=== PATIENT | female | born 1935 | race Caucasian/White ===

== ENCOUNTER 2019-01-07 20:41 | Inpatient (IN) | payer OTHER ==
--- NOTE | 2019-01-07 20:52 | PDOC ---
History of Present Illness - General Stated Complaint: FALL Time Seen by Provider: 01/07/19 20:52 History Source: Patient Exam Limitations: No Limitations - History of Present Illness Initial Comments: 01/07/19 21:09 Leena Oliva is a 83yF w HTN, a fib, valve replacement (20yrs ago) on coumadin and 3L NC baseline presenting with head trauma s/p fall. At 6pm today at [facility], she stood up from seat after eating dinner, turned around, legs gave way and fell down hitting lateral aspect of L eye orbit. No LOC, vomiting. Superficial abrasions to L and R hand thumbs. Denies cardiac arrythmia. Denies fever, face pain, change in vision, nausea, SOB, chest/AB pain, urinary/bowel mvmt changes. Had tetanus shot within last 10yrs. Past History - Past Medical History Allergies/Adverse Reactions: Allergies Allergy/AdvReac Type Severity Reaction Status Date / Time amoxicillin trihydrate Allergy Intermediate Rash Verified 01/07/19 20:55 [From Augmentin] potassium clavulanate Allergy Intermediate Rash Verified 01/07/19 20:55 [From Augmentin] codeine Allergy Unknown Rash Verified 01/07/19 20:55 propoxyphene HCl Allergy Unknown Rash Verified 01/07/19 20:55 [From Darvon] valsartan [From Diovan] Allergy Unknown Rash Verified 01/07/19 20:55 dairy products AdvReac Unknown Uncoded 01/07/19 20:55 Home Medications: Ambulatory Orders Aspirin [ASA -] 81 mg PO DAILY 05/09/14 Furosemide [Lasix -] 20 mg PO ACDIN 05/09/14 Furosemide [Lasix -] 40 mg PO ACBK 05/09/14 Metoprolol Tartrate 100 mg PO BID 05/09/14 Oyster Shell Calcium + D Tab 1 tab PO BID 05/09/14 Pantoprazole Sodium [Protonix] 40 mg PO DAILY 05/09/14 Potassium Chloride [K-Dur] 20 meq PO BID 05/09/14 Vitamin D3 1,000 units PO DAILY 05/09/14 Warfarin Sodium [Coumadin] 2.5 mg PO ASDIR 05/09/14 Warfarin Sodium [Coumadin] 5 mg PO ASDIR 05/09/14 Anemia: Yes Cardiac Disorders: Yes (at fib; rheumatic heart disease) GI Disorders: Yes (gerd) HTN: Yes - Surgical History Abdominal Surgery: Yes (ovarian cyst removed) Appendectomy: Yes Cardiac Surgery: Yes (valve replacement) Orthopedic Surgery: Yes (ruptured disc repair) - Suicide/Smoking/Psychosocial Hx Smoking History: Never smoked Review of Systems - Review of Systems Constitutional: No: Chills, Fever HEENTM: No: Eye Pain, Recent change in vision, Ear Pain, Nose Pain, Throat Pain , Mouth Pain Respiratory: No: Cough, Shortness of Breath Cardiac (ROS): No: Chest Pain, Lightheadedness, Palpitations ABD/GI: No: Abdominal Distended, Constipated, Diarrhea, Nausea, Vomiting : No: Burning, Dysuria, Discharge, Flank Pain, Hematuria, Incontinence Musculoskeletal: No: Back Pain, Joint Pain, Muscle Pain, Muscle Weakness Integumentary: No: Bruising Neurological: No: Headache, Numbness, Paresthesia, Seizure, Tingling Psychiatric: No: Anxiety, Depression, Stressors Endocrine: No: Excessive Sweating, Flushing, Intolerance to Cold, Intolerance to Heat Hematologic/Lymphatic: Yes: Easy Bleeding. No: Blood Clots *Physical Exam - Physical Exam General Appearance: Yes: Nourished, Appropriately Dressed. No: Apparent Distress HEENT: positive: EOMI, SALOME, Normal Voice, Hearing Grossly Normal, Other (5cm abrasion over L lateral eye orbit). negative: Scleral Icterus (R), Scleral Icterus (L), Nasal Congestion, Rhinorrhea Neck: positive: Supple. negative: Tender, Rigid Respiratory/Chest: positive: Lungs Clear, Normal Breath Sounds. negative: Chest Tender, Respiratory Distress, Crackles, Rales, Rhonchi, Stridor, Wheezing Cardiovascular: positive: S1, S2, Tachycardia, Irregularly Irregular, Other ( mechanical click). negative: Edema Gastrointestinal/Abdominal: positive: Normal Bowel Sounds, Flat, Soft. negative : Tender, Organomegaly Extremity: positive: Normal Capillary Refill, Other (abrasions L/R thenar eminences w dried blood and tape, no tenderness). 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 negative: Sensory Deficit, Confused, Disoriented ED Treatment Course - LABORATORY CBC & Chemistry Diagram: 01/07/19 22:00 01/07/19 22:00 Medical Decision Making - Medical Decision Making 01/07/19 21:18 CBC CMP trop coags EKG CXR UA Ux head/c-spine/facial bone CT show no acute bleed/fracture CXR shows bilateral basilar effusions EKG shows a fib HR 99, QTc 436 Hgb 8.1, INR 2.5 on coumadin, trop 0.07 UA neg *Draw 2nd trop, BNP, CBC at 1am Leena Oliva is a 83yF w HTN, a fib, valve replacement (20yrs ago) on coumadin and 3L NC baseline presenting with head trauma s/p fall. EKG shows atrial fibrillation. Head/c-spine/facial bone CT show no acute bleed/ fracture. Neuro intact, denies any pain. Hgb 8.1, INR 2.5 therapeutic on coumadin, elevated trop 0.07. CXR shows bilateral basilar effusions Admitted to tele Dr Upton for syncope in setting of elevated troponin, a fib, anemia. Placed cardiology consult order for [place] *Draw 2nd trop, BNP, CBC at 1am Signed out to night team PCP Dr Roque Upton fuller brush worker contact - [facility] [phone] *DC/Admit/Observation/Transfer Diagnosis at time of Disposition: Syncope Qualifiers: Syncope type: unspecified Qualified Code(s): R55 - Syncope and collapse Atrial fibrillation Qualifiers: Atrial fibrillation type: chronic Qualified Code(s): I48.2 - Chronic atrial fibrillation Anemia Qualifiers: Anemia type: unspecified type Qualified Code(s): D64.9 - Anemia, unspecified - Discharge Dispostion Condition at time of disposition: Good - Referrals - Patient Instructions - Post Discharge Activity
--- NOTE | 2019-01-07 20:54 | PDOC ---
Attending Attestation - Resident Resident Name: Mauro Mathews - ED Attending Attestation I have performed the following: I have examined & evaluated the patient, The case was reviewed & discussed with the resident, I agree w/resident's findings & plan - HPI HPI: 01/07/19 23:34 Pt fell at [facility] today; fell while turning. Unwitnessed. She has a hx of anemia requiring transfusions and afib and she is on blood thinners. - Physicial Exam PE: 01/07/19 23:07 Pt reports having a mechanical fall at the [facility]; she states that she has a hx of being anemic, and that she has had blood transfusions in the past. She didn't have any dizziness today. 01/07/19 23:35 Agree with resident exam - Medical Decision Making 01/07/19 23:34 Patient Name: AMADOR MARTIN THIS IS A PRELIMINARY REPORT FROM [facility] EXAM: CT head without contrast and CT face without contrast and CT cervical spine without contrast IMAGES: 151 DATE OF EXAM: 2019-01-07 22:07:07 REASON FOR EXAM: Fall COMPARISON: None. FINDINGS: CT head: There is cerebral atrophy. Chronic microvascular ischemic changes are noted. No acute intracranial hemorrhage or acute infarction. CT face: No acute maxillofacial fracture. No acute intraorbital injury. Mild left periorbital soft tissue edema. Minimal chronic sinus changes. Small left mastoid effusion. CT cervical spine: Hyperlordosis of the cervical spine with grossly normal alignment. Degenerative changes noted. No acute cervical spine fracture or dislocation. Chronic appearing compression fractures of T2 and T3 vertebrae. Chronic left first rib fracture. Fibrotic changes in lung apices with mild pleural calcifications. Possible right pleural effusion. 01/07/19 23:33 01/07/19 23:35 Admit to tele for abs; pt is tachycardic.
[2019-01-07 22:09] LABS: BASO % 1.1 % (0-2.0); EOS % 1.2 % (0-4.5); HEMATOCRIT 25.3 % (32.4-45.2); HEMOGLOBIN 8.1 GM/dL (10.7-15.3); MCHC 31.9 g/dl (32.0-36.0); MEAN CELL VOLUME 90.9 fl (80-96); MEAN PLT VOLUME 7.1 fl (7.5-11.1); MONO % 8.9 % (3.8-10.2); NEUT % 79.8 % (42.8-82.8); PLATELET COUNT 175 K/MM3 (134-434); RBC 2.78 M/mm3 (3.60-5.2); RDW 20.8 % (11.6-15.6); WHITE BLOOD COUNT 5.1 K/mm3 (4.0-10.0)
[2019-01-07 22:25] LABS: ALBUMIN 2.9 g/dl (3.4-5.0); BILIRUBIN,TOTAL 0.4 mg/dL (0.2-1); BLOOD UREA NITROGEN 37.2 mg/dL (7-18); CALCIUM 7.9 mg/dL (8.5-10.1); CREATININE 1.3 mg/dL (0.55-1.3); INR 2.56 (0.83-1.09); POTASSIUM 3.8 mmol/L (3.5-5.1); PROTHROMBIN TIME (PATIENT) 30.5 SEC (9.7-13.0); TOT PROT 5.5 g/dl (6.4-8.2)
[2019-01-07 22:45] LABS: ANISOCYTOSIS 2+; MACROCYTOSIS 1+
[2019-01-07 23:07] LABS: EPI CELLS 2.5 /HPF (0-5/HPF); HYALINE CASTS 8 /lpf (0-8); PH,URINE 5.5 (5.0-8.0); URINE APPEARANCE CLEAR; URINE BACTERIA 2.4 /hpf (NEGATIVE); URINE BILIRUBIN NEGATIVE (NEGATIVE); URINE COLOR YELLOW; URINE GLUCOSE (UA) NEGATIVE (NEGATIVE); URINE KETONE NEGATIVE (NEGATIVE); URINE LEUK ESTERASE 1+ (NEGATIVE); URINE NITRITE NEGATIVE (NEGATIVE); URINE PROTEIN NEGATIVE (NEGATIVE); URINE RBC 1 /hpf (0-4); URINE UROBILINOGEN 0.2 mg/dL (0.2-1.0); URINE WBC 10 /hpf (0-5)
[2019-01-08] MEDS ORDERED: WARFARIN NA 2.5 MG TABLET (FP) PO ONE (00:07)
[2019-01-08] MEDS ORDERED: ATORVASTATIN CA 40 MG TABLET (FP) PO ONE (00:09)
[2019-01-08] MEDS ORDERED: ATORVASTATIN CA 40 MG TABLET (FP) ONE (01:00)
[2019-01-08 01:09] LABS: BASO % 1.2 % (0-2.0); HEMATOCRIT 25.6 % (32.4-45.2); LYMPH % 6.2 % (8-40); MCH 28.7 pg (25.7-33.7); MCHC 31.4 g/dl (32.0-36.0); MEAN CELL VOLUME 91.5 fl (80-96); MEAN PLT VOLUME 7.4 fl (7.5-11.1); MONO % 9.1 % (3.8-10.2); NEUT % 82.5 % (42.8-82.8); PLATELET COUNT 173 K/MM3 (134-434); RDW 20.8 % (11.6-15.6); WHITE BLOOD COUNT 6.8 K/mm3 (4.0-10.0)
[2019-01-08 01:39] LABS: N-TERMINAL BNP 9094.9 pg/ml (5-450)
[2019-01-08 06:13] LABS: HEMATOCRIT 23.9 % (32.4-45.2); HEMOGLOBIN 7.7 GM/dL (10.7-15.3); MCH 29.4 pg (25.7-33.7); MCHC 32.2 g/dl (32.0-36.0); MEAN CELL VOLUME 91.2 fl (80-96); MEAN PLT VOLUME 7.3 fl (7.5-11.1); PLATELET COUNT 162 K/MM3 (134-434); RBC 2.62 M/mm3 (3.60-5.2); RDW 20.8 % (11.6-15.6); WHITE BLOOD COUNT 5.5 K/mm3 (4.0-10.0)
[2019-01-08 06:40] LABS: ALBUMIN 2.7 g/dl (3.4-5.0); BILIRUBIN,TOTAL 0.5 mg/dL (0.2-1); BLOOD UREA NITROGEN 36.6 mg/dL (7-18); CREATININE 1.2 mg/dL (0.55-1.3); POTASSIUM 3.5 mmol/L (3.5-5.1); TOT PROT 5.1 g/dl (6.4-8.2)
[2019-01-08 07:13] LABS: INR 1.99 (0.83-1.09); PROTHROMBIN TIME (PATIENT) 23.7 SEC (9.7-13.0)
--- NOTE | 2019-01-08 11:36 | CON.CARD ---
Consult Consult Specialty:: Cardiology Referred by:: Medicine Reason for Consultation:: fall/syncope, hx afib, heart valve replacement - History of Present Illness Chief Complaint: fall History of Present Illness: 83F h/o HTN, afib s/p mechanical MVR and AVR (>20 years ago) on coumadin and 3L NC O2 at [place] p/w fall, head trauma. On day of admission she stood up after eating dinner and felt her legs gave way. No dizziness, lightheadedness, syncope. In recent past she has felt short of breath lying down flat, recently has been on home O2. Used to see Dr. Faith for cardio, not sure when she last saw him and doesn't remember last echo. No edema, chest pain, palps. - Alcohol/Substance Use Hx Alcohol Use: No - Smoking History Smoking history: Never smoked Home Medications - Allergies Allergies/Adverse Reactions: Allergies Allergy/AdvReac Type Severity Reaction Status Date / Time amoxicillin trihydrate Allergy Intermediate Rash Verified 01/07/19 20:55 [From Augmentin] potassium clavulanate Allergy Intermediate Rash Verified 01/07/19 20:55 [From Augmentin] codeine Allergy Unknown Rash Verified 01/07/19 20:55 propoxyphene HCl Allergy Unknown Rash Verified 01/07/19 20:55 [From Darvon] valsartan [From Diovan] Allergy Unknown Rash Verified 01/07/19 20:55 dairy products AdvReac Unknown Uncoded 01/07/19 20:55 - Home Medications Home Medications: Ambulatory Orders Buspirone HCl [Buspar -] 5 mg PO BID 01/08/19 Docusate Sodium [Colace] 100 mg PO DAILY 01/08/19 Ferrous Sulfate 325 mg PO DAILY 01/08/19 Folic Acid 1 mg PO DAILY 01/08/19 Metoprolol Succinate 50 mg PO BID 01/08/19 Multivitamin,Ther and Minerals [Vitamin and Minerals] 1 each PO DAILY 01/08/19 Phytonadione [Mephyton -] 5 mg PO WEEKLY 01/08/19 Ranitidine HCl 150 mg PO DAILY 01/08/19 Sennosides [Senna] 17.2 mg PO DAILY 01/08/19 Torsemide 20 mg PO DAILY 01/08/19 Tuberculin,Purif.prot.deriv. [Tubersol] 0.1 ml ID DAILY 01/08/19 Warfarin Sodium [Coumadin] 2.5 mg PO ASDIR 01/08/19 Warfarin Sodium [Coumadin] 3 mg PO ASDIR 01/08/19 Family Medical History Family History: Unremarkable Review of Systems - Review of Systems Constitutional: reports: No Symptoms Eyes: reports: No Symptoms HENT: reports: No Symptoms Neck: reports: No Symptoms Cardiovascular: reports: No Symptoms Respiratory: reports: No Symptoms Gastrointestinal: reports: No Symptoms Genitourinary: reports: No Symptoms Musculoskeletal: reports: No Symptoms Integumentary: reports: No Symptoms Neurological: reports: No Symptoms Endocrine: reports: No Symptoms Hematology/Lymphatic: reports: No Symptoms Psychiatric: reports: No Symptoms Vital Signs: Vital Signs Temperature 98.1 F 01/08/19 06:08 Pulse Rate 82 01/08/19 10:00 Respiratory Rate 25 H 01/08/19 10:00 Blood Pressure 95/63 01/08/19 10:00 O2 Sat by Pulse Oximetry (%) 95 01/08/19 09:00 Constitutional: Yes: No Distress, Calm Eyes: Yes: Conjunctiva Clear, EOM Intact HENT: Yes: Atraumatic, Normocephalic Neck: Yes: Supple, Trachea Midline Respiratory: Yes: Regular, Diminished (dec breath sounds at bases bilaterally) Gastrointestinal: Yes: Normal Bowel Sounds, Soft Cardiovascular: Yes: Pulse Irregular JVD: Yes Heart Sounds: Yes: S1, S2 Edema: No Peripheral Pulses WNL: Yes Peripheral Pulses: 2+ Left Doralis Pedis, 2+ Right Dorsalis Pedis Integumentary: No: Jaundice Neurological: Yes: Alert, Oriented Psychiatric: No: Agitated - Other Data Labs, Other Data: CBC, BMP 01/08/19 05:25 01/08/19 05:25 INR, PTT INR 1.99 (0.83-1.09) H 01/08/19 05:25 Troponin, BNP 01/07/19 01/08/19 01/08/19 22:00 00:52 05:25 Troponin I 0.07 H 0.07 H 0.06 H B-Natriuretic Peptide 9094.9 H Troponin, BNP 01/07/19 01/08/19 01/08/19 22:00 00:52 05:25 Troponin I 0.07 H 0.07 H 0.06 H B-Natriuretic Peptide 9094.9 H Assessment/Plan EKG afib, no ischemic changes CXR: stephie pleural effusions, + congestive changes tele: afib, rate controlled fall - patient denies syncope, dizziness - monitoring on tele - echo ordered stephie pleural effusions, elevated BNP, acute HF exacerbation - BNP >9000, JVD on exam with congestive changes on CXR - echo pending - on torsemide 20 mg daily outpatient - lasix 40 mg IV daily, monitor Cr, lytes daily weights elevated trop - indeterminate range, no ischemic changes on EKG - unlikely ACS h/o mechanical MVR, AVR - goal INR 2.5-3.5 - cont coumadin - echo pending afib - cont coumadin, metoprolol, rate stable HLD - cont statin
[2019-01-08] MEDS: FUROSEMIDE 40 MG/4 ML INJECTABLE VIAL IVPUSH SCH (12:10)
--- NOTE | 2019-01-08 12:51 | HP ---
Admitting History and Physical - Primary Care Physician PCP: Roque Upton - Admission Chief Complaint: fall History of Present Illness: Pt with known mechanical AVR, MVR, A fib, on AC, fell (at NH, stood up from wheelchair, turned and fell) and hit her head. History Source: Patient Limitations to Obtaining History: No Limitations - Past Medical History Cardiovascular: Yes: AFIB, HTN Heme/Onc: Yes: Anemia (s/p recent PRBC Tx) - Past Surgical History Additional Past Surgical History: mechanical AVR, and MVR - Advance Directives Advance Directives: Yes: DNR, MOLST - Smoking History Smoking history: Never smoked - Alcohol/Substance Use Hx Alcohol Use: No Home Medications - Allergies Allergies/Adverse Reactions: Allergies Allergy/AdvReac Type Severity Reaction Status Date / Time amoxicillin trihydrate Allergy Intermediate Rash Verified 01/07/19 20:55 [From Augmentin] potassium clavulanate Allergy Intermediate Rash Verified 01/07/19 20:55 [From Augmentin] codeine Allergy Unknown Rash Verified 01/07/19 20:55 propoxyphene HCl Allergy Unknown Rash Verified 01/07/19 20:55 [From Darvon] valsartan [From Diovan] Allergy Unknown Rash Verified 01/07/19 20:55 dairy products AdvReac Unknown Uncoded 01/07/19 20:55 - Home Medications Home Medications: Ambulatory Orders Buspirone HCl [Buspar -] 5 mg PO BID 01/08/19 Docusate Sodium [Colace] 100 mg PO DAILY 01/08/19 Ferrous Sulfate 325 mg PO DAILY 01/08/19 Folic Acid 1 mg PO DAILY 01/08/19 Metoprolol Succinate 50 mg PO BID 01/08/19 Multivitamin,Ther and Minerals [Vitamin and Minerals] 1 each PO DAILY 01/08/19 Phytonadione [Mephyton -] 5 mg PO WEEKLY 01/08/19 Ranitidine HCl 150 mg PO DAILY 01/08/19 Sennosides [Senna] 17.2 mg PO DAILY 01/08/19 Torsemide 20 mg PO DAILY 01/08/19 Tuberculin,Purif.prot.deriv. [Tubersol] 0.1 ml ID DAILY 01/08/19 Warfarin Sodium [Coumadin] 2.5 mg PO ASDIR 01/08/19 Warfarin Sodium [Coumadin] 3 mg PO ASDIR 01/08/19 Review of Systems - Review of Systems Constitutional: denies: Chills, Fever Eyes: denies: Blurred Vision, Double Vision HENT: denies: Ear Discharge, Nasal Congestion, Throat Pain Neck: reports: Stiffness. denies: Pain on Movement Cardiovascular: reports: Edema, Palpitations. denies: Chest Pain Respiratory: denies: Cough, SOB Gastrointestinal: denies: Abdominal Pain, Diarrhea, Vomiting Genitourinary: denies: Burning, Discharge Musculoskeletal: denies: Back Pain, Muscle Pain Integumentary: denies: Pruritis, Rash Neurological: denies: Change in Speech, Confusion, Headache, Numbness Endocrine: denies: Excessive Sweating, Intolerance to Cold Hematology/Lymphatic: reports: Easily Bruised (since on Coumadin) Psychiatric: denies: Anxiety, Depression Physical Examination Vital Signs: Vital Signs Temperature 98.1 F 01/08/19 06:08 Pulse Rate 82 01/08/19 10:00 Respiratory Rate 25 H 01/08/19 10:00 Blood Pressure 95/63 01/08/19 10:00 O2 Sat by Pulse Oximetry (%) 95 01/08/19 09:00 Constitutional: Yes: No Distress Eyes: Yes: Conjunctiva Clear, EOM Intact HENT: Yes: Epistaxis, Rhinnorhea. No: Drooling Neck: Yes: Lymphadenopathy Cardiovascular: Yes: Pulse Irregular, S1, S2 Respiratory: Yes: Regular, CTA Bilaterally, Rales Gastrointestinal: Yes: Normal Bowel Sounds, Soft. No: Tenderness ...Rectal Exam: Yes: Deferred Renal/: Yes: CVA Tenderness - Left, CVA Tenderness - Right Breast(s): Yes: Other (deferred) Musculoskeletal: No: Back Pain, Joint Swelling Edema: No Integumentary: Yes: Bruising (left periorbital) Neurological: Yes: Alert, Oriented, Other (motor and sensory examiantion is symmetric) Psychiatric: Yes: Alert, Oriented Labs: CBC, BMP 01/08/19 05:25 01/08/19 05:25 Imaging - Results Chest X-ray: Report Reviewed X-ray: Report Reviewed Cat Scan: Report Reviewed Problem List - Problems (1) Elevation of cardiac enzymes Code(s): R74.8 - ABNORMAL LEVELS OF OTHER SERUM ENZYMES (2) Mechanical heart valve present Code(s): Z95.2 - PRESENCE OF PROSTHETIC HEART VALVE (3) Anemia Code(s): D64.9 - ANEMIA, UNSPECIFIED Qualifiers: Anemia type: unspecified type Qualified Code(s): D64.9 - Anemia, unspecified (4) Fall Code(s): W19.XXXA - UNSPECIFIED FALL, INITIAL ENCOUNTER (5) Atrial fibrillation Code(s): I48.91 - UNSPECIFIED ATRIAL FIBRILLATION Qualifiers: Atrial fibrillation type: chronic Qualified Code(s): I48.2 - Chronic atrial fibrillation (6) Syncope Code(s): R55 - SYNCOPE AND COLLAPSE Qualifiers: Syncope type: unspecified Qualified Code(s): R55 - Syncope and collapse Assessment/Plan Admit to monitor bed Cardio consult, appreciated Serial CE Unclear cause of anemia, send iron studies Anemia in a pt with + Trop I; to transfuse PRBC; monito rINR Subtherapeutic INR for a person with mechanical valve; start Heparin iv infusion , COumadin; to f/u INR Pt's condition was reviewed with pt and 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
[2019-01-08] MEDS ORDERED: HEPARIN NA (PORCINE) 5,000 UNITS/ML 1ML VIAL IVPUSH PRN ×2 (14:37)
[2019-01-08] MEDS ORDERED: TORSEMIDE 20 MG TABLET (FP) PO SCH (14:45)
[2019-01-08] MEDS: FOLIC ACID 1 MG TABLET (FP) PO SCH (15:44)
[2019-01-08] MEDS: HEPARIN - 25,000 UNIT in SODIUM CHLORIDE 495 ML IV SCH (15:44)
[2019-01-08] MEDS: DOCUSATE SODIUM 100 MG CAPSULE (FP) PO SCH (15:44)
[2019-01-08] MEDS: RANITIDINE HCL 150 MG TABLET (FP) PO SCH (15:44)
[2019-01-08 17:34] LABS: IRON SERUM 33 ug/dL (50-175); TOTAL IRON BINDING CAPACITY 327 ug/dL (250-450)
[2019-01-08] MEDS ORDERED: WARFARIN NA 2.5 MG TABLET (FP) PO SCH (18:00)
[2019-01-08] MEDS ORDERED: WARFARIN NA 3 MG TABLET PO ONE (18:00)
[2019-01-08] MEDS: busPIRone HCL 5 MG TABLET PO SCH (21:09)
[2019-01-08] MEDS: SENNOSIDES 8.6MG TABLET (FP) PO SCH (21:09)
[2019-01-09 06:29] LABS: HEMATOCRIT 25.2 % (32.4-45.2); HEMOGLOBIN 8.1 GM/dL (10.7-15.3); MCH 29.5 pg (25.7-33.7); MCHC 32.3 g/dl (32.0-36.0); MEAN CELL VOLUME 91.3 fl (80-96); MEAN PLT VOLUME 7.7 fl (7.5-11.1); PLATELET COUNT 146 K/MM3 (134-434); RBC 2.76 M/mm3 (3.60-5.2); RDW 20.4 % (11.6-15.6); WHITE BLOOD COUNT 4.9 K/mm3 (4.0-10.0)
[2019-01-09 06:54] LABS: ALBUMIN 2.4 g/dl (3.4-5.0); BILIRUBIN,TOTAL 1.2 mg/dL (0.2-1); BLOOD UREA NITROGEN 42.2 mg/dL (7-18); CALCIUM 7.6 mg/dL (8.5-10.1); POTASSIUM 3.8 mmol/L (3.5-5.1); TOT PROT 4.7 g/dl (6.4-8.2)
--- NOTE | 2019-01-09 07:11 | EKG ---
Test Reason : Blood Pressure : / mmHG Vent. Rate : 099 BPM Atrial Rate : 110 BPM P-R Int : 000 ms QRS Dur : 082 ms QT Int : 340 ms P-R-T Axes : 000 068 006 degrees QTc Int : 436 ms ATRIAL FIBRILLATION NONSPECIFIC ST ABNORMALITY ABNORMAL ECG NO PREVIOUS ECGS AVAILABLE Confirmed by NARINDER MARSHALL MD ([id number]) on 01/09/2019 7:11:24 AM Referred By: Confirmed By:NARINDER MARSHALL MD
--- NOTE | 2019-01-09 09:02 | PN ---
Progress Note, Physician Chief Complaint: s/p fall History of Present Illness: fall sec to leg weakness. no syncope. denies sob, leg swelling. no cp, palp - Current Medication List Current Medications: Active Medications Buspirone HCl (Buspar -) 5 mg PO BID [facility] Last Admin: 01/08/19 21:09 Dose: 5 mg Docusate Sodium (Colace -) 100 mg PO DAILY [facility] Last Admin: 01/08/19 15:44 Dose: 100 mg Folic Acid (Folic Acid -) 1 mg PO DAILY [facility] Last Admin: 01/08/19 15:44 Dose: 1 mg Furosemide (Lasix Injection -) 40 mg IVPUSH DAILY [facility] Last Admin: 01/08/19 12:10 Dose: 40 mg Heparin Sodium (Porcine) (Heparin -) 1,000 unit IVPUSH PRN PRN PRN Reason: Heparin Heparin Sodium (Porcine) (Heparin -) 5,000 unit IVPUSH PRN PRN PRN Reason: Heparin Heparin Sodium (Porcine) 25, (000 unit/ Sodium Chloride) 500 mls @ 16 mls/hr IV TITR [facility]; Protocol Last Titration: 01/09/19 04:19 Dose: 800 unit/hr, 16 mls/hr Metoprolol Succinate (Toprol Xl -) 50 mg PO BID [facility] Last Admin: 01/08/19 21:09 Dose: 50 mg Ranitidine HCl (Zantac -) 150 mg PO DAILY [facility] Last Admin: 01/08/19 15:44 Dose: 150 mg Senna (Senna -) 2 tab PO HS [facility] Last Admin: 01/08/19 21:09 Dose: 2 tab - Objective Vital Signs: Vital Signs Temperature 97.8 F 01/09/19 06:00 Pulse Rate 78 01/09/19 06:00 Respiratory Rate 21 H 01/09/19 06:00 Blood Pressure 107/61 01/09/19 06:00 O2 Sat by Pulse Oximetry (%) 95 01/08/19 21:00 Constitutional: Yes: Well Nourished, No Distress, Calm Cardiovascular: Yes: Pulse Irregular (mech S2), S1, S2. No: Gallop, Murmur Respiratory: Yes: Regular, Diminished (bases), Rales (R base). No: Accessory Muscle Use Extremities: No: Cold Edema: No Neurological: Yes: Alert, Oriented Psychiatric: No: Agitated Labs: CBC, BMP 01/09/19 05:20 01/09/19 05:20 INR, PTT INR 1.99 (0.83-1.09) H 01/08/19 05:25 Assessment/Plan EKG afib, no ischemic changes CXR: stephie pleural effusions, + congestive changes tele: AF, good HR. artifact fall - patient denies syncope, dizziness--fall mechanical in nature - on AC as outpt, CT head here no bleed - echo ordered acute HF exacerbation - BNP >9000, JVD on exam with congestive changes on CXR - echo pending - on torsemide 20 mg daily outpatient - denies sob, labs stable. cont lasix 40 mg IV daily, monitor labs (and daily wts once pt on floor). rpt cxr in am elevated trop - indeterminate range, no ischemic changes on EKG - unlikely ACS h/o mechanical MVR, AVR - goal INR 2.5-3.5 - cont coumadin - cont UFH gtt until INR therapeutic - echo pending afib - cont coumadin, metoprolol, rate stable anemia: - counts stable here, no baseline data available HLD - cont statin
[2019-01-09] MEDS: busPIRone HCL 5 MG TABLET PO SCH ×2 (11:04→21:19)
[2019-01-09] MEDS: DOCUSATE SODIUM 100 MG CAPSULE (FP) PO SCH (11:05)
[2019-01-09] MEDS: FUROSEMIDE 40 MG/4 ML INJECTABLE VIAL IVPUSH SCH (11:05)
[2019-01-09] MEDS: RANITIDINE HCL 150 MG TABLET (FP) PO SCH (11:05)
[2019-01-09] MEDS: FOLIC ACID 1 MG TABLET (FP) PO SCH (11:05)
[2019-01-09 12:30] LABS: INR 2.32 (0.83-1.09); PROTHROMBIN TIME (PATIENT) 27.6 SEC (9.7-13.0)
--- NOTE | 2019-01-09 16:21 | ECHO ---
Name: AMADOR MARTIN, Exam:Adult Echocardiogram Study Date: 01/09/2019 01:32 PM Age: 83 yrs Reason For Study: HISTORY OF MVR, AVR, CHF Height: 64 in Weight: 80 lb BSA: 1.3 m2 MMode/2D Measurements & Calculations IVSd: 0.95 cm Ao root diam: 2.7 cm LVIDd: 3.6 cm LA dimension: 5.3 cm LVIDs: 2.7 cm LVPWd: 1.1 cm LVPWs: 1.2 cm EDV(Teich): 53.7 ml ESV(Teich): 27.2 ml LVOT diam: 2.1 cm LAV (MOD-bp): 84.0 ml Doppler Measurements & Calculations Ao V2 max: 247.6 cm/sec MVA(VTI): 2.0 cm2 Ao max P.6 mmHg MV V2 max: 169.4 cm/sec Ao V2 mean: 156.6 cm/sec MV max P.5 mmHg Ao mean P.5 mmHg MV V2 mean: 84.8 cm/sec Ao V2 VTI: 45.2 cm MV mean P.9 mmHg MV V2 VTI: 26.0 cm B[place](I,D): 1.2 cm2 B[place](V,D): 1.2 cm2 LV V1 max P.9 mmHg MR max daron: 320.0 cm/sec LV V1 mean P.4 mmHg MR max P.0 mmHg LV V1 max: 85.4 cm/sec LV V1 mean: 53.9 cm/sec LV V1 VTI: 15.6 cm SV(LVOT): 52.2 ml TR max daron: 327.1 cm/sec TR max P.6 mmHg RVSP(TR): 53.6 mmHg PA V2 max: 84.8 cm/sec PI end-d daron: 140.5 cm/sec PA max P.9 mmHg RAP systole: 10.0 mmHg Procedure A complete two-dimensional transthoracic echocardiogram was performed (2D, M-mode, Doppler and color flow Doppler). Technically limited study. Left Ventricle The left ventricle is normal in size. Left ventricular systolic function is mildly reduced. Ejection Fraction = 45-50%. There is mild global hypokinesis of the left ventricle. Right Ventricle The right ventricle is not well visualized. Atria The left atrium is severely dilated. The right atrium is severely dilated. Mitral Valve There is a mechanical mitral valve. The prosthetic mitral valve is well-seated. There is mild mitral regurgitation. Tricuspid Valve The tricuspid valve is normal in structure and function. There is moderate to severe tricuspid regurg itation. Pulmonary artery systolic pressure is at least 54 mmHg if RA pressure is assumed 3 mmHg (IVC was not clearly visualized). Aortic Valve There is a mechanical aortic valve. The prosthetic aortic valve is well-seated. Mild aortic regurgita tion. Pulmonic Valve The pulmonic valve is not well visualized. Mild to moderate pulmonic valvular regurgitation. Great Vessels The aortic root is normal size. Pericardium/Pleura There is no pericardial effusion. Interpretation Summary Technically limited study The left ventricle is normal in size. Left ventricular systolic function is mildly reduced. There is mild global hypokinesis of the left ventricle. Ejection Fraction = 45-50%. The right ventricle is not well visualized. The left atrium is severely dilated. The right atrium is severely dilated. There is a mechanical mitral valve. The prosthetic mitral valve is well-seated. There is mild mitral regurgitation. There is moderate to severe tricuspid regurgitation. Pulmonary artery systolic pressure is at least 54 mmHg if RA pressure is assumed 3 mmHg (IVC was not clearly visualized) There is a mechanical aortic valve. The prosthetic aortic valve is well-seated. Mild aortic regurgitation. Mild to moderate pulmonic valvular regurgitation. There is no pericardial effusion. Taj Park MD 01/09/2019 04:20 PM
[2019-01-09] MEDS ORDERED: WARFARIN NA 3 MG TABLET PO ONE (18:00)
[2019-01-09] MEDS ORDERED: PT OWN MED DRAWER 7, Y5N ONE (18:01)
--- NOTE | 2019-01-09 20:06 | PN ---
Progress Note, Physician History of Present Illness: Pt w/o MORRIS, dizziness, SOB, CP, palpitations, abd pain, motpr weakness, no sensory deficit. - Current Medication List Current Medications: Active Medications Buspirone HCl (Buspar -) 5 mg PO BID [facility] Last Admin: 01/09/19 11:04 Dose: 5 mg Docusate Sodium (Colace -) 100 mg PO DAILY [facility] Last Admin: 01/09/19 11:05 Dose: 100 mg Folic Acid (Folic Acid -) 1 mg PO DAILY [facility] Last Admin: 01/09/19 11:05 Dose: 1 mg Furosemide (Lasix Injection -) 40 mg IVPUSH DAILY [facility] Last Admin: 01/09/19 11:05 Dose: 40 mg Heparin Sodium (Porcine) (Heparin -) 1,000 unit IVPUSH PRN PRN PRN Reason: Heparin Heparin Sodium (Porcine) (Heparin -) 5,000 unit IVPUSH PRN PRN PRN Reason: Heparin Heparin Sodium (Porcine) 25, (000 unit/ Sodium Chloride) 500 mls @ 16 mls/hr IV TITR [facility]; Protocol Last Titration: 01/09/19 11:16 Dose: 650 unit/hr, 13 mls/hr Metoprolol Succinate (Toprol Xl -) 50 mg PO BID [facility] Last Admin: 01/09/19 11:05 Dose: 50 mg Ranitidine HCl (Zantac -) 150 mg PO DAILY [facility] Last Admin: 01/09/19 11:05 Dose: 150 mg Senna (Senna -) 2 tab PO HS [facility] Last Admin: 01/08/19 21:09 Dose: 2 tab - Objective Vital Signs: Vital Signs Temperature 97.9 F 01/09/19 17:57 Pulse Rate 81 01/09/19 17:57 Respiratory Rate 18 01/09/19 17:57 Blood Pressure 108/46 L 01/09/19 17:57 O2 Sat by Pulse Oximetry (%) 98 01/09/19 12:31 Constitutional: Yes: No Distress, Calm Cardiovascular: Yes: Regular Rate and Rhythm, Murmur, S1, S2 Respiratory: Yes: Regular, Other (crackles at right base) Gastrointestinal: Yes: Normal Bowel Sounds, Soft. No: Tenderness Edema: No Neurological: Yes: Alert, Oriented, Other (motor and sensory symmetric in UE/ LE / face) Labs: CBC, BMP 01/09/19 05:20 01/09/19 05:20 INR, PTT INR 2.32 (0.83-1.09) H 01/09/19 07:10 Problem List - Problems (1) Elevation of cardiac enzymes Code(s): R74.8 - ABNORMAL LEVELS OF OTHER SERUM ENZYMES (2) Mechanical heart valve present Code(s): Z95.2 - PRESENCE OF PROSTHETIC HEART VALVE (3) Anemia Code(s): D64.9 - ANEMIA, UNSPECIFIED Qualifiers: Anemia type: unspecified type Qualified Code(s): D64.9 - Anemia, unspecified (4) Fall Code(s): W19.XXXA - UNSPECIFIED FALL, INITIAL ENCOUNTER (5) Atrial fibrillation Code(s): I48.91 - UNSPECIFIED ATRIAL FIBRILLATION Qualifiers: Atrial fibrillation type: chronic Qualified Code(s): I48.2 - Chronic atrial fibrillation (6) Syncope Code(s): R55 - SYNCOPE AND COLLAPSE Qualifiers: Syncope type: unspecified Qualified Code(s): R55 - Syncope and collapse Assessment/Plan Admitted to monitor bed Cardio consult, appreciated Serial CE -negative this AM S/p PRBC Tx (one unit) Subtherapeutic INR for a person with mechanical valve; started on Heparin infusion; on Coumadin; to f/u INR Pt's condition was reviewed with pt;all questions were answered. Pt's condition was reviewed with her nurses ( morning and evening shift) AM labs.
[2019-01-09] MEDS: HEPARIN - 25,000 UNIT in SODIUM CHLORIDE 495 ML IV SCH (21:16)
[2019-01-09] MEDS: SENNOSIDES 8.6MG TABLET (FP) PO SCH (21:19)
[2019-01-09 22:13] LABS: INR 2.76 (0.83-1.09); PROTHROMBIN TIME (PATIENT) 32.9 SEC (9.7-13.0)
[2019-01-10 05:54] LABS: HEMATOCRIT 25.4 % (32.4-45.2); HEMOGLOBIN 8.1 GM/dL (10.7-15.3); MCH 29.5 pg (25.7-33.7); MEAN CELL VOLUME 92.2 fl (80-96); PLATELET COUNT 167 K/MM3 (134-434); RBC 2.75 M/mm3 (3.60-5.2); RDW 20.3 % (11.6-15.6)
[2019-01-10 06:20] LABS: INR 2.89 (0.83-1.09); PROTHROMBIN TIME (PATIENT) 34.5 SEC (9.7-13.0)
[2019-01-10 06:39] LABS: ALBUMIN 2.6 g/dl (3.4-5.0); BILIRUBIN,TOTAL 0.4 mg/dL (0.2-1); BLOOD UREA NITROGEN 44.3 mg/dL (7-18); CALCIUM 7.9 mg/dL (8.5-10.1); POTASSIUM 3.9 mmol/L (3.5-5.1)
[2019-01-10] MEDS: FOLIC ACID 1 MG TABLET (FP) PO SCH (09:51)
[2019-01-10] MEDS: RANITIDINE HCL 150 MG TABLET (FP) PO SCH (09:51)
[2019-01-10] MEDS: FUROSEMIDE 40 MG/4 ML INJECTABLE VIAL IVPUSH SCH ×2 (09:51→18:44)
[2019-01-10] MEDS: busPIRone HCL 5 MG TABLET PO SCH ×2 (09:51→22:04)
[2019-01-10] MEDS: DOCUSATE SODIUM 100 MG CAPSULE (FP) PO SCH (09:51)
--- NOTE | 2019-01-10 09:51 | PN ---
Progress Note, Physician History of Present Illness: Pt w/o MORRIS, dizziness, SOB, CP, palpitations, abd pain, motor weakness, no sensory deficit. - Current Medication List Current Medications: Active Medications Buspirone HCl (Buspar -) 5 mg PO BID [facility] Last Admin: 01/09/19 21:19 Dose: 5 mg Docusate Sodium (Colace -) 100 mg PO DAILY [facility] Last Admin: 01/09/19 11:05 Dose: 100 mg Folic Acid (Folic Acid -) 1 mg PO DAILY [facility] Last Admin: 01/09/19 11:05 Dose: 1 mg Furosemide (Lasix Injection -) 40 mg IVPUSH DAILY [facility] Last Admin: 01/09/19 11:05 Dose: 40 mg Heparin Sodium (Porcine) (Heparin -) 1,000 unit IVPUSH PRN PRN PRN Reason: Heparin Heparin Sodium (Porcine) (Heparin -) 5,000 unit IVPUSH PRN PRN PRN Reason: Heparin Heparin Sodium (Porcine) 25, (000 unit/ Sodium Chloride) 500 mls @ 16 mls/hr IV TITR [facility]; Protocol Last Admin: 01/09/19 21:16 Dose: Not Given Metoprolol Succinate (Toprol Xl -) 50 mg PO BID [facility] Last Admin: 01/09/19 21:19 Dose: 50 mg Ranitidine HCl (Zantac -) 150 mg PO DAILY [facility] Last Admin: 01/09/19 11:05 Dose: 150 mg Senna (Senna -) 2 tab PO HS [facility] Last Admin: 01/09/19 21:19 Dose: 2 tab - Objective Vital Signs: Vital Signs Temperature 97.7 F 01/10/19 09:33 Pulse Rate 64 01/10/19 09:33 Respiratory Rate 17 01/10/19 09:33 Blood Pressure 114/55 L 01/10/19 09:33 O2 Sat by Pulse Oximetry (%) 100 01/10/19 08:53 Constitutional: Yes: No Distress, Calm Cardiovascular: Yes: Regular Rate and Rhythm, S1, S2 Respiratory: Yes: Regular, Other (crackles at both bases and 1/3 up) Gastrointestinal: Yes: Normal Bowel Sounds, Soft. No: Tenderness Edema: No Neurological: Yes: Alert, Oriented, Other (motor and sensory is symmetric inUE/ LE/ face.) Labs: CBC, BMP 01/10/19 05:00 01/10/19 05:00 INR, PTT INR 2.89 (0.83-1.09) H 01/10/19 05:00 - ....Imaging Other: Report Reviewed (Echo) Problem List - Problems (1) Elevation of cardiac enzymes Code(s): R74.8 - ABNORMAL LEVELS OF OTHER SERUM ENZYMES (2) Mechanical heart valve present Code(s): Z95.2 - PRESENCE OF PROSTHETIC HEART VALVE (3) Anemia Code(s): D64.9 - ANEMIA, UNSPECIFIED Qualifiers: Anemia type: unspecified type Qualified Code(s): D64.9 - Anemia, unspecified (4) Fall Code(s): W19.XXXA - UNSPECIFIED FALL, INITIAL ENCOUNTER (5) Atrial fibrillation Code(s): I48.91 - UNSPECIFIED ATRIAL FIBRILLATION Qualifiers: Atrial fibrillation type: chronic Qualified Code(s): I48.2 - Chronic atrial fibrillation (6) Syncope Code(s): R55 - SYNCOPE AND COLLAPSE Qualifiers: Syncope type: unspecified Qualified Code(s): R55 - Syncope and collapse Assessment/Plan Admitted to monitor bed Cardio consult, appreciated Serial CE -negative S/p PRBC Tx (one unit) Consider extra Lasix INR to keep w/i 2.5 to 3.5 range (for a person with mechanical valve); to f/u INR Pt's condition was reviewed with her nurses AM labs.
--- NOTE | 2019-01-10 10:38 | PN ---
Progress Note (short form) - Note Progress Note: s: no chest pain, palps, dizziness, dyspnea Current Medications Buspirone HCl (Buspar -) 5 mg PO BID [facility] Last Admin: 01/10/19 09:51 Dose: 5 mg Docusate Sodium (Colace -) 100 mg PO DAILY [facility] Last Admin: 01/10/19 09:51 Dose: 100 mg Folic Acid (Folic Acid -) 1 mg PO DAILY [facility] Last Admin: 01/10/19 09:51 Dose: 1 mg Furosemide (Lasix Injection -) 40 mg IVPUSH DAILY [facility] Last Admin: 01/10/19 09:51 Dose: 40 mg Heparin Sodium (Porcine) (Heparin -) 1,000 unit IVPUSH PRN PRN PRN Reason: Heparin Heparin Sodium (Porcine) (Heparin -) 5,000 unit IVPUSH PRN PRN PRN Reason: Heparin Heparin Sodium (Porcine) 25, (000 unit/ Sodium Chloride) 500 mls @ 16 mls/hr IV TITR [facility]; Protocol Last Admin: 01/09/19 21:16 Dose: Not Given Metoprolol Succinate (Toprol Xl -) 50 mg PO BID [facility] Last Admin: 01/10/19 09:51 Dose: 50 mg Ranitidine HCl (Zantac -) 150 mg PO DAILY [facility] Last Admin: 01/10/19 09:51 Dose: 150 mg Senna (Senna -) 2 tab PO HS [facility] Last Admin: 01/09/19 21:19 Dose: 2 tab Vital Signs Period Temp Pulse Resp BP Sys/Vergara Pulse Ox Last 24 Hr 97.7 F-97.9 F 64-88 17-18 95-126/46-86 98-100 Constitutional: Yes: Well Nourished, No Distress, Calm Cardiovascular: Yes: Pulse Irregular ([facility] S2), S1, S2. No: Gallop, Murmur Respiratory: Yes: Regular, Diminished (bases), Rales (R base). No: Accessory Muscle Use Extremities: No: Cold Edema: No Neurological: Yes: Alert, Oriented Psychiatric: No: Agitated Assessment/Plan EKG afib, no ischemic changes CXR: stephie pleural effusions, + congestive changes echo 12/2018 tds, EF 45-50% mildly reduced LV function, RV not well visualized, LA/RA severely dilated, mech MVR/AVR well seated, mild MR, mild AR tele: AF, good HR. artifact fall - patient denies syncope, dizziness--fall mechanical in nature - on AC as outpt, CT head here no bleed acute HF exacerbation - BNP >9000, JVD on exam with congestive changes on CXR - echo mildly reduced LV function with stable MVR/AVR function - on torsemide 20 mg daily outpatient - denies sob, labs stable. CXR unchanged, weight stable. inc lasix to 40 mg IV BID elevated trop - indeterminate range, no ischemic changes on EKG - unlikely ACS h/o mechanical MVR, AVR - goal INR 2.5-3.5 - cont coumadin - cont UFH gtt until INR therapeutic - echo shows stable valve function, outpatient follow up afib - cont coumadin, metoprolol, rate stable anemia: - counts stable here, no baseline data available HLD - cont statin
[2019-01-10] MEDS: HEPARIN - 25,000 UNIT in SODIUM CHLORIDE 495 ML IV SCH (18:44)
[2019-01-10] MEDS: SENNOSIDES 8.6MG TABLET (FP) PO SCH (22:05)
[2019-01-10] MEDS ORDERED: WARFARIN NA 2.5 MG TABLET (FP) PO ONE (22:45)
[2019-01-11 06:06] LABS: HEMATOCRIT 23.4 % (32.4-45.2); HEMOGLOBIN 7.5 GM/dL (10.7-15.3); MCH 29.7 pg (25.7-33.7); MEAN CELL VOLUME 92.7 fl (80-96); MEAN PLT VOLUME 7.7 fl (7.5-11.1); PLATELET COUNT 171 K/MM3 (134-434); RBC 2.53 M/mm3 (3.60-5.2); WHITE BLOOD COUNT 5.3 K/mm3 (4.0-10.0)
[2019-01-11 06:17] LABS: BLOOD UREA NITROGEN 34.8 mg/dL (7-18); CALCIUM 8.1 mg/dL (8.5-10.1); CREATININE 0.9 mg/dL (0.55-1.3); POTASSIUM 3.8 mmol/L (3.5-5.1)
[2019-01-11 06:21] LABS: INR 3.75 (0.83-1.09); PROTHROMBIN TIME (PATIENT) 44.8 SEC (9.7-13.0)
[2019-01-11] MEDS: FUROSEMIDE 40 MG/4 ML INJECTABLE VIAL IVPUSH SCH ×2 (06:24→15:38)
[2019-01-11] MEDS: FOLIC ACID 1 MG TABLET (FP) PO SCH (09:43)
[2019-01-11] MEDS: DOCUSATE SODIUM 100 MG CAPSULE (FP) PO SCH (09:43)
[2019-01-11] MEDS: RANITIDINE HCL 150 MG TABLET (FP) PO SCH (09:43)
[2019-01-11] MEDS: busPIRone HCL 5 MG TABLET PO SCH ×2 (09:43→22:04)
--- NOTE | 2019-01-11 09:52 | PN ---
Progress Note, Physician History of Present Illness: Pt w/o MORRIS, dizziness, SOB, CP, palpitations, abd pain, motor weakness, no sensory deficit. Pt w/o nose bleed, no gum bleed, no coughing up blood, no blood in urine, no blood in stool. - Current Medication List Current Medications: Active Medications Buspirone HCl (Buspar -) 5 mg PO BID [facility] Last Admin: 01/11/19 09:43 Dose: 5 mg Docusate Sodium (Colace -) 100 mg PO DAILY [facility] Last Admin: 01/11/19 09:43 Dose: 100 mg Folic Acid (Folic Acid -) 1 mg PO DAILY [facility] Last Admin: 01/11/19 09:43 Dose: 1 mg Furosemide (Lasix Injection -) 40 mg IVPUSH BID@0600,1400 [facility] Last Admin: 01/11/19 06:24 Dose: 40 mg Metoprolol Succinate (Toprol Xl -) 50 mg PO BID [facility] Last Admin: 01/11/19 09:43 Dose: 50 mg Ranitidine HCl (Zantac -) 150 mg PO DAILY [facility] Last Admin: 01/11/19 09:43 Dose: 150 mg Senna (Senna -) 2 tab PO HS [facility] Last Admin: 01/10/19 22:05 Dose: 2 tab - Objective Vital Signs: Vital Signs Temperature 97.6 F 01/11/19 00:00 Pulse Rate 82 01/11/19 04:00 Respiratory Rate 16 01/11/19 04:00 Blood Pressure 131/62 01/11/19 04:00 O2 Sat by Pulse Oximetry (%) 100 01/10/19 22:00 Constitutional: Yes: No Distress, Calm Cardiovascular: Yes: Regular Rate and Rhythm, Murmur, S1, S2 Respiratory: Yes: Regular, CTA Bilaterally. No: Rales Gastrointestinal: Yes: Normal Bowel Sounds, Soft. No: Tenderness Edema: No Neurological: Yes: Alert, Oriented Labs: CBC, BMP 01/11/19 05:00 01/11/19 05:00 INR, PTT INR 3.75 (0.83-1.09) H 01/11/19 05:00 Problem List - Problems (1) Elevation of cardiac enzymes Code(s): R74.8 - ABNORMAL LEVELS OF OTHER SERUM ENZYMES (2) Mechanical heart valve present Code(s): Z95.2 - PRESENCE OF PROSTHETIC HEART VALVE (3) Anemia Code(s): D64.9 - ANEMIA, UNSPECIFIED Qualifiers: Anemia type: unspecified type Qualified Code(s): D64.9 - Anemia, unspecified (4) Fall Code(s): W19.XXXA - UNSPECIFIED FALL, INITIAL ENCOUNTER (5) Atrial fibrillation Code(s): I48.91 - UNSPECIFIED ATRIAL FIBRILLATION Qualifiers: Atrial fibrillation type: chronic Qualified Code(s): I48.2 - Chronic atrial fibrillation (6) Syncope Code(s): R55 - SYNCOPE AND COLLAPSE Qualifiers: Syncope type: unspecified Qualified Code(s): R55 - Syncope and collapse Assessment/Plan Admitted to monitor bed Cardio consult, appreciated Serial CE -negative S/p PRBC Tx (one unit); H/H is trending down, again; stool for occult blood is pending; Iron studies are suggestive of anemia of chronic disease; pt with recent admission to [facility] for Hb of 5 (unclear cause of anemia) and s/p PRBC Tx (2 or 3 units). Heme consult. to Tx PRBC again. Supratherapeutic INR today. No warfarin. INR:to keep w/i 2.5 to 3.5 range (for a person with mechanical valve); to f/u INR Pt's condition was reviewed with her nurses AM labs.
--- NOTE | 2019-01-11 10:45 | PN ---
Progress Note (short form) - Note Progress Note: s: no chest pain, palps, dizziness, dyspnea Current Medications Buspirone HCl (Buspar -) 5 mg PO BID [facility] Last Admin: 01/11/19 09:43 Dose: 5 mg Docusate Sodium (Colace -) 100 mg PO DAILY [facility] Last Admin: 01/11/19 09:43 Dose: 100 mg Folic Acid (Folic Acid -) 1 mg PO DAILY [facility] Last Admin: 01/11/19 09:43 Dose: 1 mg Furosemide (Lasix Injection -) 40 mg IVPUSH BID@0600,1400 [facility] Last Admin: 01/11/19 06:24 Dose: 40 mg Metoprolol Succinate (Toprol Xl -) 50 mg PO BID [facility] Last Admin: 01/11/19 09:43 Dose: 50 mg Ranitidine HCl (Zantac -) 150 mg PO DAILY [facility] Last Admin: 01/11/19 09:43 Dose: 150 mg Senna (Senna -) 2 tab PO HS [facility] Last Admin: 01/10/19 22:05 Dose: 2 tab Vital Signs Period Temp Pulse Resp BP Sys/Vergara Pulse Ox Last 24 Hr 97.5 F-97.7 F 73-82 15-18 96-131/51-63 100-100 Constitutional: Yes: Well Nourished, No Distress, Calm Cardiovascular: Yes: Pulse Irregular ([facility] S2), S1, S2. No: Gallop, Murmur Respiratory: Yes: Regular, Diminished (bases), Rales (bases bilaterally). No: Accessory Muscle Use Extremities: No: Cold Edema: No Neurological: Yes: Alert, Oriented Psychiatric: No: Agitated no jaundice, diaphoresis Assessment/Plan EKG afib, no ischemic changes CXR: stephie pleural effusions, + congestive changes echo 12/2018 tds, EF 45-50% mildly reduced LV function, RV not well visualized, LA/RA severely dilated, mech MVR/AVR well seated, mild MR, mild AR tele: AF, good HR. artifact fall - patient denies syncope, dizziness--fall mechanical in nature - on AC as outpt, CT head here no bleed acute HF exacerbation - BNP >9000, JVD on exam with congestive changes on CXR - echo mildly reduced LV function with stable MVR/AVR function - on torsemide 20 mg daily outpatient - sob improving, Cr stable, continue lasix 40 mg IV BID elevated trop - indeterminate range, no ischemic changes on EKG - unlikely ACS h/o mechanical MVR, AVR - goal INR 2.5-3.5 - cont coumadin - cont UFH gtt until INR therapeutic - echo shows stable valve function, outpatient follow up afib - cont coumadin, metoprolol, rate stable anemia: - counts stable here, no baseline data available HLD - cont statin
--- NOTE | 2019-01-11 17:07 | CONS ---
DATE OF CONSULTATION: 01/11/2019 HISTORY OF PRESENT ILLNESS: This is an 83-year-old female being seen for evaluation of anemia. Patient initially admitted to [facility] on January 08. Patient provides a history of several weeks earlier having been admitted to [facility] where she received 3 units of packed cells. She presented with hematocrit of 25% which on repeat was 24% and has received 2 units of packed cells. WBC is normal. Platelet count is normal. Differential count is normal. Patient denies epistaxis, hematuria, melena, or hematochezia. The patient states that several years ago she had a colonoscopy and she is uncertain if she has had a prior EGD. SOCIAL HISTORY: The patient has never been . No children. No industrial exposures or intoxicants. No smoking. No drinking. FAMILY HISTORY: Includes mother with history of cancer of questionable type, sister with stroke. No history of anemia provided. PAST MEDICAL HISTORY: No history of hypertension, prior SD, stroke, hepatitis, gout, thyroid disease, kidney disease, hypercholesterolemia. PAST SURGICAL HISTORY: In 1997, the patient underwent a microvalve replacement and an aortic valve replacement and has been on Coumadin since. She does have a history of rheumatic heart disease. Patient also with history of tonsillectomy at a young age. MEDICATION: Patient's admitting medications included BuSpar 5 mg b.i.d., Colace 100, iron 325, folic acid 1, metoprolol 50 b.i.d., multivitamins with minerals, 5 weekly, Zantac 150, senna daily, torsemide 20, Coumadin based upon INR. Upon admission, she was subtherapeutic. ALLERGIES: Includes AMOXICILLIN, CODEINE, DARVON, DIOVAN, and DAIRY. REVIEW OF SYSTEMS: No headaches, no diplopia, no epistaxis, no dysphagia, no chest pain, shortness of breath, no nausea, vomiting, diarrhea, constipation, melena. No dysuria, hematuria. No vaginal bleeding. No back pain. No lower extremity edema or pains. CURRENT PHYSICAL EXAMINATION: Vital Signs: Blood pressure 116/53, pulse 84, respiratory 16, afebrile. HEENT: ADRIANA, EOM intact. Oropharynx unremarkable. Tongue papillated. Neck: Supple. No thyromegaly. No cervical supraclavicular or axillary nodes. Back: There is kyphosis. Lungs: Diminished breath sounds bilaterally. Cardiac: Regular rhythm, prosthetic aortic and right mitral valve. Breast: No dominant masses. Abdomen: Soft without organomegaly. Extremities: No significant edema. LABORATORY: On admission, hemoglobin 8, hematocrit 25.6, currently 23.4, normal indices, normal white count, normal platelet count. Sodium 141, potassium 3.8, chloride 96, CO2 of 43, BUN 34, creatinine 0.9, iron 33, TIBC 327, 286, AST 31, ALT 20, alkaline phosphatase 99, protein 5, albumin 2.6, folate greater than 2200, B12 of 513. IMPRESSION: An 83-year-old with anemia, previously several weeks earlier 3 packed cells, now currently 2 packed cells. Rapid requirement of blood suggests possibility of gastrointestinal bleeding. In view of valvular heart disease, hemolytic component need be excluded. Will review smears to look for schistocytes. Stool guaiacs to be obtained as well. Will also consider flow cytometry if nonrevealing. Currently it appears that patient has a picture compatible with chronic disease, anemia. Cannot exclude component of iron deficiency as well. Rapid fall in hemoglobin, hematocrit also suggests some component of GI bleeding or hemolytic component cannot be excluded. Thank you. STEPHENIE ROCHE M.D. ONUR/[id number]
[2019-01-11] MEDS: SENNOSIDES 8.6MG TABLET (FP) PO SCH (22:04)
[2019-01-12 06:21] LABS: HEMATOCRIT 27.3 % (32.4-45.2); HEMOGLOBIN 8.9 GM/dL (10.7-15.3); MCH 29.3 pg (25.7-33.7); MCHC 32.6 g/dl (32.0-36.0); MEAN CELL VOLUME 89.8 fl (80-96); MEAN PLT VOLUME 7.7 fl (7.5-11.1); PLATELET COUNT 166 K/MM3 (134-434); RBC 3.04 M/mm3 (3.60-5.2); RDW 21.8 % (11.6-15.6); WHITE BLOOD COUNT 4.7 K/mm3 (4.0-10.0)
[2019-01-12 06:34] LABS: INR 2.95 (0.83-1.09); PROTHROMBIN TIME (PATIENT) 35.2 SEC (9.7-13.0)
[2019-01-12] MEDS: FUROSEMIDE 40 MG/4 ML INJECTABLE VIAL IVPUSH SCH ×2 (06:45→13:38)
[2019-01-12 06:52] LABS: ALBUMIN 2.6 g/dl (3.4-5.0); BILIRUBIN,TOTAL 0.6 mg/dL (0.2-1); BLOOD UREA NITROGEN 33.2 mg/dL (7-18); CALCIUM 7.9 mg/dL (8.5-10.1); CREATININE 0.8 mg/dL (0.55-1.3); POTASSIUM 3.8 mmol/L (3.5-5.1)
[2019-01-12] MEDS: busPIRone HCL 5 MG TABLET PO SCH ×2 (09:42→21:08)
[2019-01-12] MEDS: RANITIDINE HCL 150 MG TABLET (FP) PO SCH (09:42)
[2019-01-12] MEDS: FOLIC ACID 1 MG TABLET (FP) PO SCH (09:42)
[2019-01-12] MEDS: DOCUSATE SODIUM 100 MG CAPSULE (FP) PO SCH (09:42)
--- NOTE | 2019-01-12 11:22 | PN ---
Progress Note (short form) - Note Progress Note: s: no chest pain, palps, dizziness. sob improving Current Medications Generic Name Dose Route Start Last Admin Trade Name Srinivas PRN Reason Stop Dose Admin Buspirone HCl 5 mg 01/08/19 22:00 01/12/19 09:42 Buspar - PO 5 mg BID KRIS Administration Docusate Sodium 100 mg 01/08/19 14:45 01/12/19 09:42 Colace - PO 100 mg DAILY [facility] Administration Folic Acid 1 mg 01/08/19 14:45 01/12/19 09:42 Folic Acid - PO 1 mg DAILY [facility] Administration Furosemide 40 mg 01/10/19 16:00 01/12/19 06:45 Lasix Injection - IVPUSH 40 mg BID@0600,1400 [facility] Administration Metoprolol Succinate 50 mg 01/08/19 12:00 01/12/19 09:42 Toprol Xl - PO 50 mg BID [facility] Administration Ranitidine HCl 150 mg 01/08/19 14:45 01/12/19 09:42 Zantac - PO 150 mg DAILY [facility] Administration Senna 2 tab 01/08/19 22:00 01/11/19 22:04 Senna - PO 2 tab HS [facility] Administration Warfarin Sodium 2.5 mg 01/12/19 18:00 Coumadin - PO 01/12/19 18:01 ONCE@1800 ONE Vital Signs Period Temp Pulse Resp BP Sys/Vergara Pulse Ox Last 24 Hr 98.2 F-98.4 F 67-88 16-22 86-134/53-77 96 Constitutional: Yes: Well Nourished, No Distress, Calm Cardiovascular: Yes: Pulse Irregular ([facility] S2), S1, S2. No: Gallop, Murmur Respiratory: Yes: Regular, Diminished (bases), Rales (bases bilaterally). No: Accessory Muscle Use Extremities: No: Cold Edema: No Neurological: Yes: Alert, Oriented Psychiatric: No: Agitated no jaundice, diaphoresis CBC, BMP 01/12/19 05:20 01/12/19 05:20 Assessment/Plan EKG afib, no ischemic changes CXR: stephie pleural effusions, + congestive changes echo 12/2018 tds, EF 45-50% mildly reduced LV function, RV not well visualized, LA/RA severely dilated, [facility] MVR/AVR well seated, mild MR, mild AR tele: AF, good HR fall - patient denies syncope, dizziness--fall mechanical in nature - on AC as outpt, CT head here no bleed acute HF exacerbation - BNP >9000, JVD on exam with congestive changes on CXR - echo mildly reduced LV function with stable MVR/AVR function - on torsemide 20 mg daily outpatient - sob improving, Cr stable, continue lasix 40 mg IV BID elevated trop - indeterminate range, no ischemic changes on EKG - unlikely ACS h/o mechanical MVR, AVR - goal INR 2.5-3.5 - cont coumadin - cont UFH gtt until INR therapeutic - echo shows stable valve function, outpatient follow up afib - cont coumadin, metoprolol, rate stable anemia: - counts stable here, no baseline data available HLD - cont statin
[2019-01-12] MEDS: IRON SUCROSE INJECTION 200 MG in SODIUM CHLORIDE 90 ML IVPB SCH (13:38)
--- NOTE | 2019-01-12 15:36 | PN ---
Progress Note (short form) - Note Progress Note: Hematology and oncology follow up Subjective: Patient seen and examined at bedside. found oob to chair. Patient has no new complaints. ROS: negative except for HPI Objective: Vital Signs Temperature 98.3 F 01/12/19 14:00 Pulse Rate 84 01/12/19 14:00 Respiratory Rate 14 01/12/19 14:00 Blood Pressure 104/61 01/12/19 14:00 O2 Sat by Pulse Oximetry (%) 96 01/12/19 09:00 PE: Gen: well appearing, awake alert in NAD while OOB to chair Lungs: clear to auscultation b/l down to the bases Heart: regular rate and rhythm, s1, s2 heard. no murmurs, gallops, rubs Abdomen: soft, nontender, non distended, bowel sounds heard CBC, BMP 01/12/19 05:20 01/12/19 05:20 Assessment & plan The patient is an 83 yo F w/ PMH HTN, afib s/p mechanical MVR and AVR (>20 years ago) on coumadin and 3L NC O2 at baseline who presented s/p fall and head trauma. She was found to be anemic. #anemia -Hb 8.9 today -monitor cbc, maintain transfusion threshold <8 -Iron saturation low on recent iron studies -will order Venofer 200mg IVPB q48h
[2019-01-12] MEDS ORDERED: WARFARIN NA 2.5 MG TABLET (FP) PO ONE (18:00)
--- NOTE | 2019-01-12 19:36 | PN ---
Progress Note, Physician History of Present Illness: Pt w/o dizziness, SOB, CP, palpitations, abd pain, motor weakness, no sensory deficit. - Current Medication List Current Medications: Active Medications Buspirone HCl (Buspar -) 5 mg PO BID [facility] Last Admin: 01/12/19 09:42 Dose: 5 mg Docusate Sodium (Colace -) 100 mg PO DAILY [facility] Last Admin: 01/12/19 09:42 Dose: 100 mg Folic Acid (Folic Acid -) 1 mg PO DAILY [facility] Last Admin: 01/12/19 09:42 Dose: 1 mg Furosemide (Lasix Injection -) 40 mg IVPUSH BID@0600,1400 [facility] Last Admin: 01/12/19 13:38 Dose: 40 mg Iron Sucrose 200 mg/ Sodium (Chloride) 100 mls @ 100 mls/hr IVPB Q48H [facility] Stop: 01/17/19 12:14 Last Admin: 01/12/19 13:38 Dose: 100 mls/hr Metoprolol Succinate (Toprol Xl -) 50 mg PO BID [facility] Last Admin: 01/12/19 09:42 Dose: 50 mg Ranitidine HCl (Zantac -) 150 mg PO DAILY [facility] Last Admin: 01/12/19 09:42 Dose: 150 mg Senna (Senna -) 2 tab PO HS [facility] Last Admin: 01/11/19 22:04 Dose: 2 tab - Objective Vital Signs: Vital Signs Temperature 98.0 F 01/12/19 18:00 Pulse Rate 78 01/12/19 18:00 Respiratory Rate 16 01/12/19 18:00 Blood Pressure 109/62 01/12/19 18:00 O2 Sat by Pulse Oximetry (%) 96 01/12/19 09:00 Constitutional: Yes: No Distress, Calm Cardiovascular: Yes: Pulse Irregular, S1, S2 Respiratory: Yes: Regular, Other (crackles at left > right base) Gastrointestinal: Yes: Normal Bowel Sounds, Soft, Tenderness Edema: No Neurological: Yes: Alert, Oriented Labs: CBC, BMP 01/12/19 05:20 01/12/19 05:20 INR, PTT INR 2.95 (0.83-1.09) H 01/12/19 05:20 Problem List - Problems (1) Elevation of cardiac enzymes Code(s): R74.8 - ABNORMAL LEVELS OF OTHER SERUM ENZYMES (2) Mechanical heart valve present Code(s): Z95.2 - PRESENCE OF PROSTHETIC HEART VALVE (3) Anemia Code(s): D64.9 - ANEMIA, UNSPECIFIED Qualifiers: Anemia type: unspecified type Qualified Code(s): D64.9 - Anemia, unspecified (4) Fall Code(s): W19.XXXA - UNSPECIFIED FALL, INITIAL ENCOUNTER (5) Atrial fibrillation Code(s): I48.91 - UNSPECIFIED ATRIAL FIBRILLATION Qualifiers: Atrial fibrillation type: chronic Qualified Code(s): I48.2 - Chronic atrial fibrillation (6) Syncope Code(s): R55 - SYNCOPE AND COLLAPSE Qualifiers: Syncope type: unspecified Qualified Code(s): R55 - Syncope and collapse Assessment/Plan Admitted to monitor bed Cardio, Heme consults are appreciated Serial CE -negative S/p PRBC Tx (two units); INR:to keep it w/i 2.5 to 3.5 range (for a person with mechanical valve); to f/ u INR AM labs.
[2019-01-12] MEDS: SENNOSIDES 8.6MG TABLET (FP) PO SCH (21:08)
[2019-01-13] MEDS: FUROSEMIDE 40 MG/4 ML INJECTABLE VIAL IVPUSH SCH ×2 (06:25→14:39)
[2019-01-13 07:33] LABS: BLOOD UREA NITROGEN 34.4 mg/dL (7-18); CALCIUM 7.8 mg/dL (8.5-10.1); HEMATOCRIT 26.1 % (32.4-45.2); HEMOGLOBIN 8.6 GM/dL (10.7-15.3); MCH 29.8 pg (25.7-33.7); MCHC 32.8 g/dl (32.0-36.0); MEAN CELL VOLUME 90.7 fl (80-96); MEAN PLT VOLUME 7.7 fl (7.5-11.1); PLATELET COUNT 190 K/MM3 (134-434); RBC 2.88 M/mm3 (3.60-5.2); RDW 21.3 % (11.6-15.6); WHITE BLOOD COUNT 4.2 K/mm3 (4.0-10.0)
[2019-01-13 07:39] LABS: INR 1.99 (0.83-1.09); PROTHROMBIN TIME (PATIENT) 23.6 SEC (9.7-13.0)
--- NOTE | 2019-01-13 09:01 | PN ---
Progress Note, Physician Chief Complaint: seen and examined TELE: controlled AF - Current Medication List Current Medications: Active Medications Buspirone HCl (Buspar -) 5 mg PO BID [facility] Last Admin: 01/12/19 21:08 Dose: 5 mg Docusate Sodium (Colace -) 100 mg PO DAILY [facility] Last Admin: 01/12/19 09:42 Dose: 100 mg Folic Acid (Folic Acid -) 1 mg PO DAILY [facility] Last Admin: 01/12/19 09:42 Dose: 1 mg Furosemide (Lasix Injection -) 40 mg IVPUSH BID@0600,1400 [facility] Last Admin: 01/13/19 06:25 Dose: 40 mg Iron Sucrose 200 mg/ Sodium (Chloride) 100 mls @ 100 mls/hr IVPB Q48H [facility] Stop: 01/17/19 12:14 Last Admin: 01/12/19 13:38 Dose: 100 mls/hr Metoprolol Succinate (Toprol Xl -) 50 mg PO BID [facility] Last Admin: 01/12/19 21:07 Dose: 50 mg Ranitidine HCl (Zantac -) 150 mg PO DAILY [facility] Last Admin: 01/12/19 09:42 Dose: 150 mg Senna (Senna -) 2 tab PO HS [facility] Last Admin: 01/12/19 21:08 Dose: 2 tab - Objective Vital Signs: Vital Signs Temperature 97.8 F 01/13/19 06:00 Pulse Rate 84 01/13/19 06:00 Respiratory Rate 17 01/13/19 08:14 Blood Pressure 108/60 01/13/19 06:00 O2 Sat by Pulse Oximetry (%) 97 01/13/19 08:14 Constitutional: Yes: No Distress, Calm Cardiovascular: Yes: Pulse Irregular Respiratory: Yes: Other (rales at bases.) Gastrointestinal: Yes: Soft Edema: No Neurological: Yes: Alert, Oriented Labs: CBC, BMP 01/13/19 05:33 01/13/19 05:33 INR, PTT INR 1.99 (0.83-1.09) H 01/13/19 05:33 Laboratory Tests 01/12/19 01/12/19 01/13/19 05:20 05:20 05:33 INR 2.95 H 1.99 H PTT (Actin FS) 41.0 H BUN 33.2 H Creatinine 0.8 09/27/19 05:33 INR PTT (Actin FS) BUN 34.4 H Creatinine 1.0 - ....Imaging EKG: Image Reviewed Assessment/Plan Assessment/Plan EKG afib, no ischemic changes CXR: stephie pleural effusions, + congestive changes echo 12/2018 tds, EF 45-50% mildly reduced LV function, RV not well visualized, LA/RA severely dilated, mech MVR/AVR well seated, mild MR, mild AR tele: AF, good HR fall - patient denies syncope, dizziness--fall mechanical in nature - on AC as outpt, CT head here no bleed acute HF exacerbation - BNP >9000, JVD on exam with congestive changes on CXR and persistent rales - echo mildly reduced LV function with stable MVR/AVR function - on torsemide 20 mg daily outpatient - sob improving, Cr stable, continue lasix 40 mg IV BID; daily weights elevated trop - indeterminate range, no ischemic changes on EKG - unlikely ACS h/o mechanical MVR, AVR - goal INR 2.5-3.5 - cont coumadin for INR 2.5-3.5 - cont UFH gtt until INR therapeutic - echo shows stable valve function, outpatient follow up afib - cont coumadin, metoprolol, rate stable anemia: - counts stable here, no baseline data available HLD - cont statin
[2019-01-13] MEDS ORDERED: HEPARIN NA (PORCINE) 5,000 UNITS/ML 1ML VIAL IVPUSH PRN ×2 (09:08)
[2019-01-13] MEDS: DOCUSATE SODIUM 100 MG CAPSULE (FP) PO SCH ×2 (10:00→10:06)
[2019-01-13] MEDS: HEPARIN INFUSION - 25,000 UNITS/500 ML INFUS.BAG IVPB SCH (10:05)
[2019-01-13] MEDS: RANITIDINE HCL 150 MG TABLET (FP) PO SCH (10:06)
[2019-01-13] MEDS: FOLIC ACID 1 MG TABLET (FP) PO SCH (10:06)
[2019-01-13] MEDS: busPIRone HCL 5 MG TABLET PO SCH ×2 (10:06→21:32)
--- NOTE | 2019-01-13 17:19 | PN ---
Progress Note (short form) - Note Progress Note: CONSULT dictated 83 year old with NC/NC anemia. Several weeks earlier received 3 units of packed cells at [facility]. Presented again after fall with Hct of 25% and has received two additional units of packed cells. Denies melena, hematochezia. Takes coumadin s/p AVR and MVR in 1997 ( history of RHD) FH - positive for mother with Ca --? type ROS - no headache , diplopia, epistasxis melena, hematochezia dysuria, hematuia . PE Last Vital Signs Temp Pulse Resp BP Pulse Ox 98.3 F 84 16 116/53 L 100 01/11/19 14:00 01/11/19 14:00 01/11/19 14:00 01/11/19 14:00 01/11/19 10:00 HEENT: ADRIANA, EOM Intact Oropharynx: No thrush, No mucositis Neck: Supple Nodes: Without adenopathy Breasts: Without masses Cor: RSR prosthetic heart sounds Lungs: Clear to P&A Abd: Soft, Normal bowel sounds, No organomegaly Ext:No significant edema, LE stasis Skin: stasis; Integument intact CBC, BMP 01/11/19 05:00 01/11/19 05:00 Current Medications Generic Name Dose Route Start Last Admin Trade Name Srinivas PRN Reason Stop Dose Admin Buspirone HCl 5 mg 01/08/19 22:00 01/11/19 09:43 Buspar - PO 5 mg BID KRIS Administration Docusate Sodium 100 mg 01/08/19 14:45 01/11/19 09:43 Colace - PO 100 mg DAILY KRIS Administration Folic Acid 1 mg 01/08/19 14:45 01/11/19 09:43 Folic Acid - PO 1 mg DAILY KRIS Administration Furosemide 40 mg 01/10/19 16:00 01/11/19 06:24 Lasix Injection - IVPUSH 40 mg BID@0600,1400 KRIS Administration Metoprolol Succinate 50 mg 01/08/19 12:00 01/11/19 09:43 Toprol Xl - PO 50 mg BID KRIS Administration Ranitidine HCl 150 mg 01/08/19 14:45 01/11/19 09:43 Zantac - PO 150 mg DAILY KRIS Administration Senna 2 tab 01/08/19 22:00 01/10/19 22:05 Senna - PO 2 tab HS KRIS Administration Impression: NC/NC anemia - Has required 3 units of packed cells for anemia several weeks earlier at [facility] and currently requiring additional 2 units. Iron studies with serum Fe++--->33 and TIBC of 327 and with saturation of 10% compatible with iron deficiency. Increased ferritin compatible with chronic disease . For patient to have such increased transfusion requirements consideration of bleeding or hemolysis in the setting of aortic and mitral valvular heart disease To review smear , obtain LDH, retic, haptoglobin and fractionate bilirubin. For stool guaics . For flow cytometry for MDS.
--- NOTE | 2019-01-13 17:22 | PN ---
Teaching Attending Note Name of Resident: Arnav Odonnell ATTENDING PHYSICIAN STATEMENT I saw and evaluated the patient. I reviewed the resident's note and discussed the case with the resident. I agree with the resident's findings and plan as documented. SUBJECTIVE: Patient seen and examined Iron studies compatible with blood loss anemia and chronic disease For venofer therapy. Consider GI assessment if medically feasible. OBJECTIVE: ASSESSMENT AND PLAN:
[2019-01-13] MEDS: WARFARIN NA 3 MG TABLET PO SCH (17:33)
[2019-01-13] MEDS: SENNOSIDES 8.6MG TABLET (FP) PO SCH (21:32)
--- NOTE | 2019-01-13 23:20 | PN ---
Progress Note, Physician History of Present Illness: Pt w/o dizziness, SOB, CP, palpitations, abd pain, motor weakness, no sensory deficit. Pt walked today w/o discomfort. - Current Medication List Current Medications: Active Medications Buspirone HCl (Buspar -) 5 mg PO BID [facility] Last Admin: 01/13/19 21:32 Dose: 5 mg Docusate Sodium (Colace -) 100 mg PO DAILY [facility] Last Admin: 01/13/19 10:00 Dose: Not Given Folic Acid (Folic Acid -) 1 mg PO DAILY [facility] Last Admin: 01/13/19 10:06 Dose: 1 mg Furosemide (Lasix Injection -) 40 mg IVPUSH BID@0600,1400 [facility] Last Admin: 01/13/19 14:39 Dose: 40 mg Heparin Sodium (Porcine) (Heparin -) 1,000 unit IVPUSH PRN PRN PRN Reason: Heparin Heparin Sodium (Porcine) (Heparin -) 5,000 unit IVPUSH PRN PRN PRN Reason: Heparin Iron Sucrose 200 mg/ Sodium (Chloride) 100 mls @ 100 mls/hr IVPB Q48H [facility] Stop: 01/17/19 12:14 Last Admin: 01/12/19 13:38 Dose: 100 mls/hr Heparin Sodium/Dextrose (Heparin Infusion -) 25,000 units in 500 mls @ 16 mls/ hr IVPB TITR [facility]; Protocol Last Titration: 01/13/19 17:47 Dose: 700 units/hr, 14 mls/hr Metoprolol Succinate (Toprol Xl -) 50 mg PO BID [facility] Last Admin: 01/13/19 21:32 Dose: 50 mg Ranitidine HCl (Zantac -) 150 mg PO DAILY [facility] Last Admin: 01/13/19 10:06 Dose: 150 mg Senna (Senna -) 2 tab PO HS [facility] Last Admin: 01/13/19 21:32 Dose: 2 tab Warfarin Sodium (Coumadin -) 3 mg PO DAILY@1800 [facility] Last Admin: 01/13/19 17:33 Dose: 3 mg - Objective Vital Signs: Vital Signs Temperature 97.8 F 01/13/19 19:00 Pulse Rate 76 01/13/19 21:40 Respiratory Rate 18 01/13/19 21:40 Blood Pressure 112/58 L 01/13/19 21:40 O2 Sat by Pulse Oximetry (%) 100 01/13/19 21:00 Constitutional: Yes: No Distress, Calm Cardiovascular: Yes: Regular Rate and Rhythm, S1, S2 Respiratory: Yes: Regular, CTA Bilaterally (except rales at bases) Gastrointestinal: Yes: Normal Bowel Sounds, Soft. No: Tenderness Edema: No Neurological: Yes: Alert, Oriented Labs: CBC, BMP 01/13/19 05:33 01/13/19 05:33 INR, PTT INR 1.99 (0.83-1.09) H 01/13/19 05:33 Problem List - Problems (1) Elevation of cardiac enzymes Code(s): R74.8 - ABNORMAL LEVELS OF OTHER SERUM ENZYMES (2) Mechanical heart valve present Code(s): Z95.2 - PRESENCE OF PROSTHETIC HEART VALVE (3) Anemia Code(s): D64.9 - ANEMIA, UNSPECIFIED Qualifiers: Anemia type: unspecified type Qualified Code(s): D64.9 - Anemia, unspecified (4) Fall Code(s): W19.XXXA - UNSPECIFIED FALL, INITIAL ENCOUNTER (5) Atrial fibrillation Code(s): I48.91 - UNSPECIFIED ATRIAL FIBRILLATION Qualifiers: Atrial fibrillation type: chronic Qualified Code(s): I48.2 - Chronic atrial fibrillation (6) Syncope Code(s): R55 - SYNCOPE AND COLLAPSE Qualifiers: Syncope type: unspecified Qualified Code(s): R55 - Syncope and collapse Assessment/Plan Admitted to monitor bed Cardio, Heme consults are appreciated Serial CE -negative S/p PRBC Tx (two units this admission; 3 units at [facility] earlier this month). GI consult INR is subtherapeutic; restart Heparin infusion INR:to keep it w/i 2.5 to 3.5 range (for a person with mechanical valve); to f/ u INR AM labs.
[2019-01-14] MEDS: HEPARIN INFUSION - 25,000 UNITS/500 ML INFUS.BAG IVPB SCH ×2 (00:27→09:15)
[2019-01-14] MEDS: FUROSEMIDE 40 MG/4 ML INJECTABLE VIAL IVPUSH SCH ×2 (06:23→14:47)
[2019-01-14 07:03] LABS: HEMATOCRIT 24.1 % (32.4-45.2); HEMOGLOBIN 7.9 GM/dL (10.7-15.3); MCH 29.8 pg (25.7-33.7); MCHC 32.9 g/dl (32.0-36.0); MEAN CELL VOLUME 90.5 fl (80-96); MEAN PLT VOLUME 7.8 fl (7.5-11.1); PLATELET COUNT 197 K/MM3 (134-434); RBC 2.66 M/mm3 (3.60-5.2); RDW 21.5 % (11.6-15.6); WHITE BLOOD COUNT 4.5 K/mm3 (4.0-10.0)
[2019-01-14 07:26] LABS: BLOOD UREA NITROGEN 32.8 mg/dL (7-18); CALCIUM 7.8 mg/dL (8.5-10.1); CREATININE 0.8 mg/dL (0.55-1.3); POTASSIUM 3.5 mmol/L (3.5-5.1)
[2019-01-14 07:27] LABS: INR 2.14 (0.83-1.09); PROTHROMBIN TIME (PATIENT) 25.5 SEC (9.7-13.0)
[2019-01-14 07:56] LABS: ACTIVATED PTT 139.5 SECONDS (25.2-36.5)
[2019-01-14] MEDS: busPIRone HCL 5 MG TABLET PO SCH ×2 (10:00→21:37)
[2019-01-14] MEDS: FOLIC ACID 1 MG TABLET (FP) PO SCH (10:00)
[2019-01-14] MEDS: RANITIDINE HCL 150 MG TABLET (FP) PO SCH (10:00)
[2019-01-14] MEDS: DOCUSATE SODIUM 100 MG CAPSULE (FP) PO SCH (10:01)
--- NOTE | 2019-01-14 10:57 | PN ---
Progress Note (short form) - Note Progress Note: s: no chest pain, palps, dizziness. sob improving Current Medications Generic Name Dose Route Start Last Admin Trade Name Solomonq PRN Reason Stop Dose Admin Buspirone HCl 5 mg 01/08/19 22:00 01/14/19 10:00 Buspar - PO 5 mg BID [facility]IS Administration Docusate Sodium 100 mg 01/08/19 14:45 01/14/19 10:01 Colace - PO 100 mg DAILY [facility]IS Administration Folic Acid 1 mg 01/08/19 14:45 01/14/19 10:00 Folic Acid - PO 1 mg DAILY [facility] Administration Furosemide 40 mg 01/10/19 16:00 01/14/19 06:23 Lasix Injection - IVPUSH 40 mg BID@0600,1400 [facility] Administration Heparin Sodium (Porcine) 1,000 unit 01/13/19 09:08 Heparin - IVPUSH PRN PRN Heparin Heparin Sodium (Porcine) 5,000 unit 01/13/19 09:08 Heparin - IVPUSH PRN PRN Heparin Iron Sucrose 200 mg/ Sodium 100 mls @ 100 mls/hr 01/12/19 12:15 01/12/19 13: 38 Chloride IVPB 01/17/19 12:14 100 mls/hr Q48H KRIS Administration Heparin Sodium/Dextrose 25,000 units in 500 mls @ 16 mls/hr 01/13/19 09:15 09:15 Heparin Infusion - IVPB 550 units/hr TITR KRIS 11 mls/hr Administration Protocol 800 UNITS/HR Metoprolol Succinate 50 mg 01/08/19 12:00 01/14/19 10:00 Toprol Xl - PO 50 mg BID KRIS Administration Ranitidine HCl 150 mg 01/08/19 14:45 01/14/19 10:00 Zantac - PO 150 mg DAILY [facility] Administration Senna 2 tab 01/08/19 22:00 01/13/19 21:32 Senna - PO 2 tab HS [facility]IS Administration Warfarin Sodium 3 mg 01/13/19 18:00 01/13/19 17:33 Coumadin - PO 3 mg DAILY@1800 KRIS Administration Vital Signs Period Temp Pulse Resp BP Sys/Vergara Pulse Ox Last 24 Hr 97.8 F-98.1 F 69-82 17-20 99-127/55-67 98-100 Constitutional: Yes: Well Nourished, No Distress, Calm Cardiovascular: Yes: Pulse Irregular ([facility] S[facility]), S1, S2. No: Gallop, Murmur Respiratory: Yes: Regular, Diminished (bases), Rales (bases bilaterally). No: Accessory Muscle Use Extremities: No: Cold Edema: No Neurological: Yes: Alert, Oriented Psychiatric: No: Agitated no jaundice, diaphoresis CBC, BMP 01/14/19 06:20 01/14/19 06:20 Assessment/Plan EKG afib, no ischemic changes CXR: stephie pleural effusions, + congestive changes echo 12/2018 tds, EF 45-50% mildly reduced LV function, RV not well visualized, LA/RA severely dilated, mech MVR/AVR well seated, mild MR, mild AR tele: AF, good HR fall - patient denies syncope, dizziness--fall mechanical in nature - on AC as outpt, CT head here no bleed acute diastolic HF exacerbation - BNP >9000, JVD on exam with congestive changes on CXR - echo mildly reduced LV function with stable MVR/AVR function - on torsemide 20 mg daily outpatient - sob improving, Cr stable, continue lasix 40 mg IV BID, can likely change to po lasix soon elevated trop - indeterminate range, no ischemic changes on EKG - unlikely ACS h/o mechanical MVR, AVR - goal INR 2.5-3.5 - cont coumadin - cont UFH gtt until INR therapeutic - echo shows stable valve function, outpatient follow up afib - cont coumadin, metoprolol, rate stable anemia: - counts stable here, no baseline data available HLD - cont statin
[2019-01-14] MEDS: IRON SUCROSE INJECTION 200 MG in SODIUM CHLORIDE 90 ML IVPB SCH (12:16)
--- NOTE | 2019-01-14 14:22 | PN ---
Progress Note, Physician History of Present Illness: Pt w/o dizziness, SOB, CP, palpitations, abd pain, no blood in stool or urine. Pt walked again today. - Current Medication List Current Medications: Active Medications Buspirone HCl (Buspar -) 5 mg PO BID [facility] Last Admin: 01/14/19 10:00 Dose: 5 mg Docusate Sodium (Colace -) 100 mg PO DAILY [facility] Last Admin: 01/14/19 10:01 Dose: 100 mg Folic Acid (Folic Acid -) 1 mg PO DAILY [facility] Last Admin: 01/14/19 10:00 Dose: 1 mg Furosemide (Lasix Injection -) 40 mg IVPUSH BID@0600,1400 [facility] Last Admin: 01/14/19 06:23 Dose: 40 mg Heparin Sodium (Porcine) (Heparin -) 1,000 unit IVPUSH PRN PRN PRN Reason: Heparin Heparin Sodium (Porcine) (Heparin -) 5,000 unit IVPUSH PRN PRN PRN Reason: Heparin Iron Sucrose 200 mg/ Sodium (Chloride) 100 mls @ 100 mls/hr IVPB Q48H [facility] Stop: 01/17/19 12:14 Last Admin: 01/14/19 12:16 Dose: 100 mls/hr Heparin Sodium/Dextrose (Heparin Infusion -) 25,000 units in 500 mls @ 16 mls/ hr IVPB TITR [facility]; Protocol Last Admin: 01/14/19 09:15 Dose: 550 units/hr, 11 mls/hr Metoprolol Succinate (Toprol Xl -) 50 mg PO BID [facility] Last Admin: 01/14/19 10:00 Dose: 50 mg Ranitidine HCl (Zantac -) 150 mg PO DAILY [facility] Last Admin: 01/14/19 10:00 Dose: 150 mg Senna (Senna -) 2 tab PO HS [facility] Last Admin: 01/13/19 21:32 Dose: 2 tab Warfarin Sodium (Coumadin -) 3 mg PO DAILY@1800 [facility] Last Admin: 01/13/19 17:33 Dose: 3 mg - Objective Vital Signs: Vital Signs Temperature 97.9 F 01/14/19 04:00 Pulse Rate 69 01/14/19 08:00 Respiratory Rate 20 01/14/19 08:00 Blood Pressure 105/59 L 01/14/19 08:00 O2 Sat by Pulse Oximetry (%) 98 01/14/19 10:00 Constitutional: Yes: No Distress, Calm Cardiovascular: Yes: Regular Rate and Rhythm, S1, S2 Respiratory: Yes: Regular, CTA Bilaterally. No: Rales Gastrointestinal: Yes: Normal Bowel Sounds, Soft. No: Tenderness Edema: No Neurological: Yes: Alert, Oriented Labs: CBC, BMP 01/14/19 06:20 01/14/19 06:20 INR, PTT INR 2.14 (0.83-1.09) H 01/14/19 06:20 Problem List - Problems (1) Elevation of cardiac enzymes Code(s): R74.8 - ABNORMAL LEVELS OF OTHER SERUM ENZYMES (2) Mechanical heart valve present Code(s): Z95.2 - PRESENCE OF PROSTHETIC HEART VALVE (3) Anemia Code(s): D64.9 - ANEMIA, UNSPECIFIED Qualifiers: Anemia type: unspecified type Qualified Code(s): D64.9 - Anemia, unspecified (4) Fall Code(s): W19.XXXA - UNSPECIFIED FALL, INITIAL ENCOUNTER (5) Atrial fibrillation Code(s): I48.91 - UNSPECIFIED ATRIAL FIBRILLATION Qualifiers: Atrial fibrillation type: chronic Qualified Code(s): I48.2 - Chronic atrial fibrillation (6) Syncope Code(s): R55 - SYNCOPE AND COLLAPSE Qualifiers: Syncope type: unspecified Qualified Code(s): R55 - Syncope and collapse Assessment/Plan Admitted to monitor bed Cardio, Heme consults are appreciated Serial CE -negative S/p PRBC Tx (two units this admission; 3 units at [facility] earlier this month). H/H is trending down; pt might need agin PRBC Tx GI consult INR is subtherapeutic; continue Heparin infusion INR:to keep it w/i 2.5 to 3.5 range (for a person with mechanical valve); to f/ u INR AM labs.
[2019-01-14] MEDS: WARFARIN NA 3 MG TABLET PO SCH (17:21)
--- NOTE | 2019-01-14 18:11 | CONS ---
DATE OF CONSULTATION: 01/14/2019 GASTROINTESTINAL CONSULTATION HISTORY OF PRESENT ILLNESS: The patient is an 83-year-old female with a past medical history of hypertension, atrial fibrillation and mechanical bowel replacement on Coumadin who presented to the hospital with head trauma after a fall. Apparently, at 6 p.m. today at the [facility] facility, she stood up from a seated position after eating dinner and her legs gave way. She then fell, hitting the lateral aspect of her left eye orbit. She was therefore sent to the emergency room for further evaluation. During the course of her hospitalization, she was noted to be anemic. As per the patient, she states she had an endoscopy and colonoscopy done many years ago at [facility]. She currently denies noticing any melena, hematochezia, abdominal pain, nausea, vomiting or hematemesis. PAST MEDICAL HISTORY: These are as listed in the HPI. PAST SURGICAL HISTORY: Valve replacement; ovarian cyst removal; ruptured disk repair. SOCIAL HISTORY: She does not smoke, drink or use drugs. FAMILY HISTORY: Noncontributory. ALLERGIES: AUGMENTIN, DARVON, DIOVAN AND DAIRY PRODUCTS. HOME MEDICATIONS: Aspirin, Lasix, metoprolol, pantoprazole and warfarin. REVIEW OF SYSTEMS: As per the HPI. PHYSICAL EXAMINATION: Vital Signs: Temperature 98, pulse 70, blood pressure 100/67, respiratory rate 12, oxygen saturation 98% on room air. General: The patient is in no acute distress. HEENT: Anicteric sclerae. Cardiovascular: S1, S2. Regular rate and rhythm. Lungs: Bilaterally clear to auscultation. Abdomen: Soft and nontender. Extremities: No edema. LABS: White blood cell count was 4.5, hemoglobin 7.9, hematocrit 24. During her hospitalization, her hemoglobin has been between 7 and 8. MCV 90, platelet count 197, INR 2.14, sodium 135, potassium 3.5, BUN 32, creatinine 0.8, glucose 84. Urine with 1+ leukocyte esterase. Stool for occult blood was positive. INR on admission was 2.56. On 01/11/2019, it was 3.75 - supratherapeutic. The patient had a CT scan of the head which revealed atrophy but no gross evidence of focal intracranial lesion or hemorrhage. There is mild left periorbital soft tissue swelling but no fracture. CT scan of the cervical spine without intravenous contrast revealed hyperextension of the cervical spine but no gross fractures. IMPRESSION: Normocytic anemia. Fecal occult blood testing is positive in the setting of anticoagulation with aspirin and Coumadin therapy. There is no sign of an overt GI bleed at this time but she may have peptic ulcer disease and may be oozing in the setting of a mildly supratherapeutic INR during her hospitalization. Other etiologies such as adenocarcinoma, angoiectasias and colonic polyps will also need to be excluded. RECOMMENDATIONS: 1. Trend hemoglobin and hematocrit q. 12 while hospitalized. 2. Continue her on Protonix 40 mg p.o. daily. 3. Her diet can be advanced as tolerated. 4. The patient would benefit from at least an upper endoscopy to exclude peptic ulcer disease. However, her anticoagulation will need to be stopped for the procedure. She will need cardiac risk stratification considering her extensive history of valvular atrial fibrillation. She would also benefit from a colonoscopy. 5. Monitor her INR daily and keep it within a therapeutic range for the time being. We will follow this patient. DO LÓPEZ MASON/[id number]
[2019-01-14] MEDS: SENNOSIDES 8.6MG TABLET (FP) PO SCH (21:37)
[2019-01-15] MEDS: HEPARIN INFUSION - 25,000 UNITS/500 ML INFUS.BAG IVPB SCH ×2 (01:42→09:31)
[2019-01-15] MEDS: FUROSEMIDE 40 MG/4 ML INJECTABLE VIAL IVPUSH SCH (06:44)
[2019-01-15 07:28] LABS: HEMATOCRIT 24.1 % (32.4-45.2); HEMOGLOBIN 7.9 GM/dL (10.7-15.3); MCH 29.8 pg (25.7-33.7); MCHC 32.7 g/dl (32.0-36.0); MEAN PLT VOLUME 7.6 fl (7.5-11.1); PLATELET COUNT 223 K/MM3 (134-434); RBC 2.65 M/mm3 (3.60-5.2); RDW 21.1 % (11.6-15.6)
[2019-01-15 07:41] LABS: INR 2.87 (0.83-1.09); PROTHROMBIN TIME (PATIENT) 34.2 SEC (9.7-13.0)
--- NOTE | 2019-01-15 07:42 | PN.GI ---
GI Progress Note Subjective: no melena / brbr / abd pain / n/v - pt states she is feeling well. - Objective Vital Signs: Vital Signs Temperature 97.8 F 01/15/19 05:52 Pulse Rate 72 01/15/19 05:52 Respiratory Rate 20 01/15/19 05:52 Blood Pressure 105/55 L 01/15/19 05:52 O2 Sat by Pulse Oximetry (%) 98 01/14/19 22:00 Constitutional: Well Nourished, No Distress, Calm Eyes: Yes: WNL HENT: Yes: WNL Neck: Yes: WNL Cardiovascular: Yes: WNL, Regular Rate and Rhythm Respiratory: Yes: WNL, Regular, CTA Bilaterally Gastrointestinal Inspection: Yes: WNL ...Auscultate: Yes: Normoactive Bowel Sounds Extremities: Yes: WNL Edema: Yes Labs: CBC, BMP 01/15/19 06:01 INR, PTT INR 2.87 (0.83-1.09) H 01/15/19 06:01 Problem List - Problems (1) Anemia Assessment/Plan: h/h noted - no sign of active GI bleed c/w PPI therapy diet as tolerated considering she has MVR - she should be optimized from a cardiovascular perspective and risk stratified for egd by cardiology prior to holding anticoagulation. Rec holding off for now considering she is on intravenous lasix. Code(s): D64.9 - ANEMIA, UNSPECIFIED Qualifiers: Anemia type: unspecified type Qualified Code(s): D64.9 - Anemia, unspecified (2) Atrial fibrillation Code(s): I48.91 - UNSPECIFIED ATRIAL FIBRILLATION Qualifiers: Atrial fibrillation type: chronic Qualified Code(s): I48.2 - Chronic atrial fibrillation (3) Elevation of cardiac enzymes Code(s): R74.8 - ABNORMAL LEVELS OF OTHER SERUM ENZYMES (4) Mechanical heart valve present Code(s): Z95.2 - PRESENCE OF PROSTHETIC HEART VALVE (5) Syncope Code(s): R55 - SYNCOPE AND COLLAPSE Qualifiers: Syncope type: unspecified Qualified Code(s): R55 - Syncope and collapse
[2019-01-15 07:44] LABS: ACTIVATED PTT 65.6 SECONDS (25.2-36.5)
[2019-01-15 07:46] LABS: BLOOD UREA NITROGEN 29.8 mg/dL (7-18); CREATININE 1.1 mg/dL (0.55-1.3); POTASSIUM 3.7 mmol/L (3.5-5.1)
[2019-01-15] MEDS: busPIRone HCL 5 MG TABLET PO SCH ×2 (09:31→21:25)
[2019-01-15] MEDS: DOCUSATE SODIUM 100 MG CAPSULE (FP) PO SCH (09:31)
[2019-01-15] MEDS: FOLIC ACID 1 MG TABLET (FP) PO SCH (09:31)
[2019-01-15] MEDS: RANITIDINE HCL 150 MG TABLET (FP) PO SCH (09:31)
--- NOTE | 2019-01-15 10:52 | PN ---
Progress Note (short form) - Note Progress Note: s: no chest pain, palps, dizziness. sob resolved. Current Medications Generic Name Dose Route Start Last Admin Trade Name Srinivas PRN Reason Stop Dose Admin Buspirone HCl 5 mg 01/08/19 22:00 01/15/19 09:31 Buspar - PO 5 mg BID KRIS Administration Docusate Sodium 100 mg 01/08/19 14:45 01/15/19 09:31 Colace - PO 100 mg DAILY KRIS Administration Folic Acid 1 mg 01/08/19 14:45 01/15/19 09:31 Folic Acid - PO 1 mg DAILY KRIS Administration Furosemide 40 mg 01/15/19 14:00 Lasix - PO BID@0600,1400 KRIS Iron Sucrose 200 mg/ Sodium 100 mls @ 100 mls/hr 01/12/19 12:15 01/14/19 12: 16 Chloride IVPB 01/17/19 12:14 100 mls/hr Q48H KRIS Administration Metoprolol Succinate 50 mg 01/08/19 12:00 01/15/19 09:31 Toprol Xl - PO 50 mg BID KRIS Administration Ranitidine HCl 150 mg 01/08/19 14:45 01/15/19 09:31 Zantac - PO 150 mg DAILY KRIS Administration Senna 2 tab 01/08/19 22:00 01/14/19 21:37 Senna - PO 2 tab HS KRIS Administration Warfarin Sodium 3 mg 01/13/19 18:00 01/14/19 17:21 Coumadin - PO 3 mg DAILY@1800 KRIS Administration Vital Signs Period Temp Pulse Resp BP Sys/Vergara Pulse Ox Last 24 Hr 97.8 F-98.6 F 70-85 20-20 100-110/54-67 98-98 Constitutional: Yes: Well Nourished, No Distress, Calm Cardiovascular: Yes: Pulse Irregular (mech S2), S1, S2. No: Gallop, Murmur Respiratory: ctabl nl eff No: Accessory Muscle Use Extremities: No: Cold Edema: No Neurological: Yes: Alert, Oriented Psychiatric: No: Agitated no jaundice, diaphoresis CBC, BMP 01/15/19 06:01 01/15/19 06:01 Assessment/Plan EKG afib, no ischemic changes CXR: stephie pleural effusions, + congestive changes echo 12/2018 tds, EF 45-50% mildly reduced LV function, RV not well visualized, LA/RA severely dilated, mech MVR/AVR well seated, mild MR, mild AR tele: AF, good HR fall - patient denies syncope, dizziness--fall mechanical in nature - on AC as outpt, CT head here no bleed acute diastolic HF exacerbation - BNP >9000, JVD on exam with congestive changes on CXR - echo mildly reduced LV function with stable MVR/AVR function - vol status improved with iv lasix. will change to po lasix 40 bid now. elevated trop - indeterminate range, no ischemic changes on EKG - unlikely ACS h/o mechanical MVR, AVR - goal INR 2.5-3.5 - cont coumadin - will stop hep gtt now, inr therapeutic - echo shows stable valve function, outpatient follow up afib - cont coumadin, metoprolol, rate stable anemia: - counts stable here, no baseline data available HLD - cont statin
[2019-01-15] MEDS: FUROSEMIDE 40 MG TABLET (FP) PO SCH (13:37)
--- NOTE | 2019-01-15 14:43 | PN ---
Progress Note, Physician Chief Complaint: OOB to chair feels well no new c/o - Current Medication List Current Medications: Active Medications Buspirone HCl (Buspar -) 5 mg PO BID [facility] Last Admin: 01/15/19 09:31 Dose: 5 mg Docusate Sodium (Colace -) 100 mg PO DAILY [facility] Last Admin: 01/15/19 09:31 Dose: 100 mg Folic Acid (Folic Acid -) 1 mg PO DAILY [facility] Last Admin: 01/15/19 09:31 Dose: 1 mg Furosemide (Lasix -) 40 mg PO BID@0600,1400 [facility] Last Admin: 01/15/19 13:37 Dose: 40 mg Iron Sucrose 200 mg/ Sodium (Chloride) 100 mls @ 100 mls/hr IVPB Q48H [facility] Stop: 01/17/19 12:14 Last Admin: 01/14/19 12:16 Dose: 100 mls/hr Metoprolol Succinate (Toprol Xl -) 50 mg PO BID [facility] Last Admin: 01/15/19 09:31 Dose: 50 mg Ranitidine HCl (Zantac -) 150 mg PO DAILY [facility] Last Admin: 01/15/19 09:31 Dose: 150 mg Senna (Senna -) 2 tab PO HS [facility] Last Admin: 01/14/19 21:37 Dose: 2 tab Warfarin Sodium (Coumadin -) 3 mg PO DAILY@1800 [facility] Last Admin: 01/14/19 17:21 Dose: 3 mg - Objective Vital Signs: Vital Signs Temperature 97.8 F 01/15/19 05:52 Pulse Rate 79 01/15/19 12:00 Respiratory Rate 20 01/15/19 12:00 Blood Pressure 115/56 L 01/15/19 12:00 O2 Sat by Pulse Oximetry (%) 98 01/15/19 09:04 Constitutional: Yes: No Distress, Calm Eyes: Yes: Conjunctiva Clear HENT: Yes: Atraumatic Neck: Yes: Supple Cardiovascular: Yes: Murmur. No: Regular Rate and Rhythm Respiratory: Yes: Diminished Gastrointestinal: Yes: Soft. No: Tenderness Musculoskeletal: No: Joint Swelling Extremities: No: Cold, Cool Edema: No Integumentary: Yes: Venous Stasis Changes Neurological: Yes: WNL, Alert, Oriented ...Motor Strength: WNL Psychiatric: Yes: WNL, Alert, Oriented. No: Agitated, Suicidal Ideation Labs: CBC, BMP 01/15/19 06:01 01/15/19 06:01 INR, PTT INR 2.87 (0.83-1.09) H 01/15/19 06:01 Assessment/Plan Leena Oliva is a 83yo F h/o HTN, a fib, valve replacement (20yrs ago) on coumadin and 3L NC baseline presenting with head trauma s/p fall. s/p fall at [facility] on [facility]; found to be anemic also admitted to telemetry s/p PRBC cardio and GI f/u EGD when cleared by cardio; hold AC? falls decubs PFX d/w pt and sister China Rojas at bedside
[2019-01-15] MEDS ORDERED: PT OWN MED DRAWER 7, Y5N ONE (16:49)
[2019-01-15] MEDS: WARFARIN NA 3 MG TABLET PO SCH (17:00)
[2019-01-15] MEDS: SENNOSIDES 8.6MG TABLET (FP) PO SCH (21:25)
[2019-01-16] MEDS: FUROSEMIDE 40 MG TABLET (FP) PO SCH ×2 (05:42→14:09)
[2019-01-16 06:37] LABS: BASO % 1.1 % (0-2.0); EOS % 2.2 % (0-4.5); HEMOGLOBIN 7.8 GM/dL (10.7-15.3); LYMPH % 10.4 % (8-40); MCH 30.1 pg (25.7-33.7); MCHC 32.5 g/dl (32.0-36.0); MEAN CELL VOLUME 92.4 fl (80-96); MEAN PLT VOLUME 7.7 fl (7.5-11.1); MONO % 12.5 % (3.8-10.2); NEUT % 73.8 % (42.8-82.8); PLATELET COUNT 233 K/MM3 (134-434); RDW 21.7 % (11.6-15.6); WHITE BLOOD COUNT 4.5 K/mm3 (4.0-10.0)
[2019-01-16 06:53] LABS: ALBUMIN 2.8 g/dl (3.4-5.0); BILIRUBIN,TOTAL 0.4 mg/dL (0.2-1); BLOOD UREA NITROGEN 34.3 mg/dL (7-18); CALCIUM 8.2 mg/dL (8.5-10.1); CREATININE 1.2 mg/dL (0.55-1.3); POTASSIUM 3.6 mmol/L (3.5-5.1); TOT PROT 5.3 g/dl (6.4-8.2)
[2019-01-16 07:01] LABS: INR 2.96 (0.83-1.09); PROTHROMBIN TIME (PATIENT) 35.3 SEC (9.7-13.0)
[2019-01-16] MEDS: RANITIDINE HCL 150 MG TABLET (FP) PO SCH (09:23)
[2019-01-16] MEDS: DOCUSATE SODIUM 100 MG CAPSULE (FP) PO SCH (09:23)
[2019-01-16] MEDS: busPIRone HCL 5 MG TABLET PO SCH ×2 (09:23→21:37)
[2019-01-16] MEDS: FOLIC ACID 1 MG TABLET (FP) PO SCH (09:23)
[2019-01-16 10:26] LABS: ANISOCYTOSIS 2+; MACROCYTOSIS 0; PLATELET ESTIMATE NORMAL
--- NOTE | 2019-01-16 10:29 | PN ---
Progress Note (short form) - Note Progress Note: s: no chest pain, palps, dizziness. sob resolved. Current Medications Generic Name Dose Route Start Last Admin Trade Name Srinivas PRN Reason Stop Dose Admin Buspirone HCl 5 mg 01/08/19 22:00 01/16/19 09:23 Buspar - PO 5 mg BID KRIS Administration Docusate Sodium 100 mg 01/08/19 14:45 01/16/19 09:23 Colace - PO 100 mg DAILY KRIS Administration Folic Acid 1 mg 01/08/19 14:45 01/16/19 09:23 Folic Acid - PO 1 mg DAILY KRIS Administration Furosemide 40 mg 01/15/19 14:00 01/16/19 05:42 Lasix - PO 40 mg BID@0600,1400 KRIS Administration Iron Sucrose 200 mg/ Sodium 100 mls @ 100 mls/hr 01/12/19 12:15 01/14/19 12: 16 Chloride IVPB 01/17/19 12:14 100 mls/hr Q48H KRIS Administration Metoprolol Succinate 50 mg 01/08/19 12:00 01/16/19 09:22 Toprol Xl - PO 50 mg BID KRIS Administration Ranitidine HCl 150 mg 01/08/19 14:45 01/16/19 09:23 Zantac - PO 150 mg DAILY KRIS Administration Senna 2 tab 01/08/19 22:00 01/15/19 21:25 Senna - PO 2 tab HS KRIS Administration Warfarin Sodium 3 mg 01/13/19 18:00 01/15/19 17:00 Coumadin - PO 3 mg DAILY@1800 KRIS Administration Vital Signs Period Temp Pulse Resp BP Sys/Vergara Pulse Ox Last 24 Hr 98.0 F 74-89 17-20 85-117/51-57 100-100 Constitutional: Yes: Well Nourished, No Distress, Calm Cardiovascular: Yes: Pulse Irregular (mech S2), S1, S2. No: Gallop, Murmur Respiratory: ctabl nl eff No: Accessory Muscle Use Extremities: No: Cold Edema: No Neurological: Yes: Alert, Oriented Psychiatric: No: Agitated no jaundice, diaphoresis CBC, BMP 01/16/19 06:05 01/16/19 06:05 Assessment/Plan EKG afib, no ischemic changes CXR: stephie pleural effusions, + congestive changes echo 12/2018 tds, EF 45-50% mildly reduced LV function, RV not well visualized, LA/RA severely dilated, [facility]/AVR well seated, mild MR, mild AR tele: AF, good HR fall - patient denies syncope, dizziness--fall mechanical in nature - on AC as outpt, CT head here no bleed acute diastolic HF exacerbation - BNP >9000, JVD on exam with congestive changes on CXR - echo mildly reduced LV function with stable MVR/AVR function - vol status improved with iv lasix. will change to po lasix 40 bid now. elevated trop - indeterminate range, no ischemic changes on EKG - unlikely ACS h/o mechanical MVR, AVR - goal INR 2.5-3.5 - cont coumadin - echo shows stable valve function, outpatient follow up afib - cont coumadin, metoprolol, rate stable anemia: - counts stable here - GI has seen pt, considering EGD. No cardiac contraindications to EGD/FOC if needed. Would have to hold coumadin and start hep gtt when inr<2.5 given that she has mechanical valve. Then hep gtt can be held briefly for procedure to minimize time off AC. HLD - cont statin
[2019-01-16] MEDS: IRON SUCROSE INJECTION 200 MG in SODIUM CHLORIDE 90 ML IVPB SCH (11:15)
--- NOTE | 2019-01-16 16:18 | PN ---
Progress Note (short form) - Note Progress Note: GI f/u No new events Reports colonoscopy just a few years ago at [facility] that was normal Remote h/o EGD Cardiology states no contraindication to endoscopy, need to wait until INR <2 and bridge with heparin gtt Vital Signs Temp 98.0 F 01/15/19 20:00 Pulse 79 01/16/19 14:14 Resp 16 01/16/19 14:14 BP 101/49 L 01/16/19 14:14 Pulse Ox 100 01/16/19 09:04 NAD abdomen soft NT mildly distended, healed scar CBC, BMP 01/16/19 06:05 01/16/19 06:05 INR, PTT INR 2.96 (0.83-1.09) H 01/16/19 06:05 Impression: FOBT+ anemia. Have discussed with pt to attempt to get colonoscopy report from [facility] - has a sister who is a nurse who may be able to obtain Based on review, would decide if she needs just EGD vs EGD and colonoscopy Hold AC, can start heparin gtt per cardiology when INR drifts down Will follow
[2019-01-16] MEDS ORDERED: PT OWN MED DRAWER 7, Y5N ONE (16:50)
--- NOTE | 2019-01-16 17:38 | PATH ---
Surgical Pathology Report Patient Name: AMADOR MARTIN [facility]. Rec. #: [id number] /Age/Gender: 1935 (Age: 83) / F Account: [id number] Location: EMERGENCY ROOM Taken: 01/12/2019 Received: 01/12/2019 Reported: 01/16/2019 Physicians: Isai Spivey M.D. Specimen(s) Received PERIPHERAL BLOOD Clinical History Anemia, rule out MDS Final Diagnosis FLOW CYTOMETRY performed and interpreted at [place], [place] ([id number]) shows the following: INTERPRETATION: Relative granulocytosis with no discrete atypical flow cytometric findings seen. PHENOTYPE: Granulocytes are increased but show no detectable aberrant marker expression. Blasts are not detected. Lymphocytes are proportionally decreased and include polyclonal B cells, NK cells and immunophenotypically normal CD4+ and CD8+ T cells in normal proportions. No evidence of a clonal lymphoid expansion. Cytomorphology: Smears from flow sample show no increase in myeloblasts or atypical lymphocytes. See [facility] report ([id number]) for additional details. MYELODYSPLASIA FISH PANEL performed and interpreted at [place], [place] ([id number]) shows the following: INTERPRETATION: No evidence of deletion 5q or monosomy 5 is present. No evidence of deletion 7q or monosomy 7 is present. No evidence of trisomy 8 (+8) is present. No evidence of deletion 13q14.2 is present. No evidence of rearrangement of 11q23. No evidence of a deletion of the p53 (17p13) locus. No evidence of deletion 20q12 is present See [facility] report ([id number]) for additional details. Electronically Signed Dora Dickinson M.D. Addendum Reported: 01/24/2019 Addendum Diagnosis CYTOGENETIC KARYOTYPE ANALYSIS performed and interpreted at [facility] shows the following: RESULTS: Tissue Culture Failure INTERPRETATION: This unstimulated peripheral blood specimen did not produce any analyzable metaphase cells and, therefore, chromosome analysis is not possible. A bone marrow aspirate, when clinically appropriate, is recommended. See [facility] report for additional details ([id number]). Dora Laureana Joel-New M.D. Gross Description Received labelled with the patient's name are 4 green top tubes of peripheral blood which are forwarded to [facility] for ancillary testing. MLSZ/01/12/2019 sanrena/01/12/2019
[2019-01-16] MEDS: WARFARIN NA 3 MG TABLET PO SCH (18:15)
--- NOTE | 2019-01-16 19:17 | PN ---
Progress Note, Physician History of Present Illness: Pt w/o dizziness, SOB, CP, palpitations, abd pain, no blood in stool or urine. Pt walked again today but feeling weak - Current Medication List Current Medications: Active Medications Buspirone HCl (Buspar -) 5 mg PO BID [facility] Last Admin: 01/16/19 09:23 Dose: 5 mg Docusate Sodium (Colace -) 100 mg PO DAILY [facility] Last Admin: 01/16/19 09:23 Dose: 100 mg Folic Acid (Folic Acid -) 1 mg PO DAILY [facility] Last Admin: 01/16/19 09:23 Dose: 1 mg Furosemide (Lasix -) 40 mg PO BID@0600,1400 [facility] Last Admin: 01/16/19 14:09 Dose: Not Given Iron Sucrose 200 mg/ Sodium (Chloride) 100 mls @ 100 mls/hr IVPB Q48H [facility] Stop: 01/17/19 12:14 Last Admin: 01/16/19 11:15 Dose: 100 mls/hr Metoprolol Succinate (Toprol Xl -) 50 mg PO BID [facility] Last Admin: 01/16/19 09:22 Dose: 50 mg Ranitidine HCl (Zantac -) 150 mg PO DAILY [facility] Last Admin: 01/16/19 09:23 Dose: 150 mg Senna (Senna -) 2 tab PO HS [facility] Last Admin: 01/15/19 21:25 Dose: 2 tab Warfarin Sodium (Coumadin -) 3 mg PO DAILY@1800 [facility] Last Admin: 01/16/19 18:15 Dose: 3 mg - Objective Vital Signs: Vital Signs Temperature 98 F 01/16/19 17:06 Pulse Rate 84 01/16/19 17:06 Respiratory Rate 20 01/16/19 17:06 Blood Pressure 131/63 01/16/19 17:06 O2 Sat by Pulse Oximetry (%) 100 01/16/19 09:04 Constitutional: Yes: No Distress Cardiovascular: Yes: Murmur, S1, S2 Respiratory: Yes: Regular, CTA Bilaterally. No: Wheezes Gastrointestinal: Yes: Normal Bowel Sounds, Soft, Tenderness Edema: No Neurological: Yes: Alert, Oriented Labs: CBC, BMP 01/16/19 06:05 01/16/19 06:05 INR, PTT INR 2.96 (0.83-1.09) H 01/16/19 06:05 Problem List - Problems (1) Elevation of cardiac enzymes Code(s): R74.8 - ABNORMAL LEVELS OF OTHER SERUM ENZYMES (2) Mechanical heart valve present Code(s): Z95.2 - PRESENCE OF PROSTHETIC HEART VALVE (3) Anemia Code(s): D64.9 - ANEMIA, UNSPECIFIED Qualifiers: Anemia type: unspecified type Qualified Code(s): D64.9 - Anemia, unspecified (4) Fall Code(s): W19.XXXA - UNSPECIFIED FALL, INITIAL ENCOUNTER (5) Atrial fibrillation Code(s): I48.91 - UNSPECIFIED ATRIAL FIBRILLATION Qualifiers: Atrial fibrillation type: chronic Qualified Code(s): I48.2 - Chronic atrial fibrillation (6) Syncope Code(s): R55 - SYNCOPE AND COLLAPSE Qualifiers: Syncope type: unspecified Qualified Code(s): R55 - Syncope and collapse Assessment/Plan Admitted to monitor bed Cardio, GI consults are appreciated Pt want to have EGD, colonoscopy. To f/u with GI. to hold Coumadin planning intervention AM labs
[2019-01-16] MEDS: SENNOSIDES 8.6MG TABLET (FP) PO SCH (21:36)
[2019-01-17] MEDS: FUROSEMIDE 40 MG TABLET (FP) PO SCH ×2 (05:41→14:18)
[2019-01-17 06:11] LABS: HEMATOCRIT 21.9 % (32.4-45.2); HEMOGLOBIN 7.1 GM/dL (10.7-15.3); MCH 30.2 pg (25.7-33.7); MCHC 32.5 g/dl (32.0-36.0); MEAN PLT VOLUME 7.3 fl (7.5-11.1); PLATELET COUNT 243 K/MM3 (134-434); RBC 2.36 M/mm3 (3.60-5.2); RDW 22.1 % (11.6-15.6); WHITE BLOOD COUNT 4.6 K/mm3 (4.0-10.0)
[2019-01-17 06:24] LABS: INR 3.34 (0.83-1.09); PROTHROMBIN TIME (PATIENT) 39.9 SEC (9.7-13.0)
[2019-01-17 06:27] LABS: ACTIVATED PTT 46.4 SECONDS (25.2-36.5)
[2019-01-17 06:34] LABS: BLOOD UREA NITROGEN 30.9 mg/dL (7-18); CALCIUM 7.9 mg/dL (8.5-10.1); POTASSIUM 3.8 mmol/L (3.5-5.1)
[2019-01-17] MEDS: busPIRone HCL 5 MG TABLET PO SCH ×2 (09:11→21:01)
[2019-01-17] MEDS: DOCUSATE SODIUM 100 MG CAPSULE (FP) PO SCH (09:11)
[2019-01-17] MEDS: FOLIC ACID 1 MG TABLET (FP) PO SCH (09:11)
[2019-01-17] MEDS: RANITIDINE HCL 150 MG TABLET (FP) PO SCH (09:11)
--- NOTE | 2019-01-17 10:31 | PN ---
Progress Note (short form) - Note Progress Note: s: no chest pain, palps, dizziness, sob Current Medications Buspirone HCl (Buspar -) 5 mg PO BID [facility] Last Admin: 01/17/19 09:11 Dose: 5 mg Docusate Sodium (Colace -) 100 mg PO DAILY [facility] Last Admin: 01/17/19 09:11 Dose: 100 mg Folic Acid (Folic Acid -) 1 mg PO DAILY [facility] Last Admin: 01/17/19 09:11 Dose: 1 mg Furosemide (Lasix -) 40 mg PO BID@0600,1400 [facility] Last Admin: 01/17/19 05:41 Dose: 40 mg Iron Sucrose 200 mg/ Sodium (Chloride) 100 mls @ 100 mls/hr IVPB Q48H [facility] Stop: 01/17/19 12:14 Last Admin: 01/16/19 11:15 Dose: 100 mls/hr Metoprolol Succinate (Toprol Xl -) 50 mg PO BID [facility] Last Admin: 01/17/19 09:11 Dose: 50 mg Ranitidine HCl (Zantac -) 150 mg PO DAILY [facility] Last Admin: 01/17/19 09:11 Dose: 150 mg Senna (Senna -) 2 tab PO HS [facility] Last Admin: 01/16/19 21:36 Dose: 2 tab Vital Signs Period Temp Pulse Resp BP Sys/Vergara Pulse Ox Last 24 Hr 97.7 F-98.3 F 74-88 16-25 101-131/49-72 100-100 Constitutional: Yes: Well Nourished, No Distress, Calm Cardiovascular: Yes: Pulse Irregular ([facility] S[facility]), S1, S2. No: Gallop, Murmur Respiratory: ctabl nl eff No: Accessory Muscle Use Extremities: No: Cold Edema: No Neurological: Yes: Alert, Oriented Psychiatric: No: Agitated no jaundice, diaphoresis Assessment/Plan EKG afib, no ischemic changes CXR: stephie pleural effusions, + congestive changes echo 12/2018 tds, EF 45-50% mildly reduced LV function, RV not well visualized, LA/RA severely dilated, mech MVR/AVR well seated, mild MR, mild AR tele: AF, good HR fall - patient denies syncope, dizziness--fall mechanical in nature - on AC as outpt, CT head here no bleed acute diastolic HF exacerbation - BNP >9000, JVD on exam with congestive changes on CXR - echo mildly reduced LV function with stable MVR/AVR function - vol status improved s/p iv lasix. -cont po lasix 40 bid elevated trop - indeterminate range, no ischemic changes on EKG - unlikely ACS h/o mechanical MVR, AVR - goal INR 2.5-3.5 - cont coumadin - echo shows stable valve function, outpatient follow up afib - cont coumadin, metoprolol, rate stable anemia: - counts stable here - GI has seen pt, planned EGD. No cardiac contraindications to EGD/FOC. - Would hold coumadin and start hep gtt when inr<2.5 given that she has mechanical valve. Then hep gtt can be held briefly for procedure to minimize time off AC. HLD - cont statin
--- NOTE | 2019-01-17 18:43 | PN.GI ---
GI Progress Note Subjective: GI NOte: Asked by Dr Upton to assume GI care for Sister. I have discussed EGD and colonoscopy in detail with Sister including informing her of the potential for such complications as perforation and hemorrhage. She was also made aware of the thromboembolic risks of interrupting warfarin even with a heparin bridge , particularly if these need to be held following a large polypectomy. She did have a polyp removed remotely by Dr Fatima. I also asked her whether or not she would want to have her DNR rescinded during these procedures and anesthesia. She gave an informed consent for the procedures but wishes to think about the DNR order a little more. She denies any overt bleeding. She denies a history of ulcers. She has been experiencing dyspepsia. Her Hb keep dropping. Her INR is currently supratherapeutic. 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 - Objective Vital Signs: Vital Signs Temperature 99.4 F 01/17/19 16:00 Pulse Rate 78 01/17/19 16:00 Respiratory Rate 25 H 01/17/19 16:00 Blood Pressure 127/76 01/17/19 16:00 O2 Sat by Pulse Oximetry (%) 100 01/17/19 10:00 Laboratory Tests 01/07/19 01/08/19 01/09/19 22:00 05:25 05:20 Hgb 8.1 L 7.7 L 8.1 L Retic Count INR BUN Creatinine Alkaline Phosphatase LD Total 01/09/19 01/11/19 01/12/19 05:20 05:00 05:20 Hgb 7.5 L Retic Count INR BUN 42.2 H Creatinine 1.0 Alkaline Phosphatase LD Total 252 H 01/12/19 01/13/19 01/14/19 05:20 05:33 06:20 Hgb 8.6 L 7.9 L Retic Count 3.23 H INR BUN Creatinine Alkaline Phosphatase LD Total 01/16/19 01/17/19 01/17/19 06:05 05:40 05:40 Hgb Retic Count INR 3.34 H BUN 30.9 H Creatinine 1.0 Alkaline Phosphatase 139 H LD Total Constitutional: Calm Eyes: Yes: Conjunctiva Clear HENT: Yes: Atraumatic Cardiovascular: Yes: Pulse Irregular, S1 (metallic), S2 (metallic), Other ( healed median sternotomy incision) Respiratory: Yes: CTA Bilaterally Gastrointestinal Inspection: Yes: Distention, Scars (healed vertical suprapubic incision) ...Auscultate: Yes: Hypoactive Bowel Sounds ...Palpate: Yes: Soft, Other (nontender) ...Percussion: Yes: Tympanitic Labs: CBC, BMP 01/17/19 05:40 01/17/19 05:40 INR, PTT INR 3.34 (0.83-1.09) H 01/17/19 05:40 Assessment/Plan Assessment: - Given her transfusion requiring anemia and occult GI bleeding and her lifelong need for warfarin panendoscopy has been advised to exclude a bleeding ulcer, neoplasm, vascular ectasias, GERD, recurrent polyp among other possibilities. Informed consent has been obtained for EGD and colonoscopy. Cardiology has cleared her cardiologically as per Dr Smith Plan: -- Withhold warfarin -- Daily INR -- Start IV heparin when needed -- Miralax BID -- Golytely prep on 01/19 for EGD and colonoscopy on 01/20 -- Antibiotic prophylaxis will be needed. Discussed the case with Dr Upton who will consult ID for this given the penicillin and other allergies Problem List - Problems (1) Anemia Code(s): D64.9 - ANEMIA, UNSPECIFIED Qualifiers: Anemia type: unspecified type Qualified Code(s): D64.9 - Anemia, unspecified (2) Occult blood in stools Code(s): R19.5 - OTHER FECAL ABNORMALITIES (3) Colon polyp Code(s): K63.5 - POLYP OF COLON (4) Rheumatic aortic valve disease, unspecified Code(s): I06.9 - RHEUMATIC AORTIC VALVE DISEASE, UNSPECIFIED (5) Rheumatic disease of mitral valve Code(s): I05.9 - RHEUMATIC MITRAL VALVE DISEASE, UNSPECIFIED (6) History of appendectomy Code(s): Z90.49 - ACQUIRED ABSENCE OF OTHER SPECIFIED PARTS OF DIGESTIVE TRACT (7) History of ovarian cystectomy Code(s): Z98.890 - OTHER SPECIFIED POSTPROCEDURAL STATES; Z87.42 - PERSONAL HISTORY OF OTH DISEASES OF THE FEMALE GENITAL TRACT (8) Family history of ovarian cancer Code(s): Z80.41 - FAMILY HISTORY OF MALIGNANT NEOPLASM OF OVARY (9) Atrial fibrillation Code(s): I48.91 - UNSPECIFIED ATRIAL FIBRILLATION Qualifiers: Atrial fibrillation type: chronic Qualified Code(s): I48.2 - Chronic atrial fibrillation (10) Mechanical heart valve present Code(s): Z95.2 - PRESENCE OF PROSTHETIC HEART VALVE (11) Syncope Code(s): R55 - SYNCOPE AND COLLAPSE Qualifiers: Syncope type: unspecified Qualified Code(s): R55 - Syncope and collapse
[2019-01-17] MEDS: POLYETHYLENE GLYCOL 3350 119 GM BTL PO SCH (21:01)
[2019-01-17] MEDS: SENNOSIDES 8.6MG TABLET (FP) PO SCH (21:01)
[2019-01-17] MEDS: PANTOPRAZOLE 40 MG TABLET (FP) PO SCH (21:01)
--- NOTE | 2019-01-17 22:13 | PN ---
Progress Note, Physician History of Present Illness: Pt w/o SOB, CP, palpitations, abd pain, no blood in stool or urine. Pt confirmed that wants to go for GI procedure. - Current Medication List Current Medications: Active Medications Bisacodyl (Dulcolax -) 20 mg PO ONCE ONE Stop: 01/19/19 18:01 Buspirone HCl (Buspar -) 5 mg PO BID [facility] Last Admin: 01/17/19 21:01 Dose: 5 mg Folic Acid (Folic Acid -) 1 mg PO DAILY [facility] Last Admin: 01/17/19 09:11 Dose: 1 mg Furosemide (Lasix -) 40 mg PO BID@0600,1400 [facility] Last Admin: 01/17/19 14:18 Dose: 40 mg Furosemide (Lasix -) 20 mg PO ONCE ONE Stop: 01/17/19 18:30 Metoprolol Succinate (Toprol Xl -) 50 mg PO BID [facility] Last Admin: 01/17/19 21:01 Dose: 50 mg Pantoprazole Sodium (Protonix -) 40 mg PO BID [facility] Last Admin: 01/17/19 21:01 Dose: 40 mg Polyethylene Glycol (Miralax (For Daily Use) -) 17 gm PO BID [facility] Last Admin: 01/17/19 21:01 Dose: 17 grams Polyethylene Glycol/Electrolytes (Golytely Solution -) 4,000 ml PO ONCE ONE Stop: 01/19/19 09:01 Senna (Senna -) 2 tab PO HS [facility] Last Admin: 01/17/19 21:01 Dose: 2 tab - Objective Vital Signs: Vital Signs Temperature 98.6 F 01/17/19 20:30 Pulse Rate 78 01/17/19 20:30 Respiratory Rate 23 H 01/17/19 20:30 Blood Pressure 110/56 L 01/17/19 20:30 O2 Sat by Pulse Oximetry (%) 100 01/17/19 20:55 Constitutional: Yes: No Distress, Calm Cardiovascular: Yes: Regular Rate and Rhythm, S1, S2 Respiratory: Yes: Regular, CTA Bilaterally, Other (crackles at bases) Gastrointestinal: Yes: Normal Bowel Sounds, Soft. No: Tenderness Edema: No Neurological: Yes: Alert, Oriented Labs: CBC, BMP 01/17/19 05:40 01/17/19 05:40 INR, PTT INR 3.34 (0.83-1.09) H 01/17/19 05:40 Problem List - Problems (1) Elevation of cardiac enzymes Code(s): R74.8 - ABNORMAL LEVELS OF OTHER SERUM ENZYMES (2) Mechanical heart valve present Code(s): Z95.2 - PRESENCE OF PROSTHETIC HEART VALVE (3) Anemia Code(s): D64.9 - ANEMIA, UNSPECIFIED Qualifiers: Anemia type: unspecified type Qualified Code(s): D64.9 - Anemia, unspecified (4) Fall Code(s): W19.XXXA - UNSPECIFIED FALL, INITIAL ENCOUNTER (5) Atrial fibrillation Code(s): I48.91 - UNSPECIFIED ATRIAL FIBRILLATION Qualifiers: Atrial fibrillation type: chronic Qualified Code(s): I48.2 - Chronic atrial fibrillation (6) Syncope Code(s): R55 - SYNCOPE AND COLLAPSE Qualifiers: Syncope type: unspecified Qualified Code(s): R55 - Syncope and collapse Assessment/Plan Admitted to monitor bed. H/H is low again, requiring PRBC Tx again today. Cardio, GI consults are appreciated Pt wants to have EGD, colonoscopy. To f/u with GI. Coumadin is on hold; to f/u INR; start Heparin drip when INR 2.5 or lower. AM labs Pt's care was reviewed with her nurse.
[2019-01-18] MEDS ORDERED: FUROSEMIDE 20 MG TABLET (FP) PO ONE (00:30)
[2019-01-18] MEDS: FUROSEMIDE 40 MG TABLET (FP) PO SCH ×2 (06:09→13:21)
[2019-01-18 06:31] LABS: HEMATOCRIT 30.6 % (32.4-45.2); HEMOGLOBIN 10.4 GM/dL (10.7-15.3); MCH 31.2 pg (25.7-33.7); MCHC 33.9 g/dl (32.0-36.0); MEAN PLT VOLUME 7.3 fl (7.5-11.1); PLATELET COUNT 231 K/MM3 (134-434); RBC 3.32 M/mm3 (3.60-5.2); RDW 18.1 % (11.6-15.6); WHITE BLOOD COUNT 4.5 K/mm3 (4.0-10.0)
[2019-01-18 07:02] LABS: BLOOD UREA NITROGEN 27.4 mg/dL (7-18); POTASSIUM 3.9 mmol/L (3.5-5.1)
[2019-01-18 09:01] LABS: INR 2.39 (0.83-1.09); PROTHROMBIN TIME (PATIENT) 28.4 SEC (9.7-13.0)
[2019-01-18] MEDS: FOLIC ACID 1 MG TABLET (FP) PO SCH (09:16)
[2019-01-18] MEDS: PANTOPRAZOLE 40 MG TABLET (FP) PO SCH ×2 (09:16→21:37)
[2019-01-18] MEDS: busPIRone HCL 5 MG TABLET PO SCH ×2 (09:16→21:37)
[2019-01-18] MEDS: POLYETHYLENE GLYCOL 3350 119 GM BTL PO SCH ×2 (09:29→21:37)
[2019-01-18] MEDS ORDERED: HEPARIN NA (PORCINE) 5,000 UNITS/ML 1ML VIAL IVPUSH PRN (10:00)
--- NOTE | 2019-01-18 10:02 | PN ---
Progress Note (short form) - Note Progress Note: s: no chest pain, palps, dizziness, sob Current Medications Bisacodyl (Dulcolax -) 20 mg PO ONCE ONE Stop: 01/19/19 18:01 Buspirone HCl (Buspar -) 5 mg PO BID [facility] Last Admin: 01/18/19 09:16 Dose: 5 mg Folic Acid (Folic Acid -) 1 mg PO DAILY [facility] Last Admin: 01/18/19 09:16 Dose: 1 mg Furosemide (Lasix -) 40 mg PO BID@0600,1400 [facility] Last Admin: 01/18/19 06:09 Dose: 40 mg Metoprolol Succinate (Toprol Xl -) 50 mg PO BID [facility] Last Admin: 01/18/19 09:17 Dose: 50 mg Pantoprazole Sodium (Protonix -) 40 mg PO BID [facility] Last Admin: 01/18/19 09:16 Dose: 40 mg Polyethylene Glycol (Miralax (For Daily Use) -) 17 gm PO BID [facility] Last Admin: 01/18/19 09:29 Dose: 17 grams Polyethylene Glycol/Electrolytes (Golytely Solution -) 4,000 ml PO ONCE ONE Stop: 01/19/19 09:01 Senna (Senna -) 2 tab PO HS [facility] Last Admin: 01/17/19 21:01 Dose: 2 tab Vital Signs Period Temp Pulse Resp BP Sys/Vergara Pulse Ox Last 24 Hr 97.5 F-99.4 F 70-80 19-25 109-130/56-76 97-100 Constitutional: Yes: Well Nourished, No Distress, Calm Cardiovascular: Yes: Pulse Irregular ([facility] S2), S1, S2. No: Gallop, Murmur Respiratory: ctabl nl eff No: Accessory Muscle Use Extremities: No: Cold Edema: No Neurological: Yes: Alert, Oriented Psychiatric: No: Agitated no jaundice, diaphoresis Assessment/Plan EKG afib, no ischemic changes CXR: stephie pleural effusions, + congestive changes echo 12/2018 tds, EF 45-50% mildly reduced LV function, RV not well visualized, LA/RA severely dilated, [facility] MVR/AVR well seated, mild MR, mild AR tele: AF, good HR fall - patient denies syncope, dizziness--fall mechanical in nature - on AC as outpt, CT head here no bleed acute diastolic HF exacerbation - BNP >9000, JVD on exam with congestive changes on CXR - echo mildly reduced LV function with stable MVR/AVR function - vol status improved s/p iv lasix. -cont po lasix 40 bid elevated trop - indeterminate range, no ischemic changes on EKG - unlikely ACS h/o mechanical MVR, AVR - goal INR 2.5-3.5 - INR <2.5 - start heparin gtt - echo shows stable valve function, outpatient follow up afib - cont coumadin, metoprolol, rate stable anemia: - counts stable here - GI has seen pt, planned EGD. No cardiac contraindications to EGD/FOC. - holding coumadin, INR <2.5 - start hep gtt given that she has mechanical valve. hep gtt can be held briefly for procedure to minimize time off AC. HLD - cont statin
[2019-01-18] MEDS ORDERED: PT OWN MED DRAWER 7, Y5N ONE (11:12)
[2019-01-18] MEDS: HEPARIN - 25,000 UNIT in SODIUM CHLORIDE 495 ML IV SCH (11:27)
--- NOTE | 2019-01-18 11:50 | PN.GI ---
GI Progress Note Subjective: GI NOte: Had a BM. INR falling. NO overt bleeding - Objective Vital Signs: Vital Signs Temperature 97.5 F L 01/18/19 08:08 Pulse Rate 80 01/18/19 08:08 Respiratory Rate 20 01/18/19 09:00 Blood Pressure 130/72 01/18/19 08:08 O2 Sat by Pulse Oximetry (%) 99 01/18/19 10:07 Laboratory Tests 01/17/19 01/17/19 01/18/19 05:40 05:40 05:50 Hgb 7.1 L 10.4 L INR 3.34 H BUN Creatinine 01/18/19 01/18/19 05:55 05:55 Hgb INR 2.39 H BUN 27.4 H Creatinine 1.0 Constitutional: Calm ...Auscultate: Yes: Normoactive Bowel Sounds ...Palpate: Yes: Soft, Other (nontender) Labs: CBC, BMP 01/18/19 05:50 01/18/19 05:55 INR, PTT INR 2.39 (0.83-1.09) H 01/18/19 05:55 Assessment/Plan Assessment: - Transfusion requiring anemia and occult GI bleeding, Need to exclude a bleeding ulcer, neoplasm, vascular ectasias, GERD, recurrent polyp among other possibilities. Plan: -- Withhold warfarin -- Daily INR -- Start IV heparin when needed -- Miralax BID -- Golytely prep on 01/19 for EGD and colonoscopy on 01/20 -- Await ID input re: antibiotic prophylaxis Problem List - Problems (1) Anemia Code(s): D64.9 - ANEMIA, UNSPECIFIED Qualifiers: Anemia type: unspecified type Qualified Code(s): D64.9 - Anemia, unspecified (2) Occult blood in stools Code(s): R19.5 - OTHER FECAL ABNORMALITIES (3) Colon polyp Code(s): K63.5 - POLYP OF COLON (4) Rheumatic aortic valve disease, unspecified Code(s): I06.9 - RHEUMATIC AORTIC VALVE DISEASE, UNSPECIFIED (5) Rheumatic disease of mitral valve Code(s): I05.9 - RHEUMATIC MITRAL VALVE DISEASE, UNSPECIFIED (6) History of appendectomy Code(s): Z90.49 - ACQUIRED ABSENCE OF OTHER SPECIFIED PARTS OF DIGESTIVE TRACT (7) History of ovarian cystectomy Code(s): Z98.890 - OTHER SPECIFIED POSTPROCEDURAL STATES; Z87.42 - PERSONAL HISTORY OF OTH DISEASES OF THE FEMALE GENITAL TRACT (8) Family history of ovarian cancer Code(s): Z80.41 - FAMILY HISTORY OF MALIGNANT NEOPLASM OF OVARY (9) Atrial fibrillation Code(s): I48.91 - UNSPECIFIED ATRIAL FIBRILLATION Qualifiers: Atrial fibrillation type: chronic (10) Mechanical heart valve present Code(s): Z95.2 - PRESENCE OF PROSTHETIC HEART VALVE (11) Syncope Code(s): R55 - SYNCOPE AND COLLAPSE Qualifiers: Syncope type: unspecified Qualified Code(s): R55 - Syncope and collapse
[2019-01-18] MEDS: SENNOSIDES 8.6MG TABLET (FP) PO SCH (21:37)
--- NOTE | 2019-01-18 23:41 | PN ---
Progress Note, Physician History of Present Illness: Pt w/o SOB, CP, palpitations, abd pain, no blood in stool or urine. - Current Medication List Current Medications: Active Medications Bisacodyl (Dulcolax -) 20 mg PO ONCE ONE Stop: 01/19/19 18:01 Buspirone HCl (Buspar -) 5 mg PO BID [facility] Last Admin: 01/18/19 21:37 Dose: 5 mg Folic Acid (Folic Acid -) 1 mg PO DAILY [facility] Last Admin: 01/18/19 09:16 Dose: 1 mg Furosemide (Lasix -) 40 mg PO BID@0600,1400 [facility] Last Admin: 01/18/19 13:21 Dose: 40 mg Heparin Sodium (Porcine) (Heparin -) 1,000 unit IVPUSH PRN PRN PRN Reason: Heparin Heparin Sodium (Porcine) (Heparin -) 5,000 unit IVPUSH PRN PRN PRN Reason: Heparin Heparin Sodium (Porcine) 25, (000 unit/ Sodium Chloride) 500 mls @ 20 mls/hr IV TITR [facility]; Protocol Last Titration: 01/18/19 18:40 Dose: 0 unit/hr, 0 mls/hr Metoprolol Succinate (Toprol Xl -) 50 mg PO BID [facility] Last Admin: 01/18/19 21:37 Dose: 50 mg Pantoprazole Sodium (Protonix -) 40 mg PO BID [facility] Last Admin: 01/18/19 21:37 Dose: 40 mg Polyethylene Glycol (Miralax (For Daily Use) -) 17 gm PO BID [facility] Last Admin: 01/18/19 21:37 Dose: 17 grams Polyethylene Glycol/Electrolytes (Golytely Solution -) 4,000 ml PO ONCE ONE Stop: 01/19/19 09:01 Senna (Senna -) 2 tab PO HS [facility] Last Admin: 01/18/19 21:37 Dose: 2 tab - Objective Vital Signs: Vital Signs Temperature 97.8 F 01/18/19 18:10 Pulse Rate 77 01/18/19 22:00 Respiratory Rate 21 H 01/18/19 22:00 Blood Pressure 134/65 01/18/19 22:00 O2 Sat by Pulse Oximetry (%) 95 01/18/19 21:00 Constitutional: Yes: No Distress, Calm Cardiovascular: Yes: Regular Rate and Rhythm, S1, S2 Respiratory: Yes: Regular, CTA Bilaterally (except crackles at both bases) Gastrointestinal: Yes: Normal Bowel Sounds, Soft, Tenderness Edema: No Neurological: Yes: Alert, Oriented Labs: CBC, BMP 01/18/19 05:50 01/18/19 05:55 INR, PTT INR 2.39 (0.83-1.09) H 01/18/19 05:55 Problem List - Problems (1) Elevation of cardiac enzymes Code(s): R74.8 - ABNORMAL LEVELS OF OTHER SERUM ENZYMES (2) Mechanical heart valve present Code(s): Z95.2 - PRESENCE OF PROSTHETIC HEART VALVE (3) Anemia Code(s): D64.9 - ANEMIA, UNSPECIFIED Qualifiers: Anemia type: unspecified type Qualified Code(s): D64.9 - Anemia, unspecified (4) Fall Code(s): W19.XXXA - UNSPECIFIED FALL, INITIAL ENCOUNTER (5) Atrial fibrillation Code(s): I48.91 - UNSPECIFIED ATRIAL FIBRILLATION Qualifiers: Atrial fibrillation type: chronic (6) Syncope Code(s): R55 - SYNCOPE AND COLLAPSE Qualifiers: Syncope type: unspecified Qualified Code(s): R55 - Syncope and collapse Assessment/Plan Admitted to monitor bed. H/H is low again, required PRBC Tx again; pt received a total of four units this admission Cardio, GI consults are appreciated Pt wants to have EGD, colonoscopy. To f/u with GI. Coumadin is on hold; to f/u INR; start Heparin drip when INR 2.5 or lower. AM labs
[2019-01-19] MEDS: FUROSEMIDE 40 MG TABLET (FP) PO SCH ×2 (06:05→14:43)
[2019-01-19 07:14] LABS: HEMATOCRIT 32.5 % (32.4-45.2); HEMOGLOBIN 10.8 GM/dL (10.7-15.3); MCH 31.1 pg (25.7-33.7); MCHC 33.4 g/dl (32.0-36.0); MEAN CELL VOLUME 93.2 fl (80-96); MEAN PLT VOLUME 7.2 fl (7.5-11.1); PLATELET COUNT 266 K/MM3 (134-434); RBC 3.49 M/mm3 (3.60-5.2); RDW 19.7 % (11.6-15.6); WHITE BLOOD COUNT 4.7 K/mm3 (4.0-10.0)
[2019-01-19 07:25] LABS: INR 1.33 (0.83-1.09); PROTHROMBIN TIME (PATIENT) 15.7 SEC (9.7-13.0)
[2019-01-19 07:28] LABS: ACTIVATED PTT 103.9 SECONDS (25.2-36.5)
--- NOTE | 2019-01-19 08:25 | PN ---
Progress Note, Physician Chief Complaint: fall History of Present Illness: no sob, orthopnea--laying nearly flat all night to sleep. no cp, palp, leg swelling no cigs - Current Medication List Current Medications: Active Medications Bisacodyl (Dulcolax -) 20 mg PO ONCE ONE Stop: 01/19/19 18:01 Buspirone HCl (Buspar -) 5 mg PO BID [facility] Last Admin: 01/18/19 21:37 Dose: 5 mg Folic Acid (Folic Acid -) 1 mg PO DAILY [facility] Last Admin: 01/18/19 09:16 Dose: 1 mg Furosemide (Lasix -) 40 mg PO BID@0600,1400 [facility] Last Admin: 01/19/19 06:05 Dose: 40 mg Heparin Sodium (Porcine) (Heparin -) 1,000 unit IVPUSH PRN PRN PRN Reason: Heparin Heparin Sodium (Porcine) (Heparin -) 5,000 unit IVPUSH PRN PRN PRN Reason: Heparin Heparin Sodium (Porcine) 25, (000 unit/ Sodium Chloride) 500 mls @ 20 mls/hr IV TITR [facility]; Protocol Last Titration: 01/18/19 21:50 Dose: 850 unit/hr, 17 mls/hr Metoprolol Succinate (Toprol Xl -) 50 mg PO BID [facility] Last Admin: 01/18/19 21:37 Dose: 50 mg Pantoprazole Sodium (Protonix -) 40 mg PO BID [facility] Last Admin: 01/18/19 21:37 Dose: 40 mg Polyethylene Glycol (Miralax (For Daily Use) -) 17 gm PO BID [facility] Last Admin: 01/18/19 21:37 Dose: 17 grams Polyethylene Glycol/Electrolytes (Golytely Solution -) 4,000 ml PO ONCE ONE Stop: 01/19/19 09:01 Senna (Senna -) 2 tab PO HS [facility] Last Admin: 01/18/19 21:37 Dose: 2 tab - Objective Vital Signs: Vital Signs Temperature 97.8 F 01/19/19 06:00 Pulse Rate 78 01/19/19 06:00 Respiratory Rate 20 01/19/19 06:00 Blood Pressure 142/81 01/19/19 06:00 O2 Sat by Pulse Oximetry (%) 95 01/18/19 21:00 Constitutional: Yes: No Distress, Calm Eyes: No: Sclera Icterus HENT: No: Nasal Congestion Cardiovascular: Yes: Pulse Irregular ([facility] S2 click), S1, S2, Other (PMI non diplaced). No: Gallop, Murmur Respiratory: Yes: Diminished (bases), Rales (L base). No: Accessory Muscle Use Gastrointestinal: Yes: Normal Bowel Sounds, Soft. No: Tenderness Musculoskeletal: Yes: Other (No kyphosis) Extremities: No: Cold, Cyanosis Edema: Yes (trace-1+ ankles) Integumentary: No: Jaundice Neurological: Yes: Alert, Oriented (x3) Psychiatric: No: Agitated Labs: CBC, BMP 01/19/19 06:32 INR, PTT INR 1.33 (0.83-1.09) H 01/19/19 06:32 Assessment/Plan EKG afib, no ischemic changes CXR: stephie pleural effusions, + congestive changes tele: AF, good HR. artifact CXR: stephie pleural effusions, + congestive changes echo 12/2018 tds, EF 45-50% mildly reduced LV function, RV not well visualized, LA/RA severely dilated, [facility] MVR/AVR well seated, mild MR, mild AR tele: AF, good HR fall - patient denies syncope, dizziness--fall mechanical in nature - CT head no bleed - on obligatory AC for [facility] heart valves - phys therapy acute diastolic HF exacerbation - BNP >9000, JVD on exam with congestive changes on CXR - echo mildly reduced LV function with stable MVR/AVR function - vol status improved s/p iv lasix. - effusions vs atx on exam--cont po lasix 40 bid. rpt CXR in AM elevated trop - indeterminate range, flat trend. no ischemic changes on EKG - no suspicion of ACS h/o mechanical MVR, AVR - goal INR 2.5-3.5 - INR <2.5 - bridging with heparin gtt - echo shows stable valve function, outpatient follow up afib - cont coumadin, metoprolol, rate stable anemia, preop CV eval: - counts stable here, transfused - GI has seen pt, planned EGD and FOC for w/u of occult GIB. - Revised CV Risk Index 1, unknown functional status. no signs/sx of active CHF or CAD s/p diuresis. at acceptable CV risk for procedure. - holding coumadin, INR <2.5 - start hep gtt given that she has mechanical valve. hep gtt can be held briefly for procedure to minimize time off AC. HLD - cont statin
[2019-01-19 08:30] LABS: BLOOD UREA NITROGEN 25.3 mg/dL (7-18); CALCIUM 8.1 mg/dL (8.5-10.1); POTASSIUM 4.1 mmol/L (3.5-5.1)
[2019-01-19] MEDS ORDERED: PEG 3350/NA SULF BICARB CL/KCL 4000 ML SOLN.RECON PO ONE (09:00)
[2019-01-19] MEDS: PANTOPRAZOLE 40 MG TABLET (FP) PO SCH ×2 (09:53→21:55)
[2019-01-19] MEDS: busPIRone HCL 5 MG TABLET PO SCH ×2 (09:53→21:55)
[2019-01-19] MEDS: FOLIC ACID 1 MG TABLET (FP) PO SCH (09:53)
[2019-01-19] MEDS: POLYETHYLENE GLYCOL 3350 119 GM BTL PO SCH ×2 (09:53→21:56)
[2019-01-19] MEDS ORDERED: BISACODYL 5 MG TABLET.DR (FP) PO ONE (18:00)
--- NOTE | 2019-01-19 19:19 | PN ---
Progress Note, Physician History of Present Illness: Pt w/o SOB, CP, palpitations, abd pain, no blood in stool or urine. Pt is getting prep for EGD/ colonoscopy - Current Medication List Current Medications: Active Medications Buspirone HCl (Buspar -) 5 mg PO BID [facility] Last Admin: 01/19/19 09:53 Dose: 5 mg Folic Acid (Folic Acid -) 1 mg PO DAILY [facility] Last Admin: 01/19/19 09:53 Dose: 1 mg Furosemide (Lasix -) 40 mg PO BID@0600,1400 [facility] Last Admin: 01/19/19 14:43 Dose: 40 mg Heparin Sodium (Porcine) (Heparin -) 1,000 unit IVPUSH PRN PRN PRN Reason: Heparin Heparin Sodium (Porcine) (Heparin -) 5,000 unit IVPUSH PRN PRN PRN Reason: Heparin Heparin Sodium (Porcine) 25, (000 unit/ Sodium Chloride) 500 mls @ 20 mls/hr IV TITR [facility]; Protocol Last Titration: 01/19/19 10:47 Dose: 700 unit/hr, 14 mls/hr Metoprolol Succinate (Toprol Xl -) 50 mg PO BID [facility] Last Admin: 01/19/19 09:53 Dose: 50 mg Pantoprazole Sodium (Protonix -) 40 mg PO BID [facility] Last Admin: 01/19/19 09:53 Dose: 40 mg Polyethylene Glycol (Miralax (For Daily Use) -) 17 gm PO BID [facility] Last Admin: 01/19/19 09:53 Dose: 17 grams Senna (Senna -) 2 tab PO HS [facility] Last Admin: 01/18/19 21:37 Dose: 2 tab - Objective Vital Signs: Vital Signs Temperature 97.9 F 01/19/19 17:40 Pulse Rate 74 01/19/19 17:40 Respiratory Rate 20 01/19/19 17:40 Blood Pressure 145/89 01/19/19 17:40 O2 Sat by Pulse Oximetry (%) 98 01/19/19 09:00 Constitutional: Yes: No Distress, Calm Cardiovascular: Yes: Regular Rate and Rhythm, S1, S2 Respiratory: Yes: Regular, CTA Bilaterally, Rales (crackles at left base) Gastrointestinal: Yes: Normal Bowel Sounds, Soft. No: Tenderness Edema: No Neurological: Yes: Alert, Oriented Labs: CBC, BMP 01/19/19 06:32 01/19/19 06:32 INR, PTT INR 1.33 (0.83-1.09) H 01/19/19 06:32 Problem List - Problems (1) Elevation of cardiac enzymes Code(s): R74.8 - ABNORMAL LEVELS OF OTHER SERUM ENZYMES (2) Mechanical heart valve present Code(s): Z95.2 - PRESENCE OF PROSTHETIC HEART VALVE (3) Anemia Code(s): D64.9 - ANEMIA, UNSPECIFIED Qualifiers: Anemia type: unspecified type Qualified Code(s): D64.9 - Anemia, unspecified (4) Fall Code(s): W19.XXXA - UNSPECIFIED FALL, INITIAL ENCOUNTER (5) Atrial fibrillation Code(s): I48.91 - UNSPECIFIED ATRIAL FIBRILLATION Qualifiers: Atrial fibrillation type: chronic (6) Syncope Code(s): R55 - SYNCOPE AND COLLAPSE Qualifiers: Syncope type: unspecified Qualified Code(s): R55 - Syncope and collapse Assessment/Plan Admitted to monitor bed. Pt required PRBC Tx (4 units this admission). Cardio, GI consults are appreciated Pt with mechanical valves, now on IV Heparin drip. For EGD and colonoscopy tomorrow AM labs
[2019-01-19] MEDS: SENNOSIDES 8.6MG TABLET (FP) PO SCH (21:55)
[2019-01-19] MEDS: HEPARIN - 25,000 UNIT in SODIUM CHLORIDE 495 ML IV SCH (21:56)
[2019-01-20 06:44] LABS: HEMATOCRIT 31.4 % (32.4-45.2); HEMOGLOBIN 10.6 GM/dL (10.7-15.3); MCH 31.5 pg (25.7-33.7); MCHC 33.6 g/dl (32.0-36.0); MEAN CELL VOLUME 93.6 fl (80-96); MEAN PLT VOLUME 7.2 fl (7.5-11.1); PLATELET COUNT 249 K/MM3 (134-434); RBC 3.36 M/mm3 (3.60-5.2); RDW 19.7 % (11.6-15.6); WHITE BLOOD COUNT 4.1 K/mm3 (4.0-10.0)
[2019-01-20] MEDS: FUROSEMIDE 40 MG TABLET (FP) PO SCH ×2 (06:47→14:24)
[2019-01-20 06:56] LABS: INR 1.04 (0.83-1.09); PROTHROMBIN TIME (PATIENT) 12.3 SEC (9.7-13.0)
[2019-01-20 07:08] LABS: BLOOD UREA NITROGEN 17.1 mg/dL (7-18); CALCIUM 7.8 mg/dL (8.5-10.1); CREATININE 0.8 mg/dL (0.55-1.3); POTASSIUM 3.3 mmol/L (3.5-5.1)
[2019-01-20 09:00] LABS: ACTIVATED PTT 73.7 SECONDS (25.2-36.5)
[2019-01-20] MEDS ORDERED: KCL 10 MEQ IVPB 10 MEQ/100 ML INFUS.BAG IVPB SCH (09:45)
[2019-01-20] MEDS: busPIRone HCL 5 MG TABLET PO SCH ×2 (09:49→21:45)
[2019-01-20] MEDS: FOLIC ACID 1 MG TABLET (FP) PO SCH (09:49)
[2019-01-20] MEDS: POLYETHYLENE GLYCOL 3350 119 GM BTL PO SCH ×2 (09:50→21:44)
[2019-01-20] MEDS: PANTOPRAZOLE 40 MG TABLET (FP) PO SCH ×2 (09:50→21:43)
--- NOTE | 2019-01-20 09:51 | PN ---
Progress Note, Physician Chief Complaint: comfortable TELE: AF History of Present Illness: no CP, SOB - Current Medication List Current Medications: Active Medications Buspirone HCl (Buspar -) 5 mg PO BID [facility] Last Admin: 01/20/19 09:49 Dose: Not Given Folic Acid (Folic Acid -) 1 mg PO DAILY [facility]S [facility] Last Admin: 01/20/19 09:49 Dose: Not Given Furosemide (Lasix -) 40 mg PO BID@0600,1400 [facility]S [facility] Last Admin: 01/20/19 06:47 Dose: Not Given Heparin Sodium (Porcine) (Heparin -) 1,000 unit IVPUSH PRN PRN PRN Reason: Heparin Heparin Sodium (Porcine) (Heparin -) 5,000 unit IVPUSH PRN PRN PRN Reason: Heparin Heparin Sodium (Porcine) 25, (000 unit/ Sodium Chloride) 500 mls @ 20 mls/hr IV TITR [facility]; Protocol Last Titration: 01/20/19 09:30 Dose: 650 unit/hr, 13 mls/hr Dextrose/Sodium Chloride (Dextrose 5%-Normal Saline+40 Meq Kcl -) 40 meq in 1, 000 mls @ 42 mls/hr IV ASDIR [facility] Potassium Chloride (Potassium Chloride 10 Meq Premix Ivpb -) 10 meq in 100 mls @ 100 mls/hr IVPB Q60M COUNTS [facility]CLUDE 234 BEDS AT [facility] Stop: 01/20/19 10:44 Metoprolol Succinate (Toprol Xl -) 50 mg PO BID [facility]S [facility] Last Admin: 01/19/19 21:55 Dose: 50 mg Pantoprazole Sodium (Protonix -) 40 mg PO BID [facility] Last Admin: 01/20/19 09:50 Dose: Not Given Polyethylene Glycol (Miralax (For Daily Use) -) 17 gm PO BID [facility] Last Admin: 01/20/19 09:50 Dose: Not Given Senna (Senna -) 2 tab PO HS [facility]S [facility] Last Admin: 01/19/19 21:55 Dose: Not Given - Objective Vital Signs: Vital Signs Temperature 97.4 F L 01/19/19 21:00 Pulse Rate 73 01/20/19 08:37 Respiratory Rate 17 01/20/19 08:37 Blood Pressure 153/94 01/20/19 08:37 O2 Sat by Pulse Oximetry (%) 100 01/20/19 08:37 Constitutional: Yes: No Distress, Calm Cardiovascular: Yes: Pulse Irregular Respiratory: Yes: Rhonchi Gastrointestinal: Yes: Soft (NT) Edema: No Neurological: Yes: Alert, Oriented ...Motor Strength: WNL Labs: CBC, BMP 01/20/19 05:50 01/20/19 05:30 INR, PTT INR 1.04 (0.83-1.09) 01/20/19 05:43 Laboratory Tests 01/20/19 01/20/19 01/20/19 05:30 05:43 05:50 WBC 4.1 Hgb 10.6 L Plt Count 249 PTT ([place] FS) 73.7 H Sodium 135 L Potassium 3.3 L Creatinine 0.8 - ....Imaging EKG: Image Reviewed Assessment/Plan echo 12/2018 tds, EF 45-50% mildly reduced LV function, RV not well visualized, LA/RA severely dilated, [facility] MVR/AVR well seated, mild MR, mild AR tele: AF, controlled fall - patient denies syncope, dizziness--fall mechanical in nature - CT head no bleed - on obligatory AC for [facility] heart valves - phys therapy acute diastolic HF exacerbation - BNP >9000, JVD on exam with congestive changes on CXR - echo mildly reduced LV function with stable MVR/AVR function - vol status improved s/p iv lasix. - effusions vs atx on exam--cont po lasix 40 bid. rpt CXR stable elevated trop - indeterminate range, flat trend. no ischemic changes on EKG - no suspicion of ACS h/o mechanical MVR, AVR - goal INR 2.5-3.5 - INR <2.5 - bridging with heparin gtt - echo shows stable valve function, outpatient follow up afib - cont coumadin, metoprolol, rate stable anemia, preop CV eval: - counts stable here, transfused - GI has seen pt, planned EGD and FOC for w/u of occult GIB. - Revised CV Risk Index 1, unknown functional status. no signs/sx of active CHF or CAD s/p diuresis. at acceptable CV risk for procedure. - holding coumadin, INR <2.5 - start hep gtt given that she has mechanical valve. hep gtt can be held briefly for procedure to minimize time off AC. HLD - cont statin
--- NOTE | 2019-01-20 10:12 | PN ---
Progress Note (short form) - Note Progress Note: ID CONSULT DICTATED ANEMIA R/O GI BLEED S/P MVR/AVR PCN ALLERGY WILL GIVE PROPHYLACTIC VANCOMYCIN/ GENTAMICIN PRIOR TO ENDOSCOPIC PROCEDURES
[2019-01-20] MEDS ORDERED: GENTAMICIN 80 MG PREMIXED IVPB 80 MG/100 ML BAG IVPB ONE (10:26)
[2019-01-20] MEDS: D5-NS + 40 MEQ KCL - 40 MEQ/1,000 ML INFUS.BAG IV SCH (10:45)
[2019-01-20] MEDS ORDERED: VANCOMYCIN 750 MG in DEXTROSE 5%-WATER - 250 ML IVPB ONE (11:00)
--- NOTE | 2019-01-20 11:45 | PN ---
Progress Note, Physician Chief Complaint: in bed awaiting EGD colonoscopy no new c/o VSS - Current Medication List Current Medications: Active Medications Buspirone HCl (Buspar -) 5 mg PO BID [facility] Last Admin: 01/20/19 09:49 Dose: Not Given Folic Acid (Folic Acid -) 1 mg PO DAILY [facility] Last Admin: 01/20/19 09:49 Dose: Not Given Furosemide (Lasix -) 40 mg PO BID@0600,1400 [facility] Last Admin: 01/20/19 06:47 Dose: Not Given Heparin Sodium (Porcine) (Heparin -) 1,000 unit IVPUSH PRN PRN PRN Reason: Heparin Heparin Sodium (Porcine) (Heparin -) 5,000 unit IVPUSH PRN PRN PRN Reason: Heparin Heparin Sodium (Porcine) 25, (000 unit/ Sodium Chloride) 500 mls @ 20 mls/hr IV TITR [facility]; Protocol Last Titration: 01/20/19 10:30 Dose: 0 unit/hr, 0 mls/hr Dextrose/Sodium Chloride (Dextrose 5%-Normal Saline+40 Meq Kcl -) 40 meq in 1, 000 mls @ 42 mls/hr IV ASDIR [facility] Last Admin: 01/20/19 10:45 Dose: 42 mls/hr Vancomycin HCl 750 mg/ (Dextrose) 250 mls @ 250 mls/hr IVPB ONCE ONE; Protocol Stop: 01/20/19 11:59 Last Admin: 01/20/19 11:43 Dose: 250 mls/hr Metoprolol Succinate (Toprol Xl -) 50 mg PO BID [facility] Last Admin: 01/20/19 11:08 Dose: Not Given Pantoprazole Sodium (Protonix -) 40 mg PO BID [facility] Last Admin: 01/20/19 09:50 Dose: Not Given Polyethylene Glycol (Miralax (For Daily Use) -) 17 gm PO BID [facility] Last Admin: 01/20/19 09:50 Dose: Not Given Senna (Senna -) 2 tab PO HS [facility] Last Admin: 01/19/19 21:55 Dose: Not Given - Objective Vital Signs: Vital Signs Temperature 97.4 F L 01/19/19 21:00 Pulse Rate 73 01/20/19 08:37 Respiratory Rate 17 01/20/19 08:37 Blood Pressure 153/94 01/20/19 08:37 O2 Sat by Pulse Oximetry (%) 100 01/20/19 08:37 Constitutional: Yes: No Distress, Calm Eyes: Yes: Conjunctiva Clear HENT: Yes: Atraumatic Neck: Yes: Supple Cardiovascular: Yes: Regular Rate and Rhythm Respiratory: Yes: Diminished Gastrointestinal: Yes: Soft. No: Tenderness Genitourinary: No: Hematuria Musculoskeletal: No: Joint Stiffness, Joint Swelling Extremities: No: Cold, Cool Edema: No Integumentary: No: Rash, Venous Stasis Changes Neurological: Yes: WNL, Alert, Oriented ...Motor Strength: WNL Psychiatric: Yes: WNL, Alert, Oriented. No: Agitated, Suicidal Ideation Labs: CBC, BMP 01/20/19 05:50 01/20/19 05:30 INR, PTT INR 1.04 (0.83-1.09) 01/20/19 05:43 - ....Imaging Other: Report Reviewed Assessment/Plan Leena Oliva is a 83yo F h/o HTN, a fib, valve replacement (20yrs ago) on coumadin and 3L NC baseline presenting with head trauma s/p fall. s/p fall at [facility] on AC / [facility] Valve; found to be anemic also r/o GI Bleed admitted to telemetry s/p PRBC f.u labs cardio and GI f/u EGD colonoscopy; OFF AC for now d./w pt risks of CVA MS in view of mechanical valve with holding AC she is aware falls decubs PFX d/w pt and staff
--- NOTE | 2019-01-20 12:24 | CONS ---
INFECTIOUS DISEASE CONSULTATION DATE OF CONSULTATION: DATE OF DICTATION: 01/20/2019 HISTORY: The patient is an 83-year-old female who was evaluated for prophylactic antibiotic therapy. She is an 83-year-old female who was admitted to the hospital on January 07, 2019, after a mechanical fall resulting in head trauma. She denied loss of consciousness. Her hospital course was complicated by anemia and guaiac-positive stool. She is scheduled to have an upper endoscopy and a colonoscopy today. The patient has a history of aortic and mitral valve replacements. She has mechanical ventilations, which were placed in 1997. She denies history of prosthetic valve endocarditis. She denies any recent fever or chills. PAST MEDICAL HISTORY: Positive for hypertension, atrial fibrillation, valvular heart disease. PAST SURGICAL HISTORY: Status post aortic and mitral valve replacements in 1997 with mechanical valves. ALLERGIES: AMOXICILLIN, CODEINE, DARVON, and DIOVAN. Patient reports rash with AMOXICILLIN in the past. No history of anaphylaxis. MEDICATIONS: Include Dulcolax, BuSpar, folic acid, Lasix, Protonix, Senna. 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 She lives in a correction facility. She is a nonsmoker, nondrinker. SYSTEMS REVIEW: As per HPI. Neurologic: No seizure activity focal weakness. Cardiac: Negative chest pain or palpitations. Respiratory: Negative cough or sputum production. Gastrointestinal: As per HPI. Genitourinary: Negative for urinary tract infection. LABORATORY DATA: White count 4.1, hematocrit 31.4, platelets 249, BUN 17, creatinine 0.8. Urinalysis 10 white cells. PHYSICAL EXAMINATION: General: She is awake and alert. She is seated in bed in no acute distress. Vital Signs: Temperature 97.4, blood pressure 153/94, pulse 73 regular, respirations 17 per minute. HEENT: Sclerae anicteric. No conjunctival hemorrhages. Heart: Sounds S1, S2 with a mechanical murmur. Lungs: Crepitations at the bases bilaterally. Abdomen: Soft. No tenderness elicited. No mass, rebound, or rigidity. Extremities: Negative for edema. IMPRESSION: 1. Status post mechanical fall. 2. Anemia, rule out gastrointestinal bleed. 3. Status post mitral and aortic valve replacements. 4. PENICILLIN allergy. PLAN: Prior to procedure, would empirically prophylax with vancomycin 750 mg IV piggyback 1 dose and gentamicin 80 mg IV piggyback x1 dose. No postprocedure dose advised. Thank you for the kind referral. MEET GAMBOA M.D. [id number]
[2019-01-20] MEDS: HEPARIN - 25,000 UNIT in SODIUM CHLORIDE 495 ML IV SCH (13:17)
--- NOTE | 2019-01-20 15:16 | PN ---
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 Problem List - Problems (1) Anemia Code(s): D64.9 - ANEMIA, UNSPECIFIED Qualifiers: Anemia type: unspecified type Qualified Code(s): D64.9 - Anemia, unspecified (2) Occult blood in stools Code(s): R19.5 - OTHER FECAL ABNORMALITIES (3) Colon polyp Code(s): K63.5 - POLYP OF COLON (4) Rheumatic aortic valve disease, unspecified Code(s): I06.9 - RHEUMATIC AORTIC VALVE DISEASE, UNSPECIFIED (5) Rheumatic disease of mitral valve Code(s): I05.9 - RHEUMATIC MITRAL VALVE DISEASE, UNSPECIFIED (6) History of appendectomy Code(s): Z90.49 - ACQUIRED ABSENCE OF OTHER SPECIFIED PARTS OF DIGESTIVE TRACT (7) History of ovarian cystectomy Code(s): Z98.890 - OTHER SPECIFIED POSTPROCEDURAL STATES; Z87.42 - PERSONAL HISTORY OF OTH DISEASES OF THE FEMALE GENITAL TRACT (8) Family history of ovarian cancer Code(s): Z80.41 - FAMILY HISTORY OF MALIGNANT NEOPLASM OF OVARY (9) Atrial fibrillation Code(s): I48.91 - UNSPECIFIED ATRIAL FIBRILLATION Qualifiers: Atrial fibrillation type: chronic (10) Mechanical heart valve present Code(s): Z95.2 - PRESENCE OF PROSTHETIC HEART VALVE (11) Syncope Code(s): R55 - SYNCOPE AND COLLAPSE Qualifiers: Syncope type: unspecified Qualified Code(s): R55 - Syncope and collapse
--- NOTE | 2019-01-20 16:42 | PN ---
Progress Note (short form) - Note Progress Note: GI Postprocedure NOte: Please see scanned and chart maged of EGD and colonoscopy reports. Please disregard anticoagulation comment on the reports. Please do not resume heparin until the AM and withhold warfarin for 2 more days. A sigmoid polyp was removed and endoclipped. The anemia may reflect an erosive antral gastritis that appears to be healing on a PPI which should be continued. 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 DNR should be reinstated. Dr. Fatima will be covering this weekend. Please call him as needed. Problem List - Problems (1) Anemia Code(s): D64.9 - ANEMIA, UNSPECIFIED Qualifiers: Anemia type: unspecified type Qualified Code(s): D64.9 - Anemia, unspecified (2) Occult blood in stools Code(s): R19.5 - OTHER FECAL ABNORMALITIES (3) Colon polyp Code(s): K63.5 - POLYP OF COLON (4) Rheumatic aortic valve disease, unspecified Code(s): I06.9 - RHEUMATIC AORTIC VALVE DISEASE, UNSPECIFIED (5) Rheumatic disease of mitral valve Code(s): I05.9 - RHEUMATIC MITRAL VALVE DISEASE, UNSPECIFIED (6) History of appendectomy Code(s): Z90.49 - ACQUIRED ABSENCE OF OTHER SPECIFIED PARTS OF DIGESTIVE TRACT (7) History of ovarian cystectomy Code(s): Z98.890 - OTHER SPECIFIED POSTPROCEDURAL STATES; Z87.42 - PERSONAL HISTORY OF OTH DISEASES OF THE FEMALE GENITAL TRACT (8) Family history of ovarian cancer Code(s): Z80.41 - FAMILY HISTORY OF MALIGNANT NEOPLASM OF OVARY (9) Atrial fibrillation Code(s): I48.91 - UNSPECIFIED ATRIAL FIBRILLATION Qualifiers: Atrial fibrillation type: chronic (10) Mechanical heart valve present Code(s): Z95.2 - PRESENCE OF PROSTHETIC HEART VALVE (11) Syncope Code(s): R55 - SYNCOPE AND COLLAPSE Qualifiers: Syncope type: unspecified Qualified Code(s): R55 - Syncope and collapse
[2019-01-20] MEDS: SENNOSIDES 8.6MG TABLET (FP) PO SCH (21:43)
[2019-01-21] MEDS: FUROSEMIDE 40 MG TABLET (FP) PO SCH ×2 (06:25→14:22)
[2019-01-21 06:27] LABS: BASO % 0.6 % (0-2.0); EOS % 1.8 % (0-4.5); HEMATOCRIT 31.2 % (32.4-45.2); HEMOGLOBIN 10.3 GM/dL (10.7-15.3); LYMPH % 4.4 % (8-40); MCH 31.5 pg (25.7-33.7); MEAN CELL VOLUME 95.3 fl (80-96); MONO % 9.1 % (3.8-10.2); NEUT % 84.1 % (42.8-82.8); PLATELET COUNT 240 K/MM3 (134-434); RBC 3.27 M/mm3 (3.60-5.2); RDW 20.6 % (11.6-15.6); RETICULOCYTES 5.02 % (0.5-1.5); WHITE BLOOD COUNT 5.7 K/mm3 (4.0-10.0)
[2019-01-21 06:38] LABS: INR 1.03 (0.83-1.09); PROTHROMBIN TIME (PATIENT) 12.2 SEC (9.7-13.0)
--- NOTE | 2019-01-21 06:49 | PN ---
Progress Note, Physician History of Present Illness: Sigmoid polyp removed Gastritis Vascular ectasia small bowel. GI note reviewed. Hold Coumadin x 48 hours. Can resume heparin gtts this morning. Denies CP, SOB TELE: Controlled AF - Current Medication List Current Medications: Active Medications Buspirone HCl (Buspar -) 5 mg PO BID [facility] Last Admin: 01/20/19 21:45 Dose: 5 mg Folic Acid (Folic Acid -) 1 mg PO DAILY [facility] Last Admin: 01/20/19 09:49 Dose: Not Given Furosemide (Lasix -) 40 mg PO BID@0600,1400 [facility] Last Admin: 01/21/19 06:25 Dose: 40 mg Heparin Sodium (Porcine) (Heparin -) 1,000 unit IVPUSH PRN PRN PRN Reason: Heparin Heparin Sodium (Porcine) (Heparin -) 5,000 unit IVPUSH PRN PRN PRN Reason: Heparin Heparin Sodium (Porcine) 25, (000 unit/ Sodium Chloride) 500 mls @ 20 mls/hr IV TITR [facility]; Protocol Last Admin: 01/20/19 13:17 Dose: Not Given Dextrose/Sodium Chloride (Dextrose 5%-Normal Saline+40 Meq Kcl -) 40 meq in 1, 000 mls @ 42 mls/hr IV ASDIR [facility] Last Admin: 01/20/19 10:45 Dose: 42 mls/hr Metoprolol Succinate (Toprol Xl -) 50 mg PO BID [facility] Last Admin: 01/20/19 21:43 Dose: 50 mg Pantoprazole Sodium (Protonix -) 40 mg PO BID [facility] Last Admin: 01/20/19 21:43 Dose: 40 mg Polyethylene Glycol (Miralax (For Daily Use) -) 17 gm PO BID [facility] Last Admin: 01/20/19 21:44 Dose: Not Given Senna (Senna -) 2 tab PO HS [facility] Last Admin: 01/20/19 21:43 Dose: Not Given - Objective Vital Signs: Vital Signs Temperature 97.8 F 01/20/19 18:00 Pulse Rate 77 01/21/19 02:00 Respiratory Rate 22 H 01/21/19 02:00 Blood Pressure 120/68 01/21/19 02:00 O2 Sat by Pulse Oximetry (%) 100 01/20/19 20:39 Constitutional: Yes: No Distress Cardiovascular: Yes: Pulse Irregular Respiratory: Yes: Rhonchi Gastrointestinal: Yes: Soft Edema: No Neurological: Yes: Alert, Oriented Labs: INR, PTT INR 1.03 (0.83-1.09) 01/21/19 05:35 Laboratory Tests 01/12/19 01/20/19 01/21/19 09:05 05:43 05:35 WBC Hgb Plt Count INR 1.03 PTT (Actin FS) 73.7 H Sodium Potassium Creatinine Stool Occult Blood Positive 01/21/19 01/21/19 01/21/19 05:35 05:35 05:55 WBC 5.7 Hgb 10.3 L Plt Count 240 INR PTT (Actin FS) Pending Sodium 138 Potassium 4.2 Creatinine 0.8 Stool Occult Blood - ....Imaging EKG: Image Reviewed Assessment/Plan Assessment/Plan echo 12/2018 tds, EF 45-50% mildly reduced LV function, RV not well visualized, LA/RA severely dilated, [facility] MVR/AVR well seated, mild MR, mild AR tele: AF, controlled Fall: - patient denies syncope, dizziness--fall mechanical in nature - CT head no bleed - on obligatory AC for [facility] heart valves - phys therapy Acute diastolic HF exacerbation: - BNP >9000, JVD on exam with congestive changes on CXR - echo mildly reduced LV function with stable MVR/AVR function - vol status improved s/p iv lasix. - effusions vs atx on exam--cont po lasix 40 bid. rpt CXR stable Elevated trop: - indeterminate range, flat trend. no ischemic changes on EKG - no suspicion of ACS h/o mechanical MVR, AVR: - goal INR 2.5-3.5 - INR <2.5 - bridging with heparin gtt to resume this AM as per GI. Hold Coumadin additional 48 hours. - echo shows stable valve function, outpatient follow up AFIB: - AC as outlined above and in GI note, metoprolol, rate stable Anemia: gastritis, sigmoid polyp removed, vascular ectasia: - counts stable here, transfused - Tolerated colonoscopy well - To resume heparin gtts this AM as per GI, holding coumadin additional 48 hours HLD - cont statin
[2019-01-21 06:58] LABS: BLOOD UREA NITROGEN 12.9 mg/dL (7-18); CREATININE 0.8 mg/dL (0.55-1.3); POTASSIUM 4.2 mmol/L (3.5-5.1)
[2019-01-21] MEDS ORDERED: HEPARIN NA (PORCINE) 5,000 UNITS/ML 1ML VIAL IVPUSH PRN ×2 (09:14)
[2019-01-21] MEDS: PANTOPRAZOLE 40 MG TABLET (FP) PO SCH ×2 (09:51→21:21)
[2019-01-21] MEDS: FOLIC ACID 1 MG TABLET (FP) PO SCH (09:51)
[2019-01-21] MEDS: busPIRone HCL 5 MG TABLET PO SCH ×2 (09:51→21:21)
[2019-01-21] MEDS: POLYETHYLENE GLYCOL 3350 119 GM BTL PO SCH ×2 (09:52→21:20)
[2019-01-21] MEDS: D5-NS + 40 MEQ KCL - 40 MEQ/1,000 ML INFUS.BAG IV SCH (09:57)
[2019-01-21] MEDS ORDERED: PT OWN MED DRAWER 7, Y5N ONE (10:30)
[2019-01-21] MEDS: HEPARIN - 25,000 UNIT in SODIUM CHLORIDE 495 ML IV SCH (10:41)
[2019-01-21 11:24] LABS: ANISOCYTOSIS 1+; MACROCYTOSIS 1+; OVALOCYTE 1+; PLATELET ESTIMATE NORMAL
--- NOTE | 2019-01-21 11:27 | PN ---
Progress Note (short form) - Note Progress Note: Hgb/Hct stable: CBC WBC 5.7 K/mm3 (4.0-10.0) 01/21/19 05:35 RBC 3.27 M/mm3 (3.60-5.2) L 01/21/19 05:35 Hgb 10.3 GM/dL (10.7-15.3) L 01/21/19 05:35 Hct 31.2 % (32.4-45.2) L 01/21/19 05:35 MCV 95.3 fl (80-96) 01/21/19 05:35 MCH 31.5 pg (25.7-33.7) 01/21/19 05:35 MCHC 33.0 g/dl (32.0-36.0) 01/21/19 05:35 RDW 20.6 % (11.6-15.6) H 01/21/19 05:35 Plt Count 240 K/MM3 (134-434) 01/21/19 05:35 MPV 7.0 fl (7.5-11.1) L 01/21/19 05:35 Absolute Neuts (auto) 4.8 K/mm3 (1.5-8.0) 01/21/19 05:35 Neutrophils % 84.1 % (42.8-82.8) H 01/21/19 05:35 Lymphocytes % 4.4 % (8-40) L D 01/21/19 05:35 Monocytes % 9.1 % (3.8-10.2) 01/21/19 05:35 Eosinophils % 1.8 % (0-4.5) 01/21/19 05:35 Basophils % 0.6 % (0-2.0) 01/21/19 05:35 Nucleated RBC % 0 % (0-0) 01/21/19 05:35 Hypochromia 1+ 01/16/19 06:05 Platelet Estimate Normal 01/16/19 06:05 Polychromasia 1+ 01/16/19 06:05 Poikilocytosis 0 01/16/19 06:05 Basophilic Stippling 1+ 01/16/19 06:05 Anisocytosis 2+ 01/16/19 06:05 Microcytosis 1+ 01/16/19 06:05 Macrocytosis 0 01/16/19 06:05 Retic Count 5.02 % (0.5-1.5) H D 01/21/19 05:35 Haptoglobin 50 mg/dL (34-200) 01/12/19 05:20 No GI complaints. Oddly she has not noticed any bleeding despite needing multiple transfusions over the past month. With an MCV of 95 it is not likely that she has had a slow GI bleed for a prolonged period of time, as would be expected from a tumor. Continue to monitor CBC. Holding warfarin in light of fresh polypectomy.
--- NOTE | 2019-01-21 12:19 | PN ---
Progress Note, Physician History of Present Illness: Pt w/o SOB, CP, palpitations, abd pain, no blood in stool or urine. She wants to know when is going home. - Current Medication List Current Medications: Active Medications Buspirone HCl (Buspar -) 5 mg PO BID [facility] Last Admin: 01/21/19 09:51 Dose: 5 mg Folic Acid (Folic Acid -) 1 mg PO DAILY [facility] Last Admin: 01/21/19 09:51 Dose: 1 mg Furosemide (Lasix -) 40 mg PO BID@0600,1400 [facility] Last Admin: 01/21/19 06:25 Dose: 40 mg Heparin Sodium (Porcine) (Heparin -) 1,000 unit IVPUSH PRN PRN PRN Reason: Heparin Heparin Sodium (Porcine) (Heparin -) 5,000 unit IVPUSH PRN PRN PRN Reason: Heparin Heparin Sodium (Porcine) (Heparin -) 1,000 unit IVPUSH PRN PRN PRN Reason: Heparin Heparin Sodium (Porcine) (Heparin -) 5,000 unit IVPUSH PRN PRN PRN Reason: Heparin Dextrose/Sodium Chloride (Dextrose 5%-Normal Saline+40 Meq Kcl -) 40 meq in 1, 000 mls @ 42 mls/hr IV ASDIR [facility] Last Admin: 01/21/19 09:57 Dose: 42 mls/hr Heparin Sodium (Porcine) 25, (000 unit/ Sodium Chloride) 500 mls @ 16 mls/hr IV TITR [facility]; Protocol Last Admin: 01/21/19 10:41 Dose: 800 unit/hr, 16 mls/hr Metoprolol Succinate (Toprol Xl -) 50 mg PO BID [facility] Last Admin: 01/21/19 09:51 Dose: 50 mg Pantoprazole Sodium (Protonix -) 40 mg PO BID [facility] Last Admin: 01/21/19 09:51 Dose: 40 mg Polyethylene Glycol (Miralax (For Daily Use) -) 17 gm PO BID [facility] Last Admin: 01/21/19 09:52 Dose: 17 grams Senna (Senna -) 2 tab PO HS [facility] Last Admin: 01/20/19 21:43 Dose: Not Given - Objective Vital Signs: Vital Signs Temperature 98 F 01/21/19 10:21 Pulse Rate 82 01/21/19 10:21 Respiratory Rate 26 H 01/21/19 10:21 Blood Pressure 116/65 01/21/19 10:21 O2 Sat by Pulse Oximetry (%) 100 01/20/19 20:39 Constitutional: Yes: No Distress, Calm Cardiovascular: Yes: Regular Rate and Rhythm, Murmur, S1, S2 Respiratory: Yes: Regular, CTA Bilaterally (except crackle at right base) Gastrointestinal: Yes: Normal Bowel Sounds, Soft. No: Tenderness Edema: No Neurological: Yes: Alert, Oriented Labs: CBC, BMP 01/21/19 05:35 01/21/19 05:55 INR, PTT INR 1.03 (0.83-1.09) 01/21/19 05:35 Problem List - Problems (1) Elevation of cardiac enzymes Code(s): R74.8 - ABNORMAL LEVELS OF OTHER SERUM ENZYMES (2) Mechanical heart valve present Code(s): Z95.2 - PRESENCE OF PROSTHETIC HEART VALVE (3) Anemia Code(s): D64.9 - ANEMIA, UNSPECIFIED Qualifiers: Anemia type: unspecified type Qualified Code(s): D64.9 - Anemia, unspecified (4) Fall Code(s): W19.XXXA - UNSPECIFIED FALL, INITIAL ENCOUNTER (5) Atrial fibrillation Code(s): I48.91 - UNSPECIFIED ATRIAL FIBRILLATION Qualifiers: Atrial fibrillation type: chronic (6) Syncope Code(s): R55 - SYNCOPE AND COLLAPSE Qualifiers: Syncope type: unspecified Qualified Code(s): R55 - Syncope and collapse Assessment/Plan Admitted to monitor bed. Pt required PRBC Tx (4 units this admission). Cardio, GI consults are appreciated. S/p EGD, Colonoscopy (+ sigmoid polypectomy, + erosive antral gastritis, + cecal angiodysplasia). Pt with mechanical valves, now on IV Heparin drip; Warfarin is hold for 48 hours ; monitor H/H AM labs
--- NOTE | 2019-01-21 15:03 | PN ---
Progress Note, Physician History of Present Illness: Pt w/o SOB, CP, palpitations, abd pain, no blood in stool or urine. - Current Medication List Current Medications: Active Medications Buspirone HCl (Buspar -) 5 mg PO BID [facility] Last Admin: 01/21/19 09:51 Dose: 5 mg Folic Acid (Folic Acid -) 1 mg PO DAILY [facility] Last Admin: 01/21/19 09:51 Dose: 1 mg Furosemide (Lasix -) 40 mg PO BID@0600,1400 [facility] Last Admin: 01/21/19 14:22 Dose: 40 mg Heparin Sodium (Porcine) (Heparin -) 1,000 unit IVPUSH PRN PRN PRN Reason: Heparin Heparin Sodium (Porcine) (Heparin -) 5,000 unit IVPUSH PRN PRN PRN Reason: Heparin Heparin Sodium (Porcine) (Heparin -) 1,000 unit IVPUSH PRN PRN PRN Reason: Heparin Heparin Sodium (Porcine) (Heparin -) 5,000 unit IVPUSH PRN PRN PRN Reason: Heparin Dextrose/Sodium Chloride (Dextrose 5%-Normal Saline+40 Meq Kcl -) 40 meq in 1, 000 mls @ 42 mls/hr IV ASDIR [facility] Last Admin: 01/21/19 09:57 Dose: 42 mls/hr Heparin Sodium (Porcine) 25, (000 unit/ Sodium Chloride) 500 mls @ 16 mls/hr IV TITR [facility]; Protocol Last Admin: 01/21/19 10:41 Dose: 800 unit/hr, 16 mls/hr Metoprolol Succinate (Toprol Xl -) 50 mg PO BID [facility] Last Admin: 01/21/19 09:51 Dose: 50 mg Pantoprazole Sodium (Protonix -) 40 mg PO BID [facility] Last Admin: 01/21/19 09:51 Dose: 40 mg Polyethylene Glycol (Miralax (For Daily Use) -) 17 gm PO BID [facility] Last Admin: 01/21/19 09:52 Dose: 17 grams Senna (Senna -) 2 tab PO HS [facility] Last Admin: 01/20/19 21:43 Dose: Not Given - Objective Vital Signs: Vital Signs Temperature 98 F 01/21/19 10:21 Pulse Rate 84 01/21/19 14:33 Respiratory Rate 22 H 01/21/19 14:33 Blood Pressure 114/80 01/21/19 14:33 O2 Sat by Pulse Oximetry (%) 100 01/20/19 20:39 Constitutional: Yes: No Distress, Calm Cardiovascular: Yes: Regular Rate and Rhythm, Murmur, S1, S2 Respiratory: Yes: Regular, Other (crackle at bases, R > L) Gastrointestinal: Yes: Normal Bowel Sounds, Soft. No: Tenderness Edema: No Neurological: Yes: Alert, Oriented Psychiatric: Yes: Alert, Oriented Labs: CBC, BMP 01/21/19 05:35 01/21/19 05:55 INR, PTT INR 1.03 (0.83-1.09) 01/21/19 05:35 Problem List - Problems (1) Elevation of cardiac enzymes Code(s): R74.8 - ABNORMAL LEVELS OF OTHER SERUM ENZYMES (2) Mechanical heart valve present Code(s): Z95.2 - PRESENCE OF PROSTHETIC HEART VALVE (3) Anemia Code(s): D64.9 - ANEMIA, UNSPECIFIED Qualifiers: Anemia type: unspecified type Qualified Code(s): D64.9 - Anemia, unspecified (4) Fall Code(s): W19.XXXA - UNSPECIFIED FALL, INITIAL ENCOUNTER (5) Atrial fibrillation Code(s): I48.91 - UNSPECIFIED ATRIAL FIBRILLATION Qualifiers: Atrial fibrillation type: chronic (6) Syncope Code(s): R55 - SYNCOPE AND COLLAPSE Qualifiers: Syncope type: unspecified Qualified Code(s): R55 - Syncope and collapse Assessment/Plan Admitted to monitor bed. Pt required PRBC Tx (4 units this admission). Cardio, GI consults are appreciated. S/p EGD, Colonoscopy yesterday; + sigmoid polypectomy, + erosive antral gastritis, + cecal angiodysplasia. Pt with mechanical valves, now on IV Heparin drip; Warfarin on hold. AM labs
[2019-01-21 18:01] LABS: PROTHROMBIN TIME (PATIENT) 11.8 SEC (9.7-13.0)
[2019-01-21 18:04] LABS: ACTIVATED PTT 67.6 SECONDS (25.2-36.5)
[2019-01-21] MEDS: SENNOSIDES 8.6MG TABLET (FP) PO SCH (21:21)
[2019-01-22] MEDS ORDERED: FUROSEMIDE 40 MG/4 ML INJECTABLE VIAL ONE (05:55)
[2019-01-22] MEDS: FUROSEMIDE 40 MG TABLET (FP) PO SCH ×2 (06:00→13:17)
[2019-01-22] MEDS ORDERED: FUROSEMIDE 40 MG/4 ML INJECTABLE VIAL IVPUSH ONE (06:00)
[2019-01-22 06:29] LABS: HEMATOCRIT 30.7 % (32.4-45.2); MCH 31.3 pg (25.7-33.7); MCHC 32.4 g/dl (32.0-36.0); MEAN CELL VOLUME 96.5 fl (80-96); MEAN PLT VOLUME 7.1 fl (7.5-11.1); PLATELET COUNT 229 K/MM3 (134-434); RBC 3.18 M/mm3 (3.60-5.2); RDW 20.2 % (11.6-15.6); WHITE BLOOD COUNT 4.7 K/mm3 (4.0-10.0)
[2019-01-22 07:02] LABS: ALBUMIN 2.6 g/dl (3.4-5.0); BILIRUBIN,TOTAL 0.5 mg/dL (0.2-1); BLOOD UREA NITROGEN 15.5 mg/dL (7-18); CALCIUM 7.7 mg/dL (8.5-10.1); CREATININE 0.8 mg/dL (0.55-1.3); POTASSIUM 4.1 mmol/L (3.5-5.1)
[2019-01-22 07:22] LABS: INR 0.98 (0.83-1.09); PROTHROMBIN TIME (PATIENT) 11.6 SEC (9.7-13.0)
--- NOTE | 2019-01-22 08:00 | PN ---
Progress Note, Physician Chief Complaint: d/w RN Had episode desat early this AM to 80s o, 2-3 L; now O2 increased to 4 L with sat 99% She denies CP, SOB Was ordered for IV Lasix Tele: controlled AF - Current Medication List Current Medications: Active Medications Buspirone HCl (Buspar -) 5 mg PO BID [facility] Last Admin: 01/21/19 21:21 Dose: 5 mg Folic Acid (Folic Acid -) 1 mg PO DAILY [facility] Last Admin: 01/21/19 09:51 Dose: 1 mg Furosemide (Lasix -) 40 mg PO BID@0600,1400 [facility] Last Admin: 01/22/19 06:00 Dose: Not Given Heparin Sodium (Porcine) (Heparin -) 1,000 unit IVPUSH PRN PRN PRN Reason: Heparin Heparin Sodium (Porcine) (Heparin -) 5,000 unit IVPUSH PRN PRN PRN Reason: Heparin Heparin Sodium (Porcine) (Heparin -) 1,000 unit IVPUSH PRN PRN PRN Reason: Heparin Heparin Sodium (Porcine) (Heparin -) 5,000 unit IVPUSH PRN PRN PRN Reason: Heparin Dextrose/Sodium Chloride (Dextrose 5%-Normal Saline+40 Meq Kcl -) 40 meq in 1, 000 mls @ 42 mls/hr IV [facility] Last Admin: 01/21/19 09:57 Dose: 42 mls/hr Heparin Sodium (Porcine) 25, (000 unit/ Sodium Chloride) 500 mls @ 16 mls/hr IV TITR [facility]; Protocol Last Admin: 01/21/19 10:41 Dose: 800 unit/hr, 16 mls/hr Metoprolol Succinate (Toprol Xl -) 50 mg PO BID [facility] Last Admin: 01/21/19 21:21 Dose: 50 mg Pantoprazole Sodium (Protonix -) 40 mg PO BID [facility] Last Admin: 01/21/19 21:21 Dose: 40 mg Polyethylene Glycol (Miralax (For Daily Use) -) 17 gm PO BID [facility] Last Admin: 01/21/19 21:20 Dose: Not Given Senna (Senna -) 2 tab PO HS [facility] Last Admin: 01/21/19 21:21 Dose: Not Given - Objective Vital Signs: Vital Signs Temperature 97.8 F 01/22/19 06:00 Pulse Rate 79 01/22/19 06:00 Respiratory Rate 21 H 01/22/19 06:00 Blood Pressure 112/59 L 01/22/19 06:00 O2 Sat by Pulse Oximetry (%) 100 01/20/19 20:39 Constitutional: Yes: Calm Cardiovascular: Yes: Pulse Irregular Respiratory: Yes: Other (KYPHOSIS; rales at LEFT BASE TODAY) Gastrointestinal: Yes: Soft Edema: No Peripheral Pulses WNL: Yes Neurological: Yes: Alert, Oriented Labs: CBC, BMP 01/22/19 05:30 01/22/19 05:30 INR, PTT INR 0.98 (0.83-1.09) 01/22/19 05:30 - ....Imaging EKG: Image Reviewed Assessment/Plan Assessment/Plan echo 12/2018 tds, EF 45-50% mildly reduced LV function, RV not well visualized, LA/RA severely dilated, [facility] MVR/AVR well seated, mild MR, mild AR tele: AF, controlled Fall: - patient denies syncope, dizziness--fall mechanical in nature - CT head no bleed - on obligatory AC for [facility] heart valves - phys therapy Acute diastolic HF exacerbation: now with increased O2 requirements - BNP >9000, JVD on exam with congestive changes on CXR - echo mildly reduced LV function with stable MVR/AVR function - Agree to resume IV lasix, daily weights and BMP; REPEAT CXR THIS AM (ORDERED) Elevated trop: - indeterminate range, flat trend. no ischemic changes on EKG - no suspicion of ACS h/o mechanical MVR, AVR: - goal INR 2.5-3.5 - INR <2.5 - bridging with heparin gtt resumed as per GI. Holding Coumadin until 01/23 as per GI - echo shows stable valve function, outpatient follow up AFIB: - AC as outlined above and in GI note, metoprolol, rate stable Anemia: gastritis, sigmoid polyp removed, vascular ectasia: - counts stable here, transfused - Tolerated colonoscopy well - HEP TO COUM HLD - cont statin
[2019-01-22] MEDS: PANTOPRAZOLE 40 MG TABLET (FP) PO SCH ×2 (09:56→21:13)
[2019-01-22] MEDS: busPIRone HCL 5 MG TABLET PO SCH ×2 (09:56→21:14)
[2019-01-22] MEDS: FOLIC ACID 1 MG TABLET (FP) PO SCH (09:56)
[2019-01-22] MEDS: HEPARIN - 25,000 UNIT in SODIUM CHLORIDE 495 ML IV SCH ×2 (09:57→17:22)
[2019-01-22] MEDS: POLYETHYLENE GLYCOL 3350 119 GM BTL PO SCH ×2 (10:17→21:14)
--- NOTE | 2019-01-22 16:01 | PN ---
Progress Note, Physician History of Present Illness: Pt w/o SOB, CP, palpitations, abd pain, no blood in stool or urine. - Current Medication List Current Medications: Active Medications Buspirone HCl (Buspar -) 5 mg PO BID [facility] Last Admin: 01/22/19 09:56 Dose: 5 mg Folic Acid (Folic Acid -) 1 mg PO DAILY [facility] Last Admin: 01/22/19 09:56 Dose: 1 mg Furosemide (Lasix -) 40 mg PO BID@0600,1400 [facility] Last Admin: 01/22/19 13:17 Dose: 40 mg Heparin Sodium (Porcine) (Heparin -) 1,000 unit IVPUSH PRN PRN PRN Reason: Heparin Heparin Sodium (Porcine) (Heparin -) 5,000 unit IVPUSH PRN PRN PRN Reason: Heparin Heparin Sodium (Porcine) (Heparin -) 1,000 unit IVPUSH PRN PRN PRN Reason: Heparin Heparin Sodium (Porcine) (Heparin -) 5,000 unit IVPUSH PRN PRN PRN Reason: Heparin Dextrose/Sodium Chloride (Dextrose 5%-Normal Saline+40 Meq Kcl -) 40 meq in 1, 000 mls @ 42 mls/hr IV ASDIR [facility] Last Admin: 01/21/19 09:57 Dose: 42 mls/hr Heparin Sodium (Porcine) 25, (000 unit/ Sodium Chloride) 500 mls @ 16 mls/hr IV TITR [facility]; Protocol Last Admin: 01/22/19 09:57 Dose: Not Given Metoprolol Succinate (Toprol Xl -) 50 mg PO BID [facility] Last Admin: 01/22/19 09:56 Dose: 50 mg Pantoprazole Sodium (Protonix -) 40 mg PO BID [facility] Last Admin: 01/22/19 09:56 Dose: 40 mg Polyethylene Glycol (Miralax (For Daily Use) -) 17 gm PO BID [facility] Last Admin: 01/22/19 10:17 Dose: 17 grams Senna (Senna -) 2 tab PO HS [facility] Last Admin: 01/21/19 21:21 Dose: Not Given - Objective Vital Signs: Vital Signs Temperature 97.8 F 01/22/19 10:00 Pulse Rate 78 01/22/19 10:00 Respiratory Rate 19 01/22/19 10:00 Blood Pressure 105/50 L 01/22/19 10:00 O2 Sat by Pulse Oximetry (%) 100 01/22/19 08:20 Constitutional: Yes: No Distress, Calm Cardiovascular: Yes: Pulse Irregular, Murmur, S1, S2 Respiratory: Yes: Regular, CTA Bilaterally, Rales (crackles) Gastrointestinal: Yes: Normal Bowel Sounds, Soft. No: Tenderness Edema: LLE: Trace, RLE: Trace Neurological: Yes: Alert, Oriented Labs: CBC, BMP 01/22/19 05:30 01/22/19 05:30 INR, PTT INR 0.98 (0.83-1.09) 01/22/19 05:30 Problem List - Problems (1) Elevation of cardiac enzymes Code(s): R74.8 - ABNORMAL LEVELS OF OTHER SERUM ENZYMES (2) Mechanical heart valve present Code(s): Z95.2 - PRESENCE OF PROSTHETIC HEART VALVE (3) Anemia Code(s): D64.9 - ANEMIA, UNSPECIFIED Qualifiers: Anemia type: unspecified type Qualified Code(s): D64.9 - Anemia, unspecified (4) Fall Code(s): W19.XXXA - UNSPECIFIED FALL, INITIAL ENCOUNTER (5) Atrial fibrillation Code(s): I48.91 - UNSPECIFIED ATRIAL FIBRILLATION Qualifiers: Atrial fibrillation type: chronic (6) Syncope Code(s): R55 - SYNCOPE AND COLLAPSE Qualifiers: Syncope type: unspecified Qualified Code(s): R55 - Syncope and collapse Assessment/Plan Admitted to monitor bed. Pt required PRBC Tx (4 units this admission). Cardio, GI consults are appreciated. S/p EGD, Colonoscopy; + sigmoid polypectomy, + erosive antral gastritis, + cecal angiodysplasia. Pt with mechanical valves, now on IV Heparin drip; Warfarin on hold for tonight , to start it tomorrow night. AM labs
[2019-01-22] MEDS: SENNOSIDES 8.6MG TABLET (FP) PO SCH (21:14)
[2019-01-23 06:38] LABS: HEMATOCRIT 30.1 % (32.4-45.2); HEMOGLOBIN 9.8 GM/dL (10.7-15.3); MCH 31.6 pg (25.7-33.7); MCHC 32.7 g/dl (32.0-36.0); MEAN CELL VOLUME 96.7 fl (80-96); MEAN PLT VOLUME 7.2 fl (7.5-11.1); PLATELET COUNT 237 K/MM3 (134-434); RBC 3.11 M/mm3 (3.60-5.2); RDW 20.3 % (11.6-15.6); WHITE BLOOD COUNT 4.7 K/mm3 (4.0-10.0)
[2019-01-23 07:03] LABS: BLOOD UREA NITROGEN 23.7 mg/dL (7-18); POTASSIUM 4.2 mmol/L (3.5-5.1)
--- NOTE | 2019-01-23 08:49 | PN ---
Progress Note, Physician Chief Complaint: sob History of Present Illness: no more sob no cp, palpit, syncope - Current Medication List Current Medications: Active Medications Buspirone HCl (Buspar -) 5 mg PO BID [facility] Last Admin: 01/22/19 21:14 Dose: 5 mg Folic Acid (Folic Acid -) 1 mg PO DAILY [facility] Last Admin: 01/22/19 09:56 Dose: 1 mg Furosemide (Lasix Injection -) 40 mg IVPUSH DAILY [facility] Heparin Sodium (Porcine) (Heparin -) 1,000 unit IVPUSH PRN PRN PRN Reason: Heparin Heparin Sodium (Porcine) (Heparin -) 5,000 unit IVPUSH PRN PRN PRN Reason: Heparin Heparin Sodium (Porcine) (Heparin -) 1,000 unit IVPUSH PRN PRN PRN Reason: Heparin Heparin Sodium (Porcine) (Heparin -) 5,000 unit IVPUSH PRN PRN PRN Reason: Heparin Heparin Sodium (Porcine) 25, (000 unit/ Sodium Chloride) 500 mls @ 16 mls/hr IV TITR [facility]; Protocol Last Titration: 01/23/19 08:24 Dose: 700 unit/hr, 14 mls/hr Metoprolol Succinate (Toprol Xl -) 50 mg PO BID [facility] Last Admin: 01/22/19 21:13 Dose: 50 mg Pantoprazole Sodium (Protonix -) 40 mg PO BID [facility] Last Admin: 01/22/19 21:13 Dose: 40 mg Polyethylene Glycol (Miralax (For Daily Use) -) 17 gm PO BID [facility] Last Admin: 01/22/19 21:14 Dose: Not Given Senna (Senna -) 2 tab PO [facility] Last Admin: 01/22/19 21:14 Dose: Not Given - Objective Vital Signs: Vital Signs Temperature 98.2 F 01/23/19 08:00 Pulse Rate 82 01/23/19 08:00 Respiratory Rate 24 H 01/23/19 08:00 Blood Pressure 119/75 01/23/19 08:00 O2 Sat by Pulse Oximetry (%) 100 01/22/19 08:20 Constitutional: Yes: Well Nourished, No Distress, Calm Cardiovascular: Yes: Pulse Irregular, S1, S2. No: Gallop, Murmur Respiratory: Yes: Regular, Rales (base). No: Accessory Muscle Use Extremities: No: Cold Edema: No Neurological: Yes: Alert, Oriented Psychiatric: No: Agitated Labs: CBC, BMP 01/23/19 05:40 01/23/19 05:40 INR, PTT INR 0.98 (0.83-1.09) 01/22/19 05:30 Assessment/Plan echo 12/2018 tds, EF 45-50% mildly reduced LV function, RV not well visualized, LA/RA severely dilated, [facility] MVR/AVR well seated, mild MR, mild AR tele: AF, controlled Fall: - patient denies syncope, dizziness--fall mechanical in nature - CT head no bleed - on obligatory AC for [facility] heart valves - phys therapy Acute diastolic HF exacerbation: - BNP >9000, JVD on exam with congestive changes on CXR - echo mildly reduced LV function with stable MVR/AVR function - 01/23: desaturated yesterday, requiring incr NC oxygen. CXR with bilateral congestive changes. - initially diuresed here with lasix 40 iv bid, changed to 40 po bid--changed back to IV lasix (40 qd) 01/22--will resume bid iv lasix dosing - would not change to po lasix until cxr clears significantly Elevated trop: - indeterminate range, flat trend. no ischemic changes on EKG - no suspicion of ACS h/o mechanical MVR, AVR: - goal INR 2.5-3.5 - INR <2.5 - bridging with heparin gtt resumed as per GI. resume prior coumadin as of today, per GI rec - echo shows stable valve function, outpatient follow up AFIB: - AC as above - cont metoprolol, rate stable Anemia: gastritis, sigmoid polyp removed, vascular ectasia: - counts stable here, transfused - Tolerated colonoscopy well - HEP TO COUM HLD - cont statin
[2019-01-23] MEDS: FOLIC ACID 1 MG TABLET (FP) PO SCH (09:59)
[2019-01-23] MEDS: busPIRone HCL 5 MG TABLET PO SCH ×2 (09:59→21:22)
[2019-01-23] MEDS ORDERED: FUROSEMIDE 40 MG/4 ML INJECTABLE VIAL IVPUSH SCH (10:00)
[2019-01-23] MEDS: PANTOPRAZOLE 40 MG TABLET (FP) PO SCH ×2 (10:00→21:22)
[2019-01-23] MEDS: POLYETHYLENE GLYCOL 3350 119 GM BTL PO SCH ×2 (10:00→21:22)
[2019-01-23] MEDS: FUROSEMIDE 40 MG/4 ML INJECTABLE VIAL IVPUSH SCH (14:22)
[2019-01-23] MEDS ORDERED: HEPARIN INFUSION - 25,000 UNITS/500 ML INFUS.BAG IVPB ONE (15:43)
[2019-01-23 15:54] VITALS: BMI 16.6
--- NOTE | 2019-01-23 18:31 | PN ---
Progress Note, Physician History of Present Illness: Pt w/o SOB, CP, palpitations, abd pain, no blood in stool or urine. Pt was SOB in AM, required IV Lasix - Current Medication List Current Medications: Active Medications Buspirone HCl (Buspar -) 5 mg PO BID [facility] Last Admin: 01/23/19 09:59 Dose: 5 mg Folic Acid (Folic Acid -) 1 mg PO DAILY [facility] Last Admin: 01/23/19 09:59 Dose: 1 mg Furosemide (Lasix Injection -) 40 mg IVPUSH BIDLASIX [facility] Last Admin: 01/23/19 14:22 Dose: 40 mg Heparin Sodium (Porcine) (Heparin -) 1,000 unit IVPUSH PRN PRN PRN Reason: Heparin Heparin Sodium (Porcine) (Heparin -) 5,000 unit IVPUSH PRN PRN PRN Reason: Heparin Heparin Sodium (Porcine) (Heparin -) 1,000 unit IVPUSH PRN PRN PRN Reason: Heparin Heparin Sodium (Porcine) (Heparin -) 5,000 unit IVPUSH PRN PRN PRN Reason: Heparin Heparin Sodium (Porcine) 25, (000 unit/ Sodium Chloride) 500 mls @ 16 mls/hr IV TITR [facility]; Protocol Last Titration: 01/23/19 08:24 Dose: 700 unit/hr, 14 mls/hr Metoprolol Succinate (Toprol Xl -) 50 mg PO BID [facility] Last Admin: 01/23/19 10:00 Dose: 50 mg Pantoprazole Sodium (Protonix -) 40 mg PO BID [facility] Last Admin: 01/23/19 10:00 Dose: 40 mg Polyethylene Glycol (Miralax (For Daily Use) -) 17 gm PO BID [facility] Last Admin: 01/23/19 10:00 Dose: Not Given Senna (Senna -) 2 tab PO HS [facility] Last Admin: 01/22/19 21:14 Dose: Not Given - Objective Vital Signs: Vital Signs Temperature 98.2 F 01/23/19 08:00 Pulse Rate 88 01/23/19 17:16 Respiratory Rate 20 01/23/19 17:16 Blood Pressure 140/73 01/23/19 17:16 O2 Sat by Pulse Oximetry (%) 100 01/23/19 08:00 Constitutional: Yes: No Distress, Calm Cardiovascular: Yes: Regular Rate and Rhythm, Murmur, S1, S2 Respiratory: Yes: Regular, Other (rales bilat, R > L) Gastrointestinal: Yes: Normal Bowel Sounds, Soft. No: Tenderness Edema: Yes Edema: LLE: Trace, RLE: Trace Neurological: Yes: Alert, Oriented Labs: CBC, BMP 01/23/19 05:40 01/23/19 05:40 INR, PTT INR 0.98 (0.83-1.09) 01/22/19 05:30 Problem List - Problems (1) Elevation of cardiac enzymes Code(s): R74.8 - ABNORMAL LEVELS OF OTHER SERUM ENZYMES (2) Mechanical heart valve present Code(s): Z95.2 - PRESENCE OF PROSTHETIC HEART VALVE (3) Anemia Code(s): D64.9 - ANEMIA, UNSPECIFIED Qualifiers: Anemia type: unspecified type Qualified Code(s): D64.9 - Anemia, unspecified (4) Fall Code(s): W19.XXXA - UNSPECIFIED FALL, INITIAL ENCOUNTER (5) Atrial fibrillation Code(s): I48.91 - UNSPECIFIED ATRIAL FIBRILLATION Qualifiers: Atrial fibrillation type: chronic (6) Syncope Code(s): R55 - SYNCOPE AND COLLAPSE Qualifiers: Syncope type: unspecified Qualified Code(s): R55 - Syncope and collapse Assessment/Plan Admitted to monitor bed. Pt required PRBC Tx (4 units this admission). Cardio, GI consults are appreciated. S/p EGD, Colonoscopy: + sigmoid polypectomy, + erosive antral gastritis, + cecal angiodysplasia. Pt with mechanical valves, now on IV Heparin drip; Restart Warfarin tonight. Monitor INR AM labs
[2019-01-23] MEDS ORDERED: PT OWN MED DRAWER 7, Y5N ONE (19:17)
[2019-01-23] MEDS: WARFARIN NA 3 MG TABLET PO SCH (21:22)
[2019-01-23] MEDS: SENNOSIDES 8.6MG TABLET (FP) PO SCH (21:23)
[2019-01-24] MEDS: FUROSEMIDE 40 MG/4 ML INJECTABLE VIAL IVPUSH SCH ×2 (06:29→13:04)
[2019-01-24 07:31] LABS: HEMOGLOBIN 9.4 GM/dL (10.7-15.3); MCH 31.5 pg (25.7-33.7); MCHC 32.5 g/dl (32.0-36.0); MEAN CELL VOLUME 96.8 fl (80-96); MEAN PLT VOLUME 7.2 fl (7.5-11.1); PLATELET COUNT 228 K/MM3 (134-434); WHITE BLOOD COUNT 4.5 K/mm3 (4.0-10.0)
[2019-01-24 07:34] LABS: INR 0.95 (0.83-1.09); PROTHROMBIN TIME (PATIENT) 11.2 SEC (9.7-13.0)
[2019-01-24 07:37] LABS: ACTIVATED PTT 68.1 SECONDS (25.2-36.5)
[2019-01-24] MEDS: PANTOPRAZOLE 40 MG TABLET (FP) PO SCH ×2 (09:10→22:00)
[2019-01-24] MEDS: FOLIC ACID 1 MG TABLET (FP) PO SCH (09:10)
[2019-01-24] MEDS: busPIRone HCL 5 MG TABLET PO SCH ×2 (09:10→22:00)
[2019-01-24] MEDS: POLYETHYLENE GLYCOL 3350 119 GM BTL PO SCH (09:11)
--- NOTE | 2019-01-24 11:30 | PN ---
Progress Note (short form) - Note Progress Note: s: no chest pain, palps, dizziness, dyspnea Current Medications Buspirone HCl (Buspar -) 5 mg PO BID [facility] Last Admin: 01/24/19 09:10 Dose: 5 mg Folic Acid (Folic Acid -) 1 mg PO DAILY [facility] Last Admin: 01/24/19 09:10 Dose: 1 mg Furosemide (Lasix Injection -) 40 mg IVPUSH BIDLASIX [facility] Last Admin: 01/24/19 06:29 Dose: 40 mg Heparin Sodium (Porcine) (Heparin -) 1,000 unit IVPUSH PRN PRN PRN Reason: Heparin Heparin Sodium (Porcine) (Heparin -) 5,000 unit IVPUSH PRN PRN PRN Reason: Heparin Heparin Sodium (Porcine) (Heparin -) 1,000 unit IVPUSH PRN PRN PRN Reason: Heparin Heparin Sodium (Porcine) (Heparin -) 5,000 unit IVPUSH PRN PRN PRN Reason: Heparin Heparin Sodium (Porcine) 25, (000 unit/ Sodium Chloride) 500 mls @ 16 mls/hr IV TITR [facility]; Protocol Last Titration: 01/24/19 07:49 Dose: 700 unit/hr, 14 mls/hr Metoprolol Succinate (Toprol Xl -) 50 mg PO BID [facility] Last Admin: 01/24/19 09:10 Dose: 50 mg Pantoprazole Sodium (Protonix -) 40 mg PO BID [facility] Last Admin: 01/24/19 09:10 Dose: 40 mg Polyethylene Glycol (Miralax (For Daily Use) -) 17 gm PO BID [facility] Last Admin: 01/24/19 09:11 Dose: Not Given Senna (Senna -) 2 tab PO HS [facility] Last Admin: 01/23/19 21:23 Dose: Not Given Warfarin Sodium (Coumadin -) 3 mg PO DAILY@1800 [facility] Last Admin: 01/23/19 21:22 Dose: 3 mg Vital Signs Period Temp Pulse Resp BP Sys/Vergara Pulse Ox Last 24 Hr 97.7 F-98.6 F 74-92 20-26 108-140/62-78 100-100 Constitutional: Yes: Well Nourished, No Distress, Calm Cardiovascular: Yes: Pulse Irregular, S1, S2. No: Gallop, Murmur Respiratory: Yes: Regular, Rales (bases bilaterally). No: Accessory Muscle Use Extremities: No: Cold Edema: No Neurological: Yes: Alert, Oriented Psychiatric: No: Agitated Assessment/Plan echo 12/2018 tds, EF 45-50% mildly reduced LV function, RV not well visualized, LA/RA severely dilated, [facility] MVR/AVR well seated, mild MR, mild AR tele: AF, controlled Fall: - patient denies syncope, dizziness--fall mechanical in nature - CT head no bleed - on obligatory AC for [facility] heart valves - phys therapy Acute diastolic HF exacerbation: - BNP >9000, JVD on exam with congestive changes on CXR - echo mildly reduced LV function with stable MVR/AVR function - desaturated 01/22 requiring incr NC oxygen. CXR with bilateral congestive changes. - initially diuresed here with lasix 40 iv bid, changed to 40 po bid--changed back to IV lasix (40 qd) 01/22--cont bid iv lasix dosing - would not change to po lasix until cxr clears significantly - repeat CXR in AM Elevated trop: - indeterminate range, flat trend. no ischemic changes on EKG - no suspicion of ACS h/o mechanical MVR, AVR: - goal INR 2.5-3.5 - INR <2.5 - bridging with heparin gtt resumed as per GI, coumadin resumed - echo shows stable valve function, outpatient follow up AFIB: - AC as above - cont metoprolol, rate stable Anemia: gastritis, sigmoid polyp removed, vascular ectasia: - counts stable here, transfused - Tolerated colonoscopy well - heparin restarted, bridging to warfarin as above HLD - cont statin
--- NOTE | 2019-01-24 16:56 | PATH ---
Surgical Pathology Report Patient Name: AMADOR MARTIN [facility]. Rec. #: [id number] /Age/Gender: 1935 (Age: 83) / F Account: [id number] Location: EMERGENCY ROOM Taken: 01/20/2019 Received: 01/23/2019 Reported: 01/24/2019 Physicians: Ministerio Shearer M.D. Specimen(s) Received SIGMOID COLON, POLYP Clinical History GI bleeding, anemia Postoperative diagnosis: Gastritis, sigmoid polyp, cecal angiodysplasia Final Diagnosis SIGMOID COLON, POLYP, BIOPSY: TUBULAR ADENOMA. Electronically Signed Dora Dickinson M.D. Gross Description Received in formalin, labeled "polyp sigmoid" is a agee, irregular portion of soft tissue measuring 0.2 cm. in greatest dimension. The specimen is submitted in toto in one cassette.
--- NOTE | 2019-01-24 17:11 | PN.GI ---
GI Progress Note Subjective: GI NOte: No overt bleeding since the polypectomy. I informed Sister that this was a sigmoid adenoma. I explained however that I suspect her bleeding and anemia was from small bowel vascular ectasia bleeding when her INR was slightly supratherapeutic. No bleeding on heparin . Warfarin has been resumed. - Objective Vital Signs: Vital Signs Temperature 97.6 F 01/24/19 12:00 Pulse Rate 55 L 01/24/19 12:00 Respiratory Rate 22 H 01/24/19 12:00 Blood Pressure 134/70 01/24/19 12:00 O2 Sat by Pulse Oximetry (%) 100 01/24/19 09:00 Laboratory Tests 01/19/19 01/20/19 01/22/19 06:32 05:50 05:30 Hgb 10.8 10.6 L 10.0 L 01/23/19 01/24/19 05:40 06:36 Hgb 9.8 L 9.4 L Constitutional: Calm ...Auscultate: Yes: Normoactive Bowel Sounds ...Palpate: Yes: Soft, Other (nontender) Labs: CBC, BMP 01/24/19 06:36 01/23/19 05:40 INR, PTT INR 0.95 (0.83-1.09) 01/24/19 06:36 Assessment/Plan Assessment: - Transfusion requiring anemia and occult GI bleeding likely due to vascular ectasias. - Sigmoid adenoma Plan: -- Warfarin resumed -- Careful INR monitoring -- Miralax daily Problem List - Problems (1) Angiodysplasia of cecum Code(s): K55.20 - ANGIODYSPLASIA OF COLON WITHOUT HEMORRHAGE (2) Adenoma of sigmoid colon Code(s): D12.5 - BENIGN NEOPLASM OF SIGMOID COLON (3) Anemia Code(s): D64.9 - ANEMIA, UNSPECIFIED Qualifiers: Anemia type: unspecified type Qualified Code(s): D64.9 - Anemia, unspecified (4) Occult blood in stools Code(s): R19.5 - OTHER FECAL ABNORMALITIES (5) Colon polyp Code(s): K63.5 - POLYP OF COLON (6) Rheumatic aortic valve disease, unspecified Code(s): I06.9 - RHEUMATIC AORTIC VALVE DISEASE, UNSPECIFIED (7) Rheumatic disease of mitral valve Code(s): I05.9 - RHEUMATIC MITRAL VALVE DISEASE, UNSPECIFIED (8) History of appendectomy Code(s): Z90.49 - ACQUIRED ABSENCE OF OTHER SPECIFIED PARTS OF DIGESTIVE TRACT (9) History of ovarian cystectomy Code(s): Z98.890 - OTHER SPECIFIED POSTPROCEDURAL STATES; Z87.42 - PERSONAL HISTORY OF OTH DISEASES OF THE FEMALE GENITAL TRACT (10) Family history of ovarian cancer Code(s): Z80.41 - FAMILY HISTORY OF MALIGNANT NEOPLASM OF OVARY (11) Atrial fibrillation Code(s): I48.91 - UNSPECIFIED ATRIAL FIBRILLATION Qualifiers: Atrial fibrillation type: chronic (12) Mechanical heart valve present Code(s): Z95.2 - PRESENCE OF PROSTHETIC HEART VALVE (13) Syncope Code(s): R55 - SYNCOPE AND COLLAPSE Qualifiers: Syncope type: unspecified Qualified Code(s): R55 - Syncope and collapse
[2019-01-24] MEDS ORDERED: PT OWN MED DRAWER 7, Y5N ONE (17:30)
--- NOTE | 2019-01-24 18:21 | PN ---
Progress Note, Physician History of Present Illness: Pt w/o SOB, CP, palpitations, abd pain, no blood in stool or urine. - Current Medication List Current Medications: Active Medications Buspirone HCl (Buspar -) 5 mg PO BID [facility] Last Admin: 01/24/19 09:10 Dose: 5 mg Folic Acid (Folic Acid -) 1 mg PO DAILY [facility] Last Admin: 01/24/19 09:10 Dose: 1 mg Furosemide (Lasix Injection -) 40 mg IVPUSH BIDLASIX [facility] Last Admin: 01/24/19 13:04 Dose: 40 mg Heparin Sodium (Porcine) (Heparin -) 1,000 unit IVPUSH PRN PRN PRN Reason: Heparin Heparin Sodium (Porcine) (Heparin -) 5,000 unit IVPUSH PRN PRN PRN Reason: Heparin Heparin Sodium (Porcine) (Heparin -) 1,000 unit IVPUSH PRN PRN PRN Reason: Heparin Heparin Sodium (Porcine) (Heparin -) 5,000 unit IVPUSH PRN PRN PRN Reason: Heparin Heparin Sodium (Porcine) 25, (000 unit/ Sodium Chloride) 500 mls @ 16 mls/hr IV TITR [facility]; Protocol Last Titration: 01/24/19 07:49 Dose: 700 unit/hr, 14 mls/hr Iron Sucrose 200 mg/ Sodium (Chloride) 100 mls @ 100 mls/hr IVPB ONCE ONE Stop: 01/25/19 09:59 Metoprolol Succinate (Toprol Xl -) 50 mg PO BID [facility] Last Admin: 01/24/19 09:10 Dose: 50 mg Pantoprazole Sodium (Protonix -) 40 mg PO BID [facility] Last Admin: 01/24/19 09:10 Dose: 40 mg Polyethylene Glycol (Miralax (For Daily Use) -) 17 gm PO DAILY [facility] Senna (Senna -) 2 tab PO HS [facility] Last Admin: 01/23/19 21:23 Dose: Not Given Warfarin Sodium (Coumadin -) 3 mg PO DAILY@1800 [facility] Last Admin: 01/23/19 21:22 Dose: 3 mg - Objective Vital Signs: Vital Signs Temperature 97.6 F 01/24/19 12:00 Pulse Rate 87 01/24/19 16:00 Respiratory Rate 22 H 01/24/19 16:00 Blood Pressure 118/82 01/24/19 16:00 O2 Sat by Pulse Oximetry (%) 100 10/08/19 09:00 Constitutional: Yes: No Distress, Calm Cardiovascular: Yes: Regular Rate and Rhythm, S1, S2 Respiratory: Yes: Regular, Rales (crackle at L > R base) Gastrointestinal: Yes: Normal Bowel Sounds, Soft. No: Tenderness Edema: No Neurological: Yes: Alert, Oriented Labs: CBC, BMP 01/24/19 06:36 01/23/19 05:40 INR, PTT INR 0.95 (0.83-1.09) 01/24/19 06:36 Problem List - Problems (1) Elevation of cardiac enzymes Code(s): R74.8 - ABNORMAL LEVELS OF OTHER SERUM ENZYMES (2) Mechanical heart valve present Code(s): Z95.2 - PRESENCE OF PROSTHETIC HEART VALVE (3) Anemia Code(s): D64.9 - ANEMIA, UNSPECIFIED Qualifiers: Anemia type: unspecified type Qualified Code(s): D64.9 - Anemia, unspecified (4) Fall Code(s): W19.XXXA - UNSPECIFIED FALL, INITIAL ENCOUNTER (5) Atrial fibrillation Code(s): I48.91 - UNSPECIFIED ATRIAL FIBRILLATION Qualifiers: Atrial fibrillation type: chronic (6) Syncope Code(s): R55 - SYNCOPE AND COLLAPSE Qualifiers: Syncope type: unspecified Qualified Code(s): R55 - Syncope and collapse Assessment/Plan Admitted to monitor bed. Pt required PRBC Tx (4 units this admission). Cardio, GI consults are appreciated. S/p EGD, Colonoscopy (+ sigmoid polypectomy, + erosive antral gastritis, + cecal angiodysplasia). Pt with mechanical valves, now on IV Heparin drip; Warfarin was restarted; monitor H/H AM labs
[2019-01-24] MEDS: WARFARIN NA 3 MG TABLET PO SCH (18:26)
[2019-01-24] MEDS: SENNOSIDES 8.6MG TABLET (FP) PO SCH (21:59)
[2019-01-25] MEDS: FUROSEMIDE 40 MG/4 ML INJECTABLE VIAL IVPUSH SCH ×2 (06:17→14:58)
[2019-01-25 06:49] LABS: HEMATOCRIT 27.2 % (32.4-45.2); MCH 31.9 pg (25.7-33.7); MEAN CELL VOLUME 96.7 fl (80-96); MEAN PLT VOLUME 7.4 fl (7.5-11.1); PLATELET COUNT 215 K/MM3 (134-434); RBC 2.81 M/mm3 (3.60-5.2); RDW 19.9 % (11.6-15.6); RETICULOCYTES 2.81 % (0.5-1.5); WHITE BLOOD COUNT 3.9 K/mm3 (4.0-10.0)
[2019-01-25 06:59] LABS: INR 1.01 (0.83-1.09); PROTHROMBIN TIME (PATIENT) 11.9 SEC (9.7-13.0)
[2019-01-25 07:01] LABS: ACTIVATED PTT 82.4 SECONDS (25.2-36.5)
[2019-01-25] MEDS ORDERED: IRON SUCROSE INJECTION 200 MG in SODIUM CHLORIDE 90 ML IVPB ONE (09:00)
--- NOTE | 2019-01-25 09:38 | PN ---
Progress Note, Physician History of Present Illness: Pt w/o SOB, CP, palpitations, abd pain, no blood in stool or urine. - Current Medication List Current Medications: Active Medications Buspirone HCl (Buspar -) 5 mg PO BID [facility] Last Admin: 01/24/19 22:00 Dose: 5 mg Folic Acid (Folic Acid -) 1 mg PO DAILY [facility] Last Admin: 01/24/19 09:10 Dose: 1 mg Furosemide (Lasix Injection -) 40 mg IVPUSH BIDLASIX [facility] Last Admin: 01/25/19 06:17 Dose: 40 mg Heparin Sodium (Porcine) (Heparin -) 1,000 unit IVPUSH PRN PRN PRN Reason: Heparin Heparin Sodium (Porcine) (Heparin -) 5,000 unit IVPUSH PRN PRN PRN Reason: Heparin Heparin Sodium (Porcine) (Heparin -) 1,000 unit IVPUSH PRN PRN PRN Reason: Heparin Heparin Sodium (Porcine) (Heparin -) 5,000 unit IVPUSH PRN PRN PRN Reason: Heparin Heparin Sodium (Porcine) 25, (000 unit/ Sodium Chloride) 500 mls @ 16 mls/hr IV TITR [facility]; Protocol Last Titration: 01/25/19 08:00 Dose: 650 unit/hr, 13 mls/hr Iron Sucrose 200 mg/ Sodium (Chloride) 100 mls @ 100 mls/hr IVPB ONCE ONE Stop: 01/25/19 09:59 Last Admin: 01/25/19 09:06 Dose: 100 mls/hr Metoprolol Succinate (Toprol Xl -) 50 mg PO BID [facility] Last Admin: 01/24/19 22:00 Dose: 50 mg Pantoprazole Sodium (Protonix -) 40 mg PO BID [facility] Last Admin: 01/24/19 22:00 Dose: 40 mg Polyethylene Glycol (Miralax (For Daily Use) -) 17 gm PO DAILY [facility] Senna (Senna -) 2 tab PO HS [facility] Last Admin: 01/24/19 21:59 Dose: 2 tab Warfarin Sodium (Coumadin -) 3 mg PO DAILY@1800 [facility] Last Admin: 01/24/19 18:26 Dose: 3 mg - Objective Vital Signs: Vital Signs Temperature 97.6 F 01/25/19 04:00 Pulse Rate 75 01/25/19 04:00 Respiratory Rate 24 H 01/25/19 09:00 Blood Pressure 116/65 10/09/19 04:00 O2 Sat by Pulse Oximetry (%) 100 01/25/19 09:00 Constitutional: Yes: No Distress, Calm Cardiovascular: Yes: Regular Rate and Rhythm, Murmur, S1, S2 Respiratory: Yes: Regular, CTA Bilaterally Gastrointestinal: No: Tenderness Edema: No Neurological: Yes: Alert, Oriented Labs: CBC, BMP 01/25/19 05:45 01/23/19 05:40 INR, PTT INR 1.01 (0.83-1.09) 01/25/19 05:45 Problem List - Problems (1) Elevation of cardiac enzymes Code(s): R74.8 - ABNORMAL LEVELS OF OTHER SERUM ENZYMES (2) Mechanical heart valve present Code(s): Z95.2 - PRESENCE OF PROSTHETIC HEART VALVE (3) Anemia Code(s): D64.9 - ANEMIA, UNSPECIFIED Qualifiers: Anemia type: unspecified type Qualified Code(s): D64.9 - Anemia, unspecified (4) Fall Code(s): W19.XXXA - UNSPECIFIED FALL, INITIAL ENCOUNTER (5) Atrial fibrillation Code(s): I48.91 - UNSPECIFIED ATRIAL FIBRILLATION Qualifiers: Atrial fibrillation type: chronic (6) Syncope Code(s): R55 - SYNCOPE AND COLLAPSE Qualifiers: Syncope type: unspecified Qualified Code(s): R55 - Syncope and collapse Assessment/Plan Admitted to monitor bed. Pt required PRBC Tx (4 units this admission). H/H is trending down. To recall Heme Cardio, GI consults are appreciated. S/p EGD, Colonoscopy (+ sigmoid polypectomy, + erosive antral gastritis, + cecal angiodysplasia). Pt with mechanical valves, now on IV Heparin drip; Warfarin was restarted; monitor H/H. AM labs
--- NOTE | 2019-01-25 10:17 | PN ---
Progress Note (short form) - Note Progress Note: s: no chest pain, palps, dizziness, dyspnea Current Medications Buspirone HCl (Buspar -) 5 mg PO BID [facility] Last Admin: 01/24/19 22:00 Dose: 5 mg Folic Acid (Folic Acid -) 1 mg PO DAILY [facility] Last Admin: 01/24/19 09:10 Dose: 1 mg Furosemide (Lasix Injection -) 40 mg IVPUSH BIDLASIX [facility] Last Admin: 01/25/19 06:17 Dose: 40 mg Heparin Sodium (Porcine) (Heparin -) 1,000 unit IVPUSH PRN PRN PRN Reason: Heparin Heparin Sodium (Porcine) (Heparin -) 5,000 unit IVPUSH PRN PRN PRN Reason: Heparin Heparin Sodium (Porcine) (Heparin -) 1,000 unit IVPUSH PRN PRN PRN Reason: Heparin Heparin Sodium (Porcine) (Heparin -) 5,000 unit IVPUSH PRN PRN PRN Reason: Heparin Heparin Sodium (Porcine) 25, (000 unit/ Sodium Chloride) 500 mls @ 16 mls/hr IV TITR [facility]; Protocol Last Titration: 01/25/19 08:00 Dose: 650 unit/hr, 13 mls/hr Metoprolol Succinate (Toprol Xl -) 50 mg PO BID [facility] Last Admin: 01/24/19 22:00 Dose: 50 mg Pantoprazole Sodium (Protonix -) 40 mg PO BID [facility] Last Admin: 01/24/19 22:00 Dose: 40 mg Polyethylene Glycol (Miralax (For Daily Use) -) 17 gm PO DAILY [facility] Senna (Senna -) 2 tab PO HS [facility] Last Admin: 01/24/19 21:59 Dose: 2 tab Warfarin Sodium (Coumadin -) 3 mg PO DAILY@1800 [facility] Last Admin: 01/24/19 18:26 Dose: 3 mg Vital Signs Period Temp Pulse Resp BP Sys/Vergara Pulse Ox Last 24 Hr 97 F-98.1 F 55-93 14-24 102-134/54-82 100-100 Constitutional: Yes: Well Nourished, No Distress, Calm Cardiovascular: Yes: Pulse Irregular, S1, S2. No: Gallop, Murmur Respiratory: Yes: Regular, Rales (bases bilaterally). No: Accessory Muscle Use Extremities: No: Cold Edema: No Neurological: Yes: Alert, Oriented Psychiatric: No: Agitated Assessment/Plan echo 12/2018 tds, EF 45-50% mildly reduced LV function, RV not well visualized, LA/RA severely dilated, [facility] MVR/AVR well seated, mild MR, mild AR tele: AF, controlled Fall: - patient denies syncope, dizziness--fall mechanical in nature - CT head no bleed - on obligatory AC for [facility] heart valves - phys therapy Acute diastolic HF exacerbation: - BNP >9000, JVD on exam with congestive changes on CXR - echo mildly reduced LV function with stable MVR/AVR function - desaturated 01/22 requiring incr NC oxygen. CXR with bilateral congestive changes. - initially diuresed here with lasix 40 iv bid, changed to 40 po bid--changed back to IV lasix (40 qd) 01/22 - CXR 01/25 moderate stephie pleural effusions, cont lasix IV BID Elevated trop: - indeterminate range, flat trend. no ischemic changes on EKG - no suspicion of ACS h/o mechanical MVR, AVR: - goal INR 2.5-3.5 - INR <2.5 - bridging with heparin gtt resumed as per GI, coumadin resumed - echo shows stable valve function, outpatient follow up AFIB: - AC as above - cont metoprolol, rate stable Anemia: gastritis, sigmoid polyp removed, vascular ectasia: - counts downtrending here, transfused PRBC x 4 - s/p EGD/colo - heparin restarted, bridging to warfarin as above HLD - cont statin
[2019-01-25] MEDS: POLYETHYLENE GLYCOL 3350 119 GM BTL PO SCH (10:32)
[2019-01-25] MEDS: busPIRone HCL 5 MG TABLET PO SCH ×2 (10:58→21:19)
[2019-01-25] MEDS: FOLIC ACID 1 MG TABLET (FP) PO SCH (10:58)
[2019-01-25] MEDS: PANTOPRAZOLE 40 MG TABLET (FP) PO SCH ×2 (10:58→21:18)
[2019-01-25] MEDS: HEPARIN - 25,000 UNIT in SODIUM CHLORIDE 495 ML IV SCH (14:58)
[2019-01-25] MEDS: WARFARIN NA 3 MG TABLET PO SCH (18:36)
[2019-01-25] MEDS: SENNOSIDES 8.6MG TABLET (FP) PO SCH (21:19)
[2019-01-26 06:39] LABS: HEMATOCRIT 30.7 % (32.4-45.2); HEMOGLOBIN 9.9 GM/dL (10.7-15.3); MCHC 32.3 g/dl (32.0-36.0); MEAN PLT VOLUME 7.1 fl (7.5-11.1); PLATELET COUNT 242 K/MM3 (134-434); WHITE BLOOD COUNT 5.3 K/mm3 (4.0-10.0)
[2019-01-26] MEDS: FUROSEMIDE 40 MG/4 ML INJECTABLE VIAL IVPUSH SCH ×2 (06:48→14:10)
[2019-01-26 07:18] LABS: BLOOD UREA NITROGEN 24.5 mg/dL (7-18); CALCIUM 8.2 mg/dL (8.5-10.1); CREATININE 1.1 mg/dL (0.55-1.3); POTASSIUM 3.8 mmol/L (3.5-5.1)
[2019-01-26] MEDS: FOLIC ACID 1 MG TABLET (FP) PO SCH (10:22)
[2019-01-26] MEDS: PANTOPRAZOLE 40 MG TABLET (FP) PO SCH ×2 (10:22→21:06)
[2019-01-26] MEDS: busPIRone HCL 5 MG TABLET PO SCH ×2 (10:22→21:06)
[2019-01-26] MEDS: POLYETHYLENE GLYCOL 3350 119 GM BTL PO SCH (10:24)
--- NOTE | 2019-01-26 11:06 | PN ---
Progress Note (short form) - Note Progress Note: s: no chest pain, palps, dizziness. sob resolved. Current Medications Generic Name Dose Route Start Last Admin Trade Name Freq PRN Reason Stop Dose Admin Buspirone HCl 5 mg 01/08/19 22:00 01/26/19 10:22 Buspar - PO 5 mg BID [facility] Administration Folic Acid 1 mg 01/08/19 14:45 01/26/19 10:22 Folic Acid - PO 1 mg DAILY [facility] Administration Furosemide 40 mg 01/23/19 14:00 01/26/19 06:48 Lasix Injection - IVPUSH 40 mg BIDLASIX [facility] Administration Heparin Sodium (Porcine) 1,000 unit 01/18/19 10:00 Heparin - IVPUSH PRN PRN Heparin Heparin Sodium (Porcine) 5,000 unit 01/18/19 10:00 Heparin - IVPUSH PRN PRN Heparin Heparin Sodium (Porcine) 1,000 unit 01/21/19 09:14 Heparin - IVPUSH PRN PRN Heparin Heparin Sodium (Porcine) 5,000 unit 01/21/19 09:14 Heparin - IVPUSH PRN PRN Heparin Heparin Sodium (Porcine) 25, 500 mls @ 16 mls/hr 01/21/19 09:15 01/26/19 08: 25 000 unit/ Sodium Chloride IV 500 unit/hr TITR [facility] 10 mls/hr Titration Protocol 800 UNIT/HR Metoprolol Succinate 50 mg 01/08/19 12:00 01/26/19 10:31 Toprol Xl - PO 50 mg BID [facility] Administration Pantoprazole Sodium 40 mg 01/17/19 22:00 01/26/19 10:22 Protonix - PO 40 mg BID [facility] Administration Polyethylene Glycol 17 gm 01/25/19 10:00 01/26/19 10:24 Miralax (For Daily Use) - PO 17 grams DAILY [facility] Administration Senna 2 tab 01/08/19 22:00 01/25/19 21:19 Senna - PO Not Given HS [facility] Warfarin Sodium 3 mg 01/23/19 18:00 01/25/19 18:36 Coumadin - PO 3 mg DAILY@1800 [facility] Administration Vital Signs Period Temp Pulse Resp BP Sys/Vergara Pulse Ox Last 24 Hr 97.4 F-99.1 F 75-86 14-26 110-119/46-80 96-100 Constitutional: Yes: Well Nourished, No Distress, Calm Cardiovascular: Yes: Pulse Irregular ([facility] S2), S1, S2. No: Gallop, Murmur Respiratory: ctabl nl eff No: Accessory Muscle Use Extremities: No: Cold Edema: No Neurological: Yes: Alert, Oriented Psychiatric: No: Agitated no jaundice, diaphoresis CBC, BMP 01/26/19 05:30 01/26/19 05:30 Assessment/Plan EKG afib, no ischemic changes CXR: stephie pleural effusions, + congestive changes echo 12/2018 tds, EF 45-50% mildly reduced LV function, RV not well visualized, LA/RA severely dilated, [facility] MVR/AVR well seated, mild MR, mild AR tele: AF, good HR Fall: - patient denies syncope, dizziness--fall mechanical in nature - CT head no bleed - on obligatory AC for [facility] heart valves - phys therapy Acute diastolic HF exacerbation: - BNP >9000, JVD on exam with congestive changes on CXR - echo mildly reduced LV function with stable MVR/AVR function - desaturated 01/22 requiring incr NC oxygen. CXR with bilateral congestive changes. - initially diuresed here with lasix 40 iv bid, changed to 40 po bid--changed back to IV lasix (40 qd) 01/22 - CXR 01/25 moderate stephie pleural effusions, cont lasix IV BID for now Elevated trop: - indeterminate range, flat trend. no ischemic changes on EKG - no suspicion of ACS h/o mechanical MVR, AVR: - goal INR 2.5-3.5 - INR <2.5 - bridging with heparin gtt resumed as per GI, coumadin resumed - echo shows stable valve function, outpatient follow up AFIB: - AC as above - cont metoprolol, rate stable Anemia: gastritis, sigmoid polyp removed, vascular ectasia: - counts downtrending here, transfused PRBC x 4 - s/p EGD/colo - heparin restarted, bridging to warfarin as above HLD - cont statin
[2019-01-26 15:11] LABS: INR 1.28 (0.83-1.09); PROTHROMBIN TIME (PATIENT) 15.1 SEC (9.7-13.0)
[2019-01-26 15:13] LABS: ACTIVATED PTT 48.7 SECONDS (25.2-36.5)
[2019-01-26] MEDS: HEPARIN NA (PORCINE) 5,000 UNITS/ML 1ML VIAL IVPUSH PRN (15:30)
[2019-01-26] MEDS ORDERED: WARFARIN NA 2 MG TABLET (UD) PO ONE (18:00)
[2019-01-26] MEDS: WARFARIN NA 3 MG TABLET PO SCH (18:30)
--- NOTE | 2019-01-26 20:34 | PN ---
Progress Note (short form) - Note Progress Note: Hb stable on warfarin and heparin Problem List - Problems (1) Angiodysplasia of cecum Code(s): K55.20 - ANGIODYSPLASIA OF COLON WITHOUT HEMORRHAGE (2) Adenoma of sigmoid colon Code(s): D12.5 - BENIGN NEOPLASM OF SIGMOID COLON (3) Anemia Code(s): D64.9 - ANEMIA, UNSPECIFIED Qualifiers: Anemia type: unspecified type Qualified Code(s): D64.9 - Anemia, unspecified (4) Occult blood in stools Code(s): R19.5 - OTHER FECAL ABNORMALITIES (5) Colon polyp Code(s): K63.5 - POLYP OF COLON (6) Rheumatic aortic valve disease, unspecified Code(s): I06.9 - RHEUMATIC AORTIC VALVE DISEASE, UNSPECIFIED (7) Rheumatic disease of mitral valve Code(s): I05.9 - RHEUMATIC MITRAL VALVE DISEASE, UNSPECIFIED (8) History of appendectomy Code(s): Z90.49 - ACQUIRED ABSENCE OF OTHER SPECIFIED PARTS OF DIGESTIVE TRACT (9) History of ovarian cystectomy Code(s): Z98.890 - OTHER SPECIFIED POSTPROCEDURAL STATES; Z87.42 - PERSONAL HISTORY OF OTH DISEASES OF THE FEMALE GENITAL TRACT (10) Family history of ovarian cancer Code(s): Z80.41 - FAMILY HISTORY OF MALIGNANT NEOPLASM OF OVARY (11) Atrial fibrillation Code(s): I48.91 - UNSPECIFIED ATRIAL FIBRILLATION Qualifiers: Atrial fibrillation type: chronic (12) Mechanical heart valve present Code(s): Z95.2 - PRESENCE OF PROSTHETIC HEART VALVE (13) Syncope Code(s): R55 - SYNCOPE AND COLLAPSE Qualifiers: Syncope type: unspecified Qualified Code(s): R55 - Syncope and collapse
[2019-01-26] MEDS: SENNOSIDES 8.6MG TABLET (FP) PO SCH (21:06)
[2019-01-26 23:36] LABS: ACTIVATED PTT 285.8 SECONDS (25.2-36.5)
--- NOTE | 2019-01-26 23:50 | PN ---
Progress Note, Physician History of Present Illness: Pt w/o SOB, CP, palpitations, abd pain, no blood in stool or urine. - Current Medication List Current Medications: Active Medications Buspirone HCl (Buspar -) 5 mg PO BID [facility] Last Admin: 01/26/19 21:06 Dose: 5 mg Folic Acid (Folic Acid -) 1 mg PO DAILY [facility] Last Admin: 01/26/19 10:22 Dose: 1 mg Furosemide (Lasix Injection -) 40 mg IVPUSH BIDLASIX [facility] Last Admin: 01/26/19 14:10 Dose: 40 mg Heparin Sodium (Porcine) (Heparin -) 1,000 unit IVPUSH PRN PRN PRN Reason: Heparin Last Admin: 01/26/19 15:30 Dose: 1,000 unit Heparin Sodium (Porcine) (Heparin -) 5,000 unit IVPUSH PRN PRN PRN Reason: Heparin Heparin Sodium (Porcine) (Heparin -) 1,000 unit IVPUSH PRN PRN PRN Reason: Heparin Heparin Sodium (Porcine) (Heparin -) 5,000 unit IVPUSH PRN PRN PRN Reason: Heparin Heparin Sodium (Porcine) 25, (000 unit/ Sodium Chloride) 500 mls @ 16 mls/hr IV TITR [facility]; Protocol Last Titration: 01/26/19 15:30 Dose: 600 unit/hr, 12 mls/hr Metoprolol Succinate (Toprol Xl -) 50 mg PO BID [facility] Last Admin: 01/26/19 21:06 Dose: 50 mg Pantoprazole Sodium (Protonix -) 40 mg PO BID [facility] Last Admin: 01/26/19 21:06 Dose: 40 mg Polyethylene Glycol (Miralax (For Daily Use) -) 17 gm PO DAILY [facility] Last Admin: 01/26/19 10:24 Dose: 17 grams Senna (Senna -) 2 tab PO HS [facility] Last Admin: 01/26/19 21:06 Dose: 2 tab Warfarin Sodium (Coumadin -) 3 mg PO DAILY@1800 [facility] Last Admin: 01/26/19 18:30 Dose: 3 mg - Objective Vital Signs: Vital Signs Temperature 98.0 F 01/26/19 20:34 Pulse Rate 100 H 01/26/19 17:00 Respiratory Rate 24 H 01/26/19 17:00 Blood Pressure 142/82 01/26/19 17:00 O2 Sat by Pulse Oximetry (%) 100 01/26/19 09:00 Constitutional: Yes: No Distress, Calm Cardiovascular: Yes: Regular Rate and Rhythm, S1, S2 Respiratory: Yes: Regular, Other (crackles on R > L) Gastrointestinal: Yes: Normal Bowel Sounds, Soft, Tenderness Edema: No Neurological: Yes: Alert, Oriented Labs: CBC, BMP 01/26/19 05:30 01/26/19 05:30 INR, PTT INR 1.28 (0.83-1.09) H 01/26/19 14:00 Problem List - Problems (1) Elevation of cardiac enzymes Code(s): R74.8 - ABNORMAL LEVELS OF OTHER SERUM ENZYMES (2) Mechanical heart valve present Code(s): Z95.2 - PRESENCE OF PROSTHETIC HEART VALVE (3) Anemia Code(s): D64.9 - ANEMIA, UNSPECIFIED Qualifiers: Anemia type: unspecified type Qualified Code(s): D64.9 - Anemia, unspecified (4) Fall Code(s): W19.XXXA - UNSPECIFIED FALL, INITIAL ENCOUNTER (5) Atrial fibrillation Code(s): I48.91 - UNSPECIFIED ATRIAL FIBRILLATION Qualifiers: Atrial fibrillation type: chronic (6) Syncope Code(s): R55 - SYNCOPE AND COLLAPSE Qualifiers: Syncope type: unspecified Qualified Code(s): R55 - Syncope and collapse Assessment/Plan Admitted to monitor bed. Pt required PRBC Tx (4 units this admission). Cardio, GI consults are appreciated. S/p EGD, Colonoscopy (+ sigmoid polypectomy, + erosive antral gastritis, + cecal angiodysplasia). Pt with mechanical valves, now on IV Heparin drip; Warfarin was restarted; extra Warfarin tonight Monitor H/H. AM labs
[2019-01-27] MEDS: FUROSEMIDE 40 MG/4 ML INJECTABLE VIAL IVPUSH SCH ×2 (06:03→15:18)
--- NOTE | 2019-01-27 07:08 | PN ---
Progress Note, Physician Chief Complaint: sitting in chair Feels well Weight is up----> reliable?? - Current Medication List Current Medications: Active Medications Buspirone HCl (Buspar -) 5 mg PO BID [facility] Last Admin: 01/26/19 21:06 Dose: 5 mg Folic Acid (Folic Acid -) 1 mg PO DAILY [facility] Last Admin: 01/26/19 10:22 Dose: 1 mg Furosemide (Lasix Injection -) 40 mg IVPUSH BIDLASIX [facility] Last Admin: 01/27/19 06:03 Dose: 40 mg Heparin Sodium (Porcine) (Heparin -) 1,000 unit IVPUSH PRN PRN PRN Reason: Heparin Last Admin: 01/26/19 15:30 Dose: 1,000 unit Heparin Sodium (Porcine) (Heparin -) 5,000 unit IVPUSH PRN PRN PRN Reason: Heparin Heparin Sodium (Porcine) (Heparin -) 1,000 unit IVPUSH PRN PRN PRN Reason: Heparin Heparin Sodium (Porcine) (Heparin -) 5,000 unit IVPUSH PRN PRN PRN Reason: Heparin Heparin Sodium (Porcine) 25, (000 unit/ Sodium Chloride) 500 mls @ 16 mls/hr IV TITR [facility]; Protocol Last Titration: 01/27/19 01:20 Dose: 300 unit/hr, 6 mls/hr Metoprolol Succinate (Toprol Xl -) 50 mg PO BID [facility] Last Admin: 01/26/19 21:06 Dose: 50 mg Pantoprazole Sodium (Protonix -) 40 mg PO BID [facility] Last Admin: 01/26/19 21:06 Dose: 40 mg Polyethylene Glycol (Miralax (For Daily Use) -) 17 gm PO DAILY [facility] Last Admin: 01/26/19 10:24 Dose: 17 grams Senna (Senna -) 2 tab PO HS [facility] Last Admin: 01/26/19 21:06 Dose: 2 tab Warfarin Sodium (Coumadin -) 3 mg PO DAILY@1800 [facility] Last Admin: 01/26/19 18:30 Dose: 3 mg - Objective Vital Signs: Vital Signs Temperature 97.2 F L 01/27/19 02:00 Pulse Rate 76 01/27/19 02:00 Respiratory Rate 18 01/27/19 02:00 Blood Pressure 140/71 01/27/19 02:00 O2 Sat by Pulse Oximetry (%) 100 01/26/19 21:00 Constitutional: Yes: No Distress Cardiovascular: Yes: Pulse Irregular Respiratory: Yes: Other (rales at bases/) Gastrointestinal: Yes: Soft (NT) Edema: No Neurological: Yes: Alert, Oriented Labs: CBC, BMP 01/26/19 05:30 INR, PTT INR 1.28 (0.83-1.09) H 01/26/19 14:00 Laboratory Tests 01/26/19 01/26/19 01/27/19 05:30 22:10 05:52 WBC 3.7 L Hgb 9.7 L Plt Count 236 INR Pending PTT (Actin FS) 285.8 H Sodium 138 Potassium 3.8 BUN 24.5 H Creatinine 1.1 Calcium 8.2 L 01/27/19 05:52 WBC Hgb Plt Count INR PTT (Actin FS) Pending Sodium Potassium BUN Creatinine Calcium - ....Imaging EKG: Image Reviewed Assessment/Plan Assessment/Plan EKG afib, no ischemic changes CXR: stephie pleural effusions, + congestive changes echo 12/2018 tds, EF 45-50% mildly reduced LV function, RV not well visualized, LA/RA severely dilated, [facility] MVR/AVR well seated, mild MR, mild AR tele: AF, good HR Fall: - patient denies syncope, dizziness--fall mechanical in nature - CT head no bleed - on obligatory AC for [facility] heart valves - phys therapy Acute diastolic HF exacerbation: - BNP >9000, JVD on exam with congestive changes on CXR - echo mildly reduced LV function with stable MVR/AVR function - desaturated 01/22 requiring incr NC oxygen. CXR with bilateral congestive changes. - initially diuresed here with lasix 40 iv bid, changed to 40 po bid--changed back to IV lasix (40 qd) 01/22, repeat CXR today Elevated trop: - indeterminate range, flat trend. no ischemic changes on EKG - no suspicion of ACS h/o mechanical MVR, AVR: - goal INR 2.5-3.5 - INR <2.5 - bridging with heparin gtt resumed as per GI, coumadin resumed - echo shows stable valve function, outpatient follow up AFIB: - AC as above - cont metoprolol, rate stable Anemia: gastritis, sigmoid polyp removed, vascular ectasia: - counts downtrending here, transfused PRBC x 4 - s/p EGD/colo - heparin restarted, bridging to warfarin as above HLD - cont statin
[2019-01-27 07:13] LABS: HEMOGLOBIN 9.7 GM/dL (10.7-15.3); MCH 31.5 pg (25.7-33.7); MCHC 32.2 g/dl (32.0-36.0); MEAN CELL VOLUME 97.9 fl (80-96); MEAN PLT VOLUME 7.4 fl (7.5-11.1); PLATELET COUNT 236 K/MM3 (134-434); RBC 3.06 M/mm3 (3.60-5.2); RDW 19.6 % (11.6-15.6); WHITE BLOOD COUNT 3.7 K/mm3 (4.0-10.0)
--- NOTE | 2019-01-27 09:27 | PN ---
Progress Note, Physician History of Present Illness: Pt is having breakfast, tolerating food well. Pt w/o SOB, CP, palpitations, abd pain, no blood in stool or urine. - Current Medication List Current Medications: Active Medications Buspirone HCl (Buspar -) 5 mg PO BID [facility] Last Admin: 01/26/19 21:06 Dose: 5 mg Folic Acid (Folic Acid -) 1 mg PO DAILY [facility] Last Admin: 01/26/19 10:22 Dose: 1 mg Furosemide (Lasix Injection -) 40 mg IVPUSH BIDLASIX [facility] Last Admin: 01/27/19 06:03 Dose: 40 mg Heparin Sodium (Porcine) (Heparin -) 1,000 unit IVPUSH PRN PRN PRN Reason: Heparin Last Admin: 01/26/19 15:30 Dose: 1,000 unit Heparin Sodium (Porcine) (Heparin -) 5,000 unit IVPUSH PRN PRN PRN Reason: Heparin Heparin Sodium (Porcine) (Heparin -) 1,000 unit IVPUSH PRN PRN PRN Reason: Heparin Heparin Sodium (Porcine) (Heparin -) 5,000 unit IVPUSH PRN PRN PRN Reason: Heparin Heparin Sodium (Porcine) 25, (000 unit/ Sodium Chloride) 500 mls @ 16 mls/hr IV TITR [facility]; Protocol Last Titration: 01/27/19 01:20 Dose: 300 unit/hr, 6 mls/hr Metoprolol Succinate (Toprol Xl -) 50 mg PO BID [facility] Last Admin: 01/26/19 21:06 Dose: 50 mg Pantoprazole Sodium (Protonix -) 40 mg PO BID [facility] Last Admin: 01/26/19 21:06 Dose: 40 mg Polyethylene Glycol (Miralax (For Daily Use) -) 17 gm PO DAILY [facility] Last Admin: 01/26/19 10:24 Dose: 17 grams Senna (Senna -) 2 tab PO HS [facility] Last Admin: 01/26/19 21:06 Dose: 2 tab Warfarin Sodium (Coumadin -) 3 mg PO DAILY@1800 [facility] Last Admin: 01/26/19 18:30 Dose: 3 mg - Objective Vital Signs: Vital Signs Temperature 97.4 F L 01/27/19 06:00 Pulse Rate 76 01/27/19 02:00 Respiratory Rate 18 01/27/19 02:00 Blood Pressure 118/70 01/27/19 06:00 O2 Sat by Pulse Oximetry (%) 100 01/26/19 21:00 Constitutional: Yes: No Distress, Calm Cardiovascular: Yes: Regular Rate and Rhythm, Murmur, S1, S2 Respiratory: Yes: Regular, CTA Bilaterally. No: Rales Gastrointestinal: Yes: Normal Bowel Sounds, Soft. No: Tenderness Edema: No Neurological: Yes: Alert, Oriented Labs: CBC, BMP 01/27/19 05:52 01/26/19 05:30 INR, PTT INR 1.28 (0.83-1.09) H 01/26/19 14:00 Problem List - Problems (1) Elevation of cardiac enzymes Code(s): R74.8 - ABNORMAL LEVELS OF OTHER SERUM ENZYMES (2) Mechanical heart valve present Code(s): Z95.2 - PRESENCE OF PROSTHETIC HEART VALVE (3) Anemia Code(s): D64.9 - ANEMIA, UNSPECIFIED Qualifiers: Anemia type: unspecified type Qualified Code(s): D64.9 - Anemia, unspecified (4) Fall Code(s): W19.XXXA - UNSPECIFIED FALL, INITIAL ENCOUNTER (5) Atrial fibrillation Code(s): I48.91 - UNSPECIFIED ATRIAL FIBRILLATION Qualifiers: Atrial fibrillation type: chronic (6) Syncope Code(s): R55 - SYNCOPE AND COLLAPSE Qualifiers: Syncope type: unspecified Qualified Code(s): R55 - Syncope and collapse Assessment/Plan Admitted to monitor bed. Pt required PRBC Tx (4 units this admission). Cardio, GI consults are appreciated. S/p EGD, Colonoscopy (+ sigmoid polypectomy, + erosive antral gastritis, + cecal angiodysplasia). Pt with mechanical valves, now on IV Heparin drip; Warfarin was restarted; extra Warfarin tonight H/H stablr now. To f/u INR. To f/u with PT. DC planning pending therapeutic INR
[2019-01-27 09:40] LABS: INR 1.36 (0.83-1.09); PROTHROMBIN TIME (PATIENT) 16.1 SEC (9.7-13.0)
[2019-01-27] MEDS: busPIRone HCL 5 MG TABLET PO SCH ×2 (10:12→21:23)
[2019-01-27] MEDS: FOLIC ACID 1 MG TABLET (FP) PO SCH (10:13)
[2019-01-27] MEDS: PANTOPRAZOLE 40 MG TABLET (FP) PO SCH ×2 (10:13→21:23)
[2019-01-27] MEDS: POLYETHYLENE GLYCOL 3350 119 GM BTL PO SCH (10:13)
[2019-01-27 10:46] LABS: INR 1.59 (0.83-1.09); PROTHROMBIN TIME (PATIENT) 18.8 SEC (9.7-13.0)
[2019-01-27 10:49] LABS: ACTIVATED PTT 39.3 SECONDS (25.2-36.5)
--- NOTE | 2019-01-27 15:44 | PN.GI ---
GI Progress Note Subjective: GI NOte: The Hb is fortunately stable. NO overt bleeding on warfarin - Objective Vital Signs: Vital Signs Temperature 98 F 01/27/19 12:00 Pulse Rate 81 01/27/19 12:00 Respiratory Rate 20 01/27/19 12:00 Blood Pressure 133/82 01/27/19 12:00 O2 Sat by Pulse Oximetry (%) 100 01/27/19 09:00 Laboratory Tests 01/22/19 01/24/19 01/25/19 05:30 06:36 05:45 Hgb 10.0 L 9.4 L 9.0 L Retic Count 2.81 H D 01/26/19 01/27/19 05:30 05:52 Hgb 9.9 L 9.7 L Retic Count Constitutional: Calm ...Auscultate: Yes: Normoactive Bowel Sounds ...Palpate: Yes: Soft, Other (nontender) Labs: CBC, BMP 01/27/19 05:52 01/26/19 05:30 INR, PTT INR 1.59 (0.83-1.09) H 01/27/19 09:42 Assessment/Plan Assessment: - Transfusion requiring anemia and occult GI bleeding likely due to vascular ectasias. - Sigmoid adenoma Plan: -- Warfarin resumed -- Careful INR monitoring -- Miralax daily Problem List - Problems (1) Angiodysplasia of cecum Code(s): K55.20 - ANGIODYSPLASIA OF COLON WITHOUT HEMORRHAGE (2) Adenoma of sigmoid colon Code(s): D12.5 - BENIGN NEOPLASM OF SIGMOID COLON (3) Anemia Code(s): D64.9 - ANEMIA, UNSPECIFIED Qualifiers: Anemia type: unspecified type Qualified Code(s): D64.9 - Anemia, unspecified (4) Occult blood in stools Code(s): R19.5 - OTHER FECAL ABNORMALITIES (5) Colon polyp Code(s): K63.5 - POLYP OF COLON (6) Rheumatic aortic valve disease, unspecified Code(s): I06.9 - RHEUMATIC AORTIC VALVE DISEASE, UNSPECIFIED (7) Rheumatic disease of mitral valve Code(s): I05.9 - RHEUMATIC MITRAL VALVE DISEASE, UNSPECIFIED (8) History of appendectomy Code(s): Z90.49 - ACQUIRED ABSENCE OF OTHER SPECIFIED PARTS OF DIGESTIVE TRACT (9) History of ovarian cystectomy Code(s): Z98.890 - OTHER SPECIFIED POSTPROCEDURAL STATES; Z87.42 - PERSONAL HISTORY OF OTH DISEASES OF THE FEMALE GENITAL TRACT (10) Family history of ovarian cancer Code(s): Z80.41 - FAMILY HISTORY OF MALIGNANT NEOPLASM OF OVARY (11) Atrial fibrillation Code(s): I48.91 - UNSPECIFIED ATRIAL FIBRILLATION Qualifiers: Atrial fibrillation type: chronic (12) Mechanical heart valve present Code(s): Z95.2 - PRESENCE OF PROSTHETIC HEART VALVE (13) Syncope Code(s): R55 - SYNCOPE AND COLLAPSE Qualifiers: Syncope type: unspecified Qualified Code(s): R55 - Syncope and collapse
[2019-01-27] MEDS: WARFARIN NA 3 MG TABLET PO SCH (17:20)
[2019-01-27] MEDS ORDERED: WARFARIN NA 2 MG TABLET (UD) PO ONE (18:00)
[2019-01-27] MEDS: SENNOSIDES 8.6MG TABLET (FP) PO SCH (21:23)
[2019-01-27] MEDS: HEPARIN - 25,000 UNIT in SODIUM CHLORIDE 495 ML IV SCH (21:30)
[2019-01-28] MEDS: FUROSEMIDE 40 MG/4 ML INJECTABLE VIAL IVPUSH SCH ×2 (06:52→15:44)
[2019-01-28 07:48] LABS: HEMATOCRIT 28.4 % (32.4-45.2); HEMOGLOBIN 9.3 GM/dL (10.7-15.3); MCHC 32.9 g/dl (32.0-36.0); MEAN CELL VOLUME 97.2 fl (80-96); MEAN PLT VOLUME 7.6 fl (7.5-11.1); PLATELET COUNT 228 K/MM3 (134-434); RBC 2.92 M/mm3 (3.60-5.2); RDW 20.1 % (11.6-15.6); WHITE BLOOD COUNT 3.5 K/mm3 (4.0-10.0)
[2019-01-28 08:07] LABS: INR 2.12 (0.83-1.09); PROTHROMBIN TIME (PATIENT) 25.2 SEC (9.7-13.0)
[2019-01-28 08:08] LABS: BLOOD UREA NITROGEN 25.3 mg/dL (7-18); CALCIUM 8.2 mg/dL (8.5-10.1); CREATININE 1.1 mg/dL (0.55-1.3); POTASSIUM 3.6 mmol/L (3.5-5.1)
--- NOTE | 2019-01-28 10:02 | PN ---
Progress Note, Physician Chief Complaint: OOB to chair NAD INR 2.1 no new c/o - Current Medication List Current Medications: Active Medications Buspirone HCl (Buspar -) 5 mg PO BID [facility] Last Admin: 01/27/19 21:23 Dose: 5 mg Folic Acid (Folic Acid -) 1 mg PO DAILY [facility] Last Admin: 01/27/19 10:13 Dose: 1 mg Furosemide (Lasix Injection -) 40 mg IVPUSH BIDLASIX [facility] Last Admin: 01/28/19 06:52 Dose: 40 mg Heparin Sodium (Porcine) (Heparin -) 1,000 unit IVPUSH PRN PRN PRN Reason: Heparin Last Admin: 01/26/19 15:30 Dose: 1,000 unit Heparin Sodium (Porcine) (Heparin -) 5,000 unit IVPUSH PRN PRN PRN Reason: Heparin Last Admin: 01/27/19 21:23 Dose: 5,000 unit Heparin Sodium (Porcine) (Heparin -) 1,000 unit IVPUSH PRN PRN PRN Reason: Heparin Heparin Sodium (Porcine) (Heparin -) 5,000 unit IVPUSH PRN PRN PRN Reason: Heparin Heparin Sodium (Porcine) 25, (000 unit/ Sodium Chloride) 500 mls @ 16 mls/hr IV TITR [facility]; Protocol Last Admin: 01/27/19 21:30 Dose: 450 unit/hr, 9 mls/hr Metoprolol Succinate (Toprol Xl -) 50 mg PO BID [facility] Last Admin: 01/27/19 21:23 Dose: 50 mg Pantoprazole Sodium (Protonix -) 40 mg PO BID [facility] Last Admin: 01/27/19 21:23 Dose: 40 mg Polyethylene Glycol (Miralax (For Daily Use) -) 17 gm PO DAILY [facility] Last Admin: 01/27/19 10:13 Dose: 17 grams Senna (Senna -) 2 tab PO HS [facility] Last Admin: 01/27/19 21:23 Dose: 2 tab Warfarin Sodium (Coumadin -) 3 mg PO DAILY@1800 [facility] Last Admin: 01/27/19 17:20 Dose: 3 mg - Objective Vital Signs: Vital Signs Temperature 97.8 F 01/28/19 06:00 Pulse Rate 80 01/28/19 06:00 Respiratory Rate 22 H 01/28/19 06:00 Blood Pressure 114/68 01/28/19 06:00 O2 Sat by Pulse Oximetry (%) 100 01/27/19 20:54 Constitutional: Yes: No Distress, Calm Eyes: Yes: Conjunctiva Clear HENT: Yes: Atraumatic Neck: Yes: Supple Cardiovascular: No: Regular Rate and Rhythm Respiratory: Yes: Diminished Gastrointestinal: Yes: Soft. No: Tenderness Genitourinary: No: Hematuria Musculoskeletal: No: Joint Stiffness, Joint Swelling Extremities: No: Cold, Cool Edema: No Integumentary: No: Rash, Venous Stasis Changes Neurological: Yes: WNL, Alert, Oriented ...Motor Strength: WNL Psychiatric: Yes: WNL, Alert, Oriented. No: Agitated, Suicidal Ideation Labs: CBC, BMP 01/28/19 05:53 01/28/19 05:53 INR, PTT INR 2.12 (0.83-1.09) H 01/28/19 05:53 - ....Imaging Other: Report Reviewed Assessment/Plan Leena Oliva is a 83yo F h/o HTN, a fib, valve replacement (20yrs ago) on coumadin and 3L NC baseline presenting with head trauma s/p fall. s/p fall at [facility] on AC / mec Valve; found to be anemic also r/o GI Bleed telemetry monitoring IV heparin, po coumadin, INR 2.5-3.5 cardio and GI f/u s/p EGD falls decubs PFX CM eval for DC planning back to [facility] when INR>2.5 d/w pt and staff
[2019-01-28] MEDS: busPIRone HCL 5 MG TABLET PO SCH ×2 (11:23→21:58)
[2019-01-28] MEDS: PANTOPRAZOLE 40 MG TABLET (FP) PO SCH ×2 (11:23→21:57)
[2019-01-28] MEDS: FOLIC ACID 1 MG TABLET (FP) PO SCH (11:23)
[2019-01-28] MEDS: POLYETHYLENE GLYCOL 3350 119 GM BTL PO SCH ×2 (11:24→12:08)
[2019-01-28] MEDS: HEPARIN - 25,000 UNIT in SODIUM CHLORIDE 495 ML IV SCH (11:24)
--- NOTE | 2019-01-28 11:57 | PN ---
Progress Note (short form) - Note Progress Note: s: no chest pain, palps, dizziness, dyspnea. Current Medications Buspirone HCl (Buspar -) 5 mg PO BID [facility] Last Admin: 01/28/19 11:23 Dose: 5 mg Folic Acid (Folic Acid -) 1 mg PO DAILY [facility] Last Admin: 01/28/19 11:23 Dose: 1 mg Furosemide (Lasix Injection -) 40 mg IVPUSH BIDLASIX [facility] Last Admin: 01/28/19 06:52 Dose: 40 mg Heparin Sodium (Porcine) (Heparin -) 1,000 unit IVPUSH PRN PRN PRN Reason: Heparin Last Admin: 01/26/19 15:30 Dose: 1,000 unit Heparin Sodium (Porcine) (Heparin -) 5,000 unit IVPUSH PRN PRN PRN Reason: Heparin Last Admin: 01/27/19 21:23 Dose: 5,000 unit Heparin Sodium (Porcine) (Heparin -) 1,000 unit IVPUSH PRN PRN PRN Reason: Heparin Heparin Sodium (Porcine) (Heparin -) 5,000 unit IVPUSH PRN PRN PRN Reason: Heparin Heparin Sodium (Porcine) 25, (000 unit/ Sodium Chloride) 500 mls @ 16 mls/hr IV TITR [facility]; Protocol Last Admin: 01/28/19 11:24 Dose: 450 unit/hr, 9 mls/hr Metoprolol Succinate (Toprol Xl -) 50 mg PO BID [facility] Last Admin: 01/28/19 11:24 Dose: 50 mg Pantoprazole Sodium (Protonix -) 40 mg PO BID [facility] Last Admin: 01/28/19 11:23 Dose: 40 mg Polyethylene Glycol (Miralax (For Daily Use) -) 17 gm PO DAILY [facility] Last Admin: 01/28/19 11:24 Dose: 17 grams Senna (Senna -) 2 tab PO HS [facility] Last Admin: 01/27/19 21:23 Dose: 2 tab Warfarin Sodium (Coumadin -) 3 mg PO DAILY@1800 [facility] Last Admin: 01/27/19 17:20 Dose: 3 mg Vital Signs Period Temp Pulse Resp BP Sys/Vergara Pulse Ox Last 24 Hr 97.8 F-98.5 F 80-102 18-24 101-133/63-82 100-100 Constitutional: Yes: No Distress Cardiovascular: Yes: Pulse Irregular Respiratory: Yes: Other (rales at bases/) Gastrointestinal: Yes: Soft (NT) Edema: No Neurological: Yes: Alert, Oriented no jaundice, diaphoresis not agitated EKG: Image Reviewed Assessment/Plan EKG afib, no ischemic changes CXR: stephie pleural effusions, + congestive changes echo 12/2018 tds, EF 45-50% mildly reduced LV function, RV not well visualized, LA/RA severely dilated, [facility] MVR/AVR well seated, mild MR, mild AR tele: AF, good HR Fall: - patient denies syncope, dizziness--fall mechanical in nature - CT head no bleed - on obligatory AC for [facility] heart valves - phys therapy Acute diastolic HF exacerbation: - BNP >9000, JVD on exam with congestive changes on CXR - echo mildly reduced LV function with stable MVR/AVR function - desaturated 01/22 requiring incr NC oxygen. CXR with bilateral congestive changes. - initially diuresed here with lasix 40 iv bid, changed to 40 po bid--changed back to IV lasix (40 qd) 01/22 - remains on lasix 40 mg IV BID - CXR 01/27 shows stephie pleural effusions, congestive changes, continue lasix Elevated trop: - indeterminate range, flat trend. no ischemic changes on EKG - no suspicion of ACS h/o mechanical MVR, AVR: - goal INR 2.5-3.5 - INR <2.5 - bridging with heparin gtt resumed as per GI, coumadin resumed - echo shows stable valve function, outpatient follow up AFIB: - AC as above - cont metoprolol, rate stable Anemia: gastritis, sigmoid polyp removed, vascular ectasia: - counts downtrending here, transfused PRBC x 4 - s/p EGD/colo - heparin restarted, bridging to warfarin as above HLD - cont statin
[2019-01-28] MEDS: WARFARIN NA 3 MG TABLET PO SCH (17:30)
--- NOTE | 2019-01-28 19:28 | PN ---
Progress Note (short form) - Note Progress Note: Asked to comment on anemia prior to discharge Pt denies SOB, chest pain, lightheadedness There was no e/o nutritional deficiency on this admission (b12, folate, iron studies) Pt had acute blood loss 2/2 GI bleeding Suggest repeat CBC as outpatient and, if anemia persists, may need further w/u such as SPEP/UPEP
[2019-01-28] MEDS: SENNOSIDES 8.6MG TABLET (FP) PO SCH (21:57)
[2019-01-29] MEDS: FUROSEMIDE 40 MG/4 ML INJECTABLE VIAL IVPUSH SCH ×2 (06:02→13:32)
[2019-01-29 08:12] LABS: INR 2.51 (0.83-1.09); PROTHROMBIN TIME (PATIENT) 29.9 SEC (9.7-13.0)
[2019-01-29 08:15] LABS: ACTIVATED PTT 46.4 SECONDS (25.2-36.5)
[2019-01-29] MEDS: HEPARIN NA (PORCINE) 5,000 UNITS/ML 1ML VIAL IVPUSH PRN (08:58)
[2019-01-29] MEDS: busPIRone HCL 5 MG TABLET PO SCH ×2 (09:01→21:05)
[2019-01-29] MEDS: FOLIC ACID 1 MG TABLET (FP) PO SCH (09:01)
[2019-01-29] MEDS: PANTOPRAZOLE 40 MG TABLET (FP) PO SCH ×2 (09:01→21:05)
--- NOTE | 2019-01-29 10:00 | PN ---
Progress Note, Physician Chief Complaint: oob to chair NAD VSS INR 2.5 - Current Medication List Current Medications: Active Medications Buspirone HCl (Buspar -) 5 mg PO BID [facility] Last Admin: 01/29/19 09:01 Dose: 5 mg Folic Acid (Folic Acid -) 1 mg PO DAILY [facility] Last Admin: 01/29/19 09:01 Dose: 1 mg Furosemide (Lasix Injection -) 40 mg IVPUSH BIDLASIX [facility] Last Admin: 01/29/19 06:02 Dose: 40 mg Metoprolol Succinate (Toprol Xl -) 50 mg PO BID [facility] Last Admin: 01/29/19 09:01 Dose: 50 mg Pantoprazole Sodium (Protonix -) 40 mg PO BID [facility] Last Admin: 01/29/19 09:01 Dose: 40 mg Polyethylene Glycol (Miralax (For Daily Use) -) 17 gm PO DAILY [facility] Last Admin: 01/28/19 12:08 Dose: Not Given Senna (Senna -) 2 tab PO HS [facility] Last Admin: 01/28/19 21:57 Dose: 2 tab Warfarin Sodium (Coumadin -) 3 mg PO DAILY@1800 [facility] Last Admin: 01/28/19 17:30 Dose: 3 mg - Objective Vital Signs: Vital Signs Temperature 98.0 F 01/29/19 06:01 Pulse Rate 92 H 01/29/19 09:00 Respiratory Rate 18 01/29/19 09:00 Blood Pressure 111/68 01/29/19 09:00 O2 Sat by Pulse Oximetry (%) 100 01/29/19 09:00 Constitutional: Yes: No Distress, Calm Eyes: Yes: Conjunctiva Clear HENT: Yes: Atraumatic Neck: Yes: Supple Cardiovascular: No: Regular Rate and Rhythm Respiratory: Yes: Diminished Gastrointestinal: Yes: Soft. No: Tenderness Genitourinary: No: CVA Tenderness - Left, CVA Tenderness - Right Musculoskeletal: No: Joint Stiffness, Joint Swelling Extremities: No: Cold, Cool Edema: No Integumentary: No: Rash, Venous Stasis Changes Neurological: Yes: WNL, Alert, Oriented ...Motor Strength: WNL Psychiatric: Yes: WNL, Alert, Oriented. No: Agitated, Suicidal Ideation Labs: CBC, BMP 01/28/19 05:53 01/28/19 05:53 INR, PTT INR 2.51 (0.83-1.09) H 01/29/19 06:52 - ....Imaging Other: Report Reviewed Assessment/Plan Leena Oliva is a 83yo F h/o HTN, a fib, valve replacement (20yrs ago) on coumadin and 3L NC baseline presenting with head trauma s/p fall. s/p fall at [facility] on AC / [facility] Valve; found to be anemic also GI Bleed s/p EGD telemetry monitoring stop IV heparin, continue po coumadin, INR 2.5-3.5 cardio and GI f/u falls decubs PFX CM eval for DC planning back to [facility] when INR>2.5 d/w pt and staff
--- NOTE | 2019-01-29 13:06 | PN ---
Progress Note (short form) - Note Progress Note: s: no chest pain, palps, dizziness, dyspnea. Current Medications Buspirone HCl (Buspar -) 5 mg PO BID [facility] Last Admin: 01/29/19 09:01 Dose: 5 mg Folic Acid (Folic Acid -) 1 mg PO DAILY [facility] Last Admin: 01/29/19 09:01 Dose: 1 mg Furosemide (Lasix Injection -) 40 mg IVPUSH BIDLASIX [facility] Last Admin: 01/29/19 06:02 Dose: 40 mg Metoprolol Succinate (Toprol Xl -) 50 mg PO BID [facility] Last Admin: 01/29/19 09:01 Dose: 50 mg Pantoprazole Sodium (Protonix -) 40 mg PO BID [facility] Last Admin: 01/29/19 09:01 Dose: 40 mg Polyethylene Glycol (Miralax (For Daily Use) -) 17 gm PO DAILY [facility] Last Admin: 01/28/19 12:08 Dose: Not Given Senna (Senna -) 2 tab PO HS [facility] Last Admin: 01/28/19 21:57 Dose: 2 tab Warfarin Sodium (Coumadin -) 3 mg PO DAILY@1800 [facility] Last Admin: 01/28/19 17:30 Dose: 3 mg Vital Signs Period Temp Pulse Resp BP Sys/Vergara Pulse Ox Last 24 Hr 97.9 F-99.0 F 74-92 18-23 111-154/64-79 70-100 Constitutional: Yes: No Distress Cardiovascular: Yes: Pulse Irregular Respiratory: Yes: Other (rales at bases/) Gastrointestinal: Yes: Soft (NT) Edema: No Neurological: Yes: Alert, Oriented no jaundice, diaphoresis not agitated EKG: Image Reviewed Assessment/Plan EKG afib, no ischemic changes CXR: stephie pleural effusions, + congestive changes echo 12/2018 tds, EF 45-50% mildly reduced LV function, RV not well visualized, LA/RA severely dilated, [facility] MVR/AVR well seated, mild MR, mild AR tele: AF, good HR Fall: - patient denies syncope, dizziness--fall mechanical in nature - CT head no bleed - on obligatory AC for [facility] heart valves - phys therapy Acute diastolic HF exacerbation: - BNP >9000, JVD on exam with congestive changes on CXR - echo mildly reduced LV function with stable MVR/AVR function - desaturated 01/22 requiring incr NC oxygen. CXR with bilateral congestive changes. - initially diuresed here with lasix 40 iv bid, changed to 40 po bid--changed back to IV lasix (40 qd) 01/22 - remains on lasix 40 mg IV BID - CXR 01/27 shows stephie pleural effusions, congestive changes. sob has resolved. continue lasix, repeat CXR tomorrow Elevated trop: - indeterminate range, flat trend. no ischemic changes on EKG - no suspicion of ACS h/o mechanical MVR, AVR: - goal INR 2.5-3.5 - INR now >2.5, heparin dc'ed - echo shows stable valve function, outpatient follow up AFIB: - AC as above - cont metoprolol, rate stable Anemia: gastritis, sigmoid polyp removed, vascular ectasia: - counts downtrending here, transfused PRBC x 4 - s/p EGD/colo - heparin restarted, bridging to warfarin as above HLD - cont statin
[2019-01-29] MEDS: POLYETHYLENE GLYCOL 3350 119 GM BTL PO SCH (13:28)
[2019-01-29] MEDS ORDERED: PT OWN MED DRAWER 7, Y5N ONE (17:29)
[2019-01-29] MEDS: WARFARIN NA 3 MG TABLET PO SCH (17:30)
[2019-01-29] MEDS: SENNOSIDES 8.6MG TABLET (FP) PO SCH (21:06)
[2019-01-30] MEDS: FUROSEMIDE 40 MG/4 ML INJECTABLE VIAL IVPUSH SCH ×2 (05:36→15:04)
[2019-01-30 06:58] LABS: BASO % 1.4 % (0-2.0); HEMATOCRIT 29.9 % (32.4-45.2); HEMOGLOBIN 9.5 GM/dL (10.7-15.3); LYMPH % 7.7 % (8-40); MCH 31.3 pg (25.7-33.7); MCHC 31.7 g/dl (32.0-36.0); MEAN CELL VOLUME 98.5 fl (80-96); MEAN PLT VOLUME 7.4 fl (7.5-11.1); MONO % 11.4 % (3.8-10.2); NEUT % 76.5 % (42.8-82.8); PLATELET COUNT 239 K/MM3 (134-434); RBC 3.03 M/mm3 (3.60-5.2); RDW 19.3 % (11.6-15.6); WHITE BLOOD COUNT 4.5 K/mm3 (4.0-10.0)
[2019-01-30 07:12] LABS: INR 3.12 (0.83-1.09); PROTHROMBIN TIME (PATIENT) 37.2 SEC (9.7-13.0)
[2019-01-30 07:36] LABS: ALBUMIN 2.8 g/dl (3.4-5.0); BILIRUBIN,TOTAL 0.4 mg/dL (0.2-1); BLOOD UREA NITROGEN 24.8 mg/dL (7-18); CALCIUM 8.5 mg/dL (8.5-10.1); POTASSIUM 3.5 mmol/L (3.5-5.1); TOT PROT 5.4 g/dl (6.4-8.2)
[2019-01-30] MEDS: PANTOPRAZOLE 40 MG TABLET (FP) PO SCH (10:10)
[2019-01-30] MEDS: busPIRone HCL 5 MG TABLET PO SCH (10:10)
[2019-01-30] MEDS: FOLIC ACID 1 MG TABLET (FP) PO SCH (10:10)
[2019-01-30] MEDS: POLYETHYLENE GLYCOL 3350 119 GM BTL PO SCH (10:11)
--- NOTE | 2019-01-30 11:16 | PN ---
Progress Note, Physician Chief Complaint: OOB to chair NAD VSS INR 3.1 d/w cardio can go home on po lasix; pt wants to go back to [facility] d/w staff - Current Medication List Current Medications: Active Medications Buspirone HCl (Buspar -) 5 mg PO BID [facility] Last Admin: 01/30/19 10:10 Dose: 5 mg Folic Acid (Folic Acid -) 1 mg PO DAILY [facility] Last Admin: 01/30/19 10:10 Dose: 1 mg Furosemide (Lasix Injection -) 40 mg IVPUSH BIDLASIX [facility] Last Admin: 01/30/19 05:36 Dose: 40 mg Metoprolol Succinate (Toprol Xl -) 50 mg PO BID [facility] Last Admin: 01/30/19 10:10 Dose: 50 mg Pantoprazole Sodium (Protonix -) 40 mg PO BID [facility] Last Admin: 01/30/19 10:10 Dose: 40 mg Polyethylene Glycol (Miralax (For Daily Use) -) 17 gm PO DAILY [facility] Last Admin: 01/30/19 10:11 Dose: Not Given Senna (Senna -) 2 tab PO HS [facility] Last Admin: 01/29/19 21:06 Dose: Not Given Warfarin Sodium (Coumadin -) 3 mg PO DAILY@1800 [facility] Last Admin: 01/29/19 17:30 Dose: 3 mg Warfarin Sodium (Coumadin -) 1 mg PO ONCE@1800 ONE Stop: 01/30/19 18:01 - Objective Vital Signs: Vital Signs Temperature 97.6 F 01/30/19 00:00 Pulse Rate 80 01/30/19 00:00 Respiratory Rate 26 H 01/29/19 19:43 Blood Pressure 131/87 01/30/19 00:00 O2 Sat by Pulse Oximetry (%) 100 01/30/19 10:00 Constitutional: Yes: No Distress, Calm Eyes: Yes: Conjunctiva Clear HENT: Yes: Atraumatic Neck: Yes: Supple Cardiovascular: No: Regular Rate and Rhythm Respiratory: Yes: Diminished Gastrointestinal: Yes: Soft. No: Tenderness Genitourinary: No: Hematuria Musculoskeletal: No: Joint Stiffness, Joint Swelling Extremities: No: Cold, Cool Edema: No Integumentary: No: Rash, Venous Stasis Changes Neurological: Yes: WNL, Alert, Oriented ...Motor Strength: WNL Psychiatric: Yes: WNL, Alert, Oriented. No: Agitated, Suicidal Ideation Labs: CBC, BMP 01/30/19 05:50 01/30/19 05:50 INR, PTT INR 3.12 (0.83-1.09) H 01/30/19 05:50 - ....Imaging Other: Report Reviewed Assessment/Plan Leena Oliva is a 83yo F h/o HTN, a fib, valve replacement (20yrs ago) on coumadin and 3L NC baseline presenting with head trauma s/p fall. s/p fall at [facility] on AC / mec Valve; found to be anemic also GI Bleed s/p EGD telemetry on po coumadin, INR 2.5-3.5 po lasix cardio and GI f/u falls decubs PFX CM eval for DC planning back to [facility] d/w pt and staff
[2019-01-30 14:13] VITALS: TEMP 98.5
--- NOTE | 2019-01-30 16:09 | PN ---
Progress Note (short form) - Note Progress Note: s: no chest pain, palps, dizziness, dyspnea. Current Medications Buspirone HCl (Buspar -) 5 mg PO BID [facility] Last Admin: 01/30/19 10:10 Dose: 5 mg Folic Acid (Folic Acid -) 1 mg PO DAILY [facility] Last Admin: 01/30/19 10:10 Dose: 1 mg Furosemide (Lasix -) 80 mg PO BID@0600,1400 [facility] Metoprolol Succinate (Toprol Xl -) 50 mg PO BID [facility] Last Admin: 01/30/19 10:10 Dose: 50 mg Pantoprazole Sodium (Protonix -) 40 mg PO BID [facility] Last Admin: 01/30/19 10:10 Dose: 40 mg Polyethylene Glycol (Miralax (For Daily Use) -) 17 gm PO DAILY [facility] Last Admin: 01/30/19 10:11 Dose: Not Given Senna (Senna -) 2 tab PO HS [facility] Last Admin: 01/29/19 21:06 Dose: Not Given Warfarin Sodium (Coumadin -) 3 mg PO DAILY@1800 [facility] Last Admin: 01/29/19 17:30 Dose: 3 mg Warfarin Sodium (Coumadin -) 1 mg PO ONCE@1800 ONE Stop: 01/30/19 18:01 Vital Signs Period Temp Pulse Resp BP Sys/Vergara Pulse Ox Last 24 Hr 97.6 F-98.5 F 69-80 20-26 110-133/60-88 100-100 Constitutional: Yes: No Distress Cardiovascular: Yes: Pulse Irregular Respiratory: Yes: Other (rales at bases/) Gastrointestinal: Yes: Soft (NT) Edema: No Neurological: Yes: Alert, Oriented no jaundice, diaphoresis not agitated EKG: Image Reviewed Assessment/Plan EKG afib, no ischemic changes CXR: stephie pleural effusions, + congestive changes echo 12/2018 tds, EF 45-50% mildly reduced LV function, RV not well visualized, LA/RA severely dilated, [facility] MVR/AVR well seated, mild MR, mild AR tele: AF, rate controlled Fall: - patient denies syncope, dizziness--fall mechanical in nature - CT head no bleed - on obligatory AC for [facility] heart valves - phys therapy Acute diastolic HF exacerbation: - BNP >9000, JVD on exam with congestive changes on CXR - echo mildly reduced LV function with stable MVR/AVR function - desaturated 01/22 requiring incr NC oxygen. CXR with bilateral congestive changes. - initially diuresed here with lasix 40 iv bid, changed to 40 po bid--changed back to IV lasix (40 qd) 01/22 - diuresed on lasix 40 mg IV BID - CXR 01/27 shows stephie pleural effusions, congestive changes. sob has resolved. continue lasix - CXR improving, sob resolved. Will transition to lasix 80 mg PO BID Elevated trop: - indeterminate range, flat trend. no ischemic changes on EKG - no suspicion of ACS h/o mechanical MVR, AVR: - goal INR 2.5-3.5 - INR now >2.5, heparin dc'ed - echo shows stable valve function, outpatient follow up AFIB: - AC as above - cont metoprolol, rate stable Anemia: gastritis, sigmoid polyp removed, vascular ectasia: - counts downtrending here, transfused PRBC x 4 - s/p EGD/colo - heparin restarted, bridging to warfarin as above HLD - cont statin\ stable for dc from cardiac perspective
--- NOTE | 2019-01-30 17:25 | DS ---
Physical Examination Vital Signs: Vital Signs Temperature 98.5 F 01/30/19 11:00 Pulse Rate 79 01/30/19 11:00 Respiratory Rate 20 01/30/19 11:00 Blood Pressure 110/72 01/30/19 11:00 O2 Sat by Pulse Oximetry (%) 100 01/30/19 10:00 Findings/Remarks: see Progress note for HPI, ROS, PE. 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 CXRs. Head, Facial, C spine CT scans Hospital Course: Pt with significant PMHx/o heart mechanical valve on AC, recent severe anemia that required 3 units of PRBC Tx came to ER after fall and head trauma at [facility]; pt was noticed to have elevated Trop I (R/O PA), to be anemic, to have subtherapeutic INR. Pt was admitted to Telemetry, received PRBC Tx, was started on Heparin drip and Warfarin dose was adjusted (to keep INR between 2.5 and 3.5) . Pt Hb kept dropping and required additional PRBC Tx ( total of four units). Pt was seen by Cardiology (Dr Maher/ Sean/ Veena), GI (Dr Shearer), Hematology (Dr Spivey). Pt underwent EGD and colonoscopy ( positive for sigmoid polyp, s/p polypectomy; cecal angiodysplasia; antral erosive gastritis). Pt received IV Iron infusion (x 2). Pt required extensive IV Lasix treatment secondary to Acute diastolic HF exacerbation with bilateral pleural effusions. Pt to be DC'ed back to [facility] with close monitoring of INR and CBC Plan of Treatment: INR in AM X 3 consecutive days. CBC in AM weekly X 4 weeks. Condition: Improved - Instructions Diet, Activity, Other Instructions: resume diet. Disposition: HALF-WAY FACILITY - Home Medications Comprehensive Discharge Medication List: Ambulatory Orders See patient discharge instructions
[2019-01-30] MEDS ORDERED: WARFARIN NA 1 MG TABLET (FP) PO ONE (18:00)
[2019-01-30 18:16] VITALS: PULSE 82
[2019-01-30 18:45] VITALS: BP 122/71
[2019-01-31] MEDS ORDERED: FUROSEMIDE 40 MG TABLET (FP) PO SCH (06:00)
== END 2019-01-30 18:43 | DRG 377 ==
LOC: JER 20:41 → JERBED 23:35 → J2W 01-08 03:07
PROVIDERS: ADMIT Specialist; ATTEND Specialist
PROC: 30233N1 Transfusion of Nonautologous Red Blood Cells into Peripheral Vein, Percutaneous Approach (ICD-10-PCS; 2019-01-08)
PROC: 0DBN8ZX Excision of Sigmoid Colon, Via Natural or Artificial Opening Endoscopic, Diagnostic (ICD-10-PCS; 2019-01-20)
PROC: 0DJ08ZZ Inspection of Upper Intestinal Tract, Via Natural or Artificial Opening Endoscopic (ICD-10-PCS; principal; 2019-01-20 12:30)
DX: K29.71 Gastritis, unspecified, with bleeding (principal); I50.33 Acute on chronic diastolic (congestive) heart failure; I48.20 Chronic atrial fibrillation, unspecified; Z68.1 Body mass index [BMI] 19.9 or less, adult; K31.819 Angiodysplasia of stomach and duodenum without bleeding; D50.9 Iron deficiency anemia, unspecified; D64.9 Anemia, unspecified; R55 Syncope and collapse; I10 Essential (primary) hypertension; K63.5 Polyp of colon; E78.5 Hyperlipidemia, unspecified; K57.30 Diverticulosis of large intestine without perforation or abscess without bleeding
CPT/HCPCS: 36415; 36430; 36511; 70450-TC; 70486-TC; 71045-TC-FY; 72125-TC; 80048; 80053; 81003; 82248; 82272; 82550; 82607; 82728; 82747; 82962; 83010; 83540; 83550; 83615; 83880; 84443; 84484; 85014; 85025; 85027; 85044; 85610; 85730; 86850; 86900; 86901; 86922; 87086; 88300-TC; 88305-TC; 93005; 93010; 93306-TC; 97116-GP; 97161-GP; 99283-25; J1644; J1756; P9038; P9058